=== PATIENT | male | born 1945 | race Caucasian/White ===

== ENCOUNTER 2016-12-14 14:04 | Inpatient (IN) | payer OTHER, BC ==
[2016-12-14 14:48] VITALS: BMI 30.2
[2016-12-14] MEDS ORDERED: MIDAZOLAM HCL 2 MG/2 ML SINGLE DOSE VIAL ONE ×3 (16:09→17:52)
[2016-12-14] MEDS ORDERED: PROPOFOL 20 ML ONE ×3 (16:09→19:11)
[2016-12-14] MEDS ORDERED: LIDOCAINE HCL/PF 2% SDV 5ML VIAL ONE (16:09)
[2016-12-14] MEDS ORDERED: ROPIVACAINE HCL 0.5% 30ML VIAL ONE (16:24)
[2016-12-14] MEDS ORDERED: BUPIVACAINE HCL/PF 0.5% (5MG/ML) 10 ML VIAL ONE (16:38)
[2016-12-14] MEDS ORDERED: HYDROmorphone *PCA* 10MG/50ML DISP.SYRIN PCA ONE (16:56)
[2016-12-14] MEDS ORDERED: ceFAZolin SODIUM 1 GM VIAL ONE (17:25)
[2016-12-14] MEDS ORDERED: HYDROmorphone *PCA* 10MG/50ML DISP.SYRIN PCA SCH (17:30)
[2016-12-14] MEDS ORDERED: VANCOMYCIN 1,000 MG VIAL (RESTRICTED TO ID ONLY) ONE (17:51)
[2016-12-14] MEDS ORDERED: TRANEXAMIC ACID 1000 MG/10 ML VIAL ONE (17:51)
[2016-12-14] MEDS ORDERED: TRANEXAMIC ACID 1000 MG/10 ML VIAL IVPUSH ONE ×2 (19:41→21:30)
[2016-12-14] MEDS ORDERED: MAG HYDROX/AL HYDROX/SIMETH 30 ML UNIT-DOSE CUP PO PRN (20:09)
[2016-12-14] MEDS ORDERED: ONDANSETRON 4 MG/2 ML VIAL IVPB PRN (20:09)
[2016-12-14] MEDS ORDERED: MAGNESIUM HYDROX 2400MG/30ML ORAL SUSPENSION 30 ML CUP PO PRN (20:09)
[2016-12-14] MEDS ORDERED: LACTATED RINGERS SOLUTION 1,000 ML IV SCH (20:15)
[2016-12-14] MEDS ORDERED: PICC LINE 8 ML FLUSH PROTOCOL IVPUSH PRN (20:16)
[2016-12-14 20:47] LABS: SYNOVIAL FLUID LYMPHOCYTES 3 %; SYNOVIAL FLUID MONOCYTES 2 %; SYNOVIAL FLUID NEUTROPHILS 93 %
[2016-12-14] MEDS ORDERED: PATIENT'S OWN MEDICATION (NON-FORMULARY) (Sitagliptin Phos/Metformin Hcl [Janumet 50-500 M PO SCH (22:00)
[2016-12-14] MEDS: metFORMIN HCL 500 MG TABLET (FP) PO SCH (23:00)
[2016-12-14] MEDS: sitaGLIPtin PHOSPHATE 50 MG TABLET PO SCH (23:00)
[2016-12-14] MEDS: FERROUS SO4 325 MG TABLET (FP) PO SCH (23:01)
[2016-12-14] MEDS: ATORVASTATIN CA 20 MG TABLET (FP) PO SCH (23:01)
[2016-12-14] MEDS: GABAPENTIN 300 MG CAPSULE (FP) PO SCH (23:01)
[2016-12-14] MEDS: ASCORBIC ACID 500 MG TABLET (FP) PO SCH (23:01)
[2016-12-14] MEDS: SENNOSIDES/DOCUSATE COMBO (SENNA PLUS) TABLET (UD) PO SCH (23:02)
[2016-12-14] MEDS: METOPROLOL TARTRATE 50 MG TABLET (FP) PO SCH (23:04)
[2016-12-15] MEDS ORDERED: VANCOMYCIN 1,000 MG in DEXTROSE 5%-WATER - 250 ML IVPB SCH ×2 (04:30→10:15)
[2016-12-15] MEDS ORDERED: VANCOMYCIN 1 GRAM (PRE-DOCKED) 1,000 MG/250 ML BAG IVPB ONE (04:30)
[2016-12-15 09:01] LABS: MCH 25.9 pg (25.7-33.7); MCHC 32.2 g/dl (32.0-35.9); MEAN CELL VOLUME 80.5 fl (80-96); MEAN PLT VOLUME 7.6 fl (7.5-11.1); PLATELET COUNT 243 K/MM3 (134-434); RDW 13.1 % (11.9-15.9); WHITE BLOOD COUNT 8.6 K/mm3 (4.0-10.8)
--- NOTE | 2016-12-15 09:06 | CONSULT ---
[id number] medical management HISTORY OF PRESENT ILLNESS: patient is a 71 y/o male with a past medical history of CAD (S/P CABAG '07), HLD, HTN, OA, NIDDM. Patient is s/p Left TKR (, Felice) and left quadricep tendon repair (12/15/15, Felice). He reports pain and swelling to the left knee for 1 week, was evaluated by Dr Viveros in the office, left knee aspirated 12/04/16, +staph epidymedis. He was brought to the OR on 12/14/16, pt is s/p left knee I/D with poly exhange (12/14/16), POD #1, ( Felice). REVIEW OF SYSTEMS: CONSTITUTIONAL: Absent: fever, chills, diaphoresis, generalized weakness, malaise, loss of appetite, weight change HEENT: Absent: rhinorrhea, nasal congestion, throat pain, throat swelling, difficulty swallowing, mouth swelling, ear pain, eye pain, visual changes CARDIOVASCULAR: Absent: chest pain, syncope, palpitations, irregular heart rate, lightheadedness , peripheral edema RESPIRATORY: Absent: cough, shortness of breath, dyspnea with exertion, orthopnea, wheezing, stridor, hemoptysis GASTROINTESTINAL: Absent: abdominal pain, abdominal distension, nausea, vomiting, diarrhea, constipation, melena, hematochezia GENITOURINARY: Absent: dysuria, frequency, urgency, hesitancy, hematuria, flank pain, genital pain MUSCULOSKELETAL: Present: left knee pain upon movement Absent: myalgia, arthralgia, joint swelling, back pain, neck pain SKIN: Absent: rash, itching, pallor HEMATOLOGIC/IMMUNOLOGIC: Absent: easy bleeding, easy bruising, lymphadenopathy, frequent infections ENDOCRINE: Absent: unexplained weight gain, unexplained weight loss, heat intolerance, cold intolerance NEUROLOGIC: Absent: headache, focal weakness or paresthesias, dizziness, unsteady gait, seizure, mental status changes, bladder or bowel incontinence PSYCHIATRIC: Absent: anxiety, depression, suicidal or homicidal ideation, hallucinations. PHYSICAL EXAMINATION Vital Signs - 24 hr 12/14/16 12/14/16 12/14/16 14:33 20:25 20:30 Temperature 99.5 F 97.4 F L 97.4 F L Pulse Rate 89 60 56 L Respiratory 17 16 16 Rate Blood Pressure 110/51 85/45 89/51 O2 Sat by Pulse 98 98 Oximetry (%) 12/14/16 12/14/16 12/14/16 20:35 20:40 20:55 Temperature 97.4 F L 97.4 F L 97.4 F L Pulse Rate 60 60 60 Respiratory 16 16 16 Rate Blood Pressure 74/48 95/47 108/70 O2 Sat by Pulse 99 100 100 Oximetry (%) 12/14/16 12/14/16 12/14/16 21:00 21:10 21:25 Temperature 97.4 F L 97.4 F L Pulse Rate 60 60 67 Respiratory 16 16 20 Rate Blood Pressure 108/70 92/55 95/53 O2 Sat by Pulse 100 100 Oximetry (%) 12/14/16 12/14/16 12/14/16 21:30 21:40 21:55 Temperature 97.4 F L 97.4 F L Pulse Rate 67 62 62 Respiratory 20 16 16 Rate Blood Pressure 95/53 95/53 99/51 O2 Sat by Pulse 99 99 Oximetry (%) 12/14/16 12/14/16 12/14/16 22:02 22:30 23:15 Temperature 97.4 F L 97.4 F L Pulse Rate 62 56 L Respiratory 16 18 Rate Blood Pressure 99/51 94/48 O2 Sat by Pulse 100 Oximetry (%) 12/15/16 12/15/16 01:53 06:00 Temperature 97.6 F Pulse Rate 59 L 59 L Respiratory 17 19 Rate Blood Pressure 100/56 107/55 O2 Sat by Pulse 100 Oximetry (%) PHYSICAL EXAMINATION GENERAL: Awake, alert, and fully oriented, in no acute distress. HEAD: Normal with no signs of trauma. EYES: Pupils equal, round and reactive to light, extraocular movements intact, sclera anicteric, conjunctiva clear. No lid lag. EARS, NOSE, THROAT: Ears normal, nares patent, oropharynx clear without exudates. Moist mucous membranes. NECK: Normal range of motion, supple without lymphadenopathy, JVD, or masses. LUNGS: Breath sounds equal, clear to auscultation bilaterally. No wheezes, and no crackles. No accessory muscle use. HEART: Regular rate and rhythm, normal S1 and S2 without murmur, rub or gallop. ABDOMEN: Soft, nontender, not distended, normoactive bowel sounds, no guarding, no rebound, no masses. No hepatomegaly or splenomegaly. MUSCULOSKELETAL: Normal range of motion at all joints. No bony deformities or tenderness. No CVA tenderness. UPPER EXTREMITIES: 2+ pulses, warm, well-perfused. No cyanosis. No clubbing. Cap refill <2 seconds. No peripheral edema. LOWER EXTREMITIES: 2+ pulses, warm, well-perfused. No calf tenderness. No peripheral edema. LEFT LOWER EXTREMITY: knee immobilizer, scd/milo, less than 3 second capillary refill, +3 pedal pulse. pt is able to move the digits of the foot w/o difficulty. NEUROLOGICAL: Cranial nerves II-XII intact. Normal speech. Normal gait. PSYCHIATRIC: Cooperative. Good eye contact. Appropriate mood and affect. SKIN: Warm, dry, normal turgor, no rashes or lesions noted. Laboratory Results - last 24 hr 12/14/16 12/14/16 12/14/16 05:30 16:04 21:59 POC Glucometer 129 182 Synovial Source Synovial fluid Synovial WBC 97523 Synovial RBC 18638 Synovial Neutrophils 93 Synovial Lymphocytes 3 Synovial Monocytes 2 CBC WBC 8.6 K/mm3 (4.0-10.8) 12/15/16 08:00 RBC 3.29 M/mm3 (4.00-5.60) L D 12/15/16 08:00 Hgb 8.5 GM/dl (11.7-16.9) L D 12/15/16 08:00 Hct 26.5 % (35.4-49) L D 12/15/16 08:00 MCV 80.5 fl (80-96) 12/15/16 08:00 MCHC 32.2 g/dl (32.0-35.9) 12/15/16 08:00 RDW 13.1 % (11.9-15.9) 12/15/16 08:00 Plt Count 243 K/MM3 (134-434) D 12/15/16 08:00 MPV 7.6 fl (7.5-11.1) 12/15/16 08:00 CMP Sodium 133 mmol/L (136-145) L 12/15/16 08:00 Potassium 3.6 mmol/L (3.5-5.1) 12/15/16 08:00 Chloride 98 mmol/L (98-107) 12/15/16 08:00 Carbon Dioxide 25 mmol/L (22-28) 12/15/16 08:00 Anion Gap 10 (8-16) 12/15/16 08:00 BUN 20 mg/dl (7-18) H D 12/15/16 08:00 Creatinine 1.1 mg/dl (0.6-1.3) 12/15/16 08:00 POC Glucometer 182 UNITS (()) 12/14/16 21:59 Random Glucose 132 mg/dl (74-106) H 12/15/16 08:00 Calcium 8.3 mg/dl (8.4-10.2) L 12/15/16 08:00 Active Medications Generic Name Dose Route Start Last Admin Trade Name Freq PRN Reason Stop Dose Admin Al Hydroxide/Mg Hydroxide 30 ml 12/14/16 20:09 Mylanta Oral Suspension - PO Q4H PRN DYSPEPSIA Ascorbic Acid 500 mg 12/14/16 22:00 12/14/16 23:01 Vitamin C - PO 500 mg BID NEHEMIAS Administration Aspirin 325 mg 12/15/16 18:00 Asa - PO BID NEHEMIAS Atorvastatin Calcium 20 mg 12/14/16 22:00 12/14/16 23:01 Lipitor - PO 20 mg HS NEHEMIAS Administration Celecoxib 200 mg 12/15/16 10:00 Celebrex - PO DAILY NEHEMIAS Ferrous Sulfate 325 mg 12/14/16 22:00 12/14/16 23:01 Feosol - PO 325 mg BID NEHEMIAS Administration Gabapentin 300 mg 12/14/16 22:00 12/14/16 23:01 Neurontin - PO 12/17/16 21:59 300 mg BID NEHEMIAS Administration HCTZ/Losartan Potassium 2 tab 12/15/16 10:00 Hyzaar - PO DAILY NEHEMIAS Hydromorphone HCl 10 mg 12/14/16 17:30 12/14/16 21:53 Dilaudid Endodontic Assistant - GENERATOR REBUILDER 12/21/16 17:26 0.2 mg GENERATOR REBUILDER NEHEMIAS Administration Protocol IV Flush 8 ml 12/14/16 20:16 Picc Line Flush IVPUSH PRN PRN Protocol Vancomycin HCl 1,000 mg/ 250 mls @ 250 mls/hr 12/15/16 04:30 Dextrose IVPB Q12H NEHEMIAS Protocol Insulin Aspart 1 vial 12/15/16 07:00 Novolog Vial Sliding Scale - SQ 12/18/16 06:59 TIDAC [facility] Protocol Magnesium Hydroxide 30 ml 12/14/16 20:09 Milk Of Magnesia - PO PRN PRN CONSTIPATION Metformin HCl 500 mg 12/14/16 22:00 12/14/16 23:00 Glucophage - PO 500 mg HS NEHEMIAS Administration Metoprolol Tartrate 50 mg 12/14/16 22:00 12/14/16 23:04 Lopressor - PO Not Given BID NEHEMIAS Multivitamins/Minerals/Vitamin C 1 tab 12/15/16 10:00 Tab-A-Vit - PO DAILY NEHEMIAS Ondansetron HCl 4 mg 12/14/16 20:09 Zofran Injection IVPB Q6H PRN NAUSEA Pantoprazole Sodium 40 mg 12/15/16 10:00 Protonix - PO DAILY NEHEMIAS Paroxetine HCl 10 mg 12/15/16 10:00 Paxil - PO DAILY NEHEMIAS Senna/Docusate Sodium 1 tablet 12/14/16 22:00 12/14/16 23:02 Pericolace - PO 1 tablet BID NEHEMIAS Administration Sitagliptin Phosphate 50 mg 12/14/16 22:00 12/14/16 23:00 Januvia - PO 50 mg HS NEHEMIAS Administration ASSESSMENT/PLAN: 1) s/p left knee I&D w/poly exchange POD #1 - f/u intraoperative cultures, synovial fluid culture 12/07/16, + staph epidermidis, continue vanc (5/5 - ) and cefepime (5/5 - ) - PT as per ortho regimen - continue dilaudid 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 Thank you for this consultative opportunity. Visit type - Emergency Visit Emergency Visit: No - New Patient This patient is new to me today: Yes Date on this admission: 12/15/16 - Critical Care Critical Care patient: No
[2016-12-15 09:14] LABS: ANION GAP 10 (8-16); CALCIUM 8.3 mg/dl (8.4-10.2); CO2 25 mmol/L (22-28); CREATININE 1.1 mg/dl (0.6-1.3); GLUCOSE,RANDOM 132 mg/dl (74-106)
--- NOTE | 2016-12-15 09:52 | PN ---
Progress Note (short form) - Note Progress Note: ANESTHESIOLOGY POST-OP CHECK 71M s/p left knee I&D under spinal anesthesia and left femoral nerve block. Pain 08/22. Denies, N/V, backache, headache. Not yet OOB. Vital Signs Temperature 97.6 F 12/15/16 06:00 Pulse Rate 59 L 12/15/16 06:00 Respiratory Rate 19 12/15/16 06:00 Blood Pressure 107/55 12/15/16 06:00 O2 Sat by Pulse Oximetry (%) 100 12/15/16 06:00 Active Medications Al Hydroxide/Mg Hydroxide (Mylanta Oral Suspension -) 30 ml PO Q4H PRN PRN Reason: DYSPEPSIA Ascorbic Acid (Vitamin C -) 500 mg PO BID [facility] Last Admin: 12/14/16 23:01 Dose: 500 mg Aspirin (Asa -) 325 mg PO BID [facility] Atorvastatin Calcium (Lipitor -) 20 mg PO HS [facility] Last Admin: 12/14/16 23:01 Dose: 20 mg Celecoxib (Celebrex -) 200 mg PO DAILY [facility] Ferrous Sulfate (Feosol -) 325 mg PO BID [facility] Last Admin: 12/14/16 23:01 Dose: 325 mg Gabapentin (Neurontin -) 300 mg PO BID [facility] Stop: 12/17/16 21:59 Last Admin: 12/14/16 23:01 Dose: 300 mg HCTZ/Losartan Potassium (Hyzaar -) 2 tab PO DAILY [facility] Hydromorphone HCl (Dilaudid Safety Representative -) 10 mg LABORATORY CUREMAN LABORATORY CUREMAN [facility] PRN Reason: Protocol Stop: 12/21/16 17:26 Last Admin: 12/14/16 21:53 Dose: 0.2 mg IV Flush (Picc Line Flush) 8 ml IVPUSH PRN PRN PRN Reason: Protocol Vancomycin HCl 1,000 mg/ (Dextrose) 250 mls @ 250 mls/hr IVPB Q12H NEHEMIAS PRN Reason: Protocol Insulin Aspart (Novolog Vial Sliding Scale -) 1 vial SQ TIDAC NEHEMIAS PRN Reason: Protocol Stop: 12/18/16 06:59 Magnesium Hydroxide (Milk Of Magnesia -) 30 ml PO PRN PRN PRN Reason: CONSTIPATION Metformin HCl (Glucophage -) 500 mg PO HS [facility] Last Admin: 12/14/16 23:00 Dose: 500 mg Metoprolol Tartrate (Lopressor -) 50 mg PO BID [facility] Last Admin: 12/14/16 23:04 Dose: Not Given Multivitamins/Minerals/Vitamin C (Tab-A-Vit -) 1 tab PO DAILY [facility] Ondansetron HCl (Zofran Injection) 4 mg IVPB Q6H PRN PRN Reason: NAUSEA Pantoprazole Sodium (Protonix -) 40 mg PO DAILY [facility] Paroxetine HCl (Paxil -) 10 mg PO DAILY [facility] Senna/Docusate Sodium (Pericolace -) 1 tablet PO BID [facility] Last Admin: 12/14/16 23:02 Dose: 1 tablet Sitagliptin Phosphate (Januvia -) 50 mg PO HS [facility] Last Admin: 12/14/16 23:00 Dose: 50 mg GEn: Awake, alert Ext: No motor or sensory deficits No apparent anesthesia complications. Pain well controlled. D/C LABORATORY CUREMAN. Continue management as per primary team
[2016-12-15] MEDS: PANTOPRAZOLE 40 MG TABLET (FP) PO SCH (09:54)
[2016-12-15] MEDS: PARoxetine HCL 10 MG TABLET (FP) PO SCH (09:54)
[2016-12-15] MEDS: SENNOSIDES/DOCUSATE COMBO (SENNA PLUS) TABLET (UD) PO SCH ×2 (09:55→21:14)
[2016-12-15] MEDS: ASCORBIC ACID 500 MG TABLET (FP) PO SCH ×2 (09:56→21:14)
[2016-12-15] MEDS: CELECOXIB 200 MG CAPSULE PO SCH (09:56)
[2016-12-15] MEDS: GABAPENTIN 300 MG CAPSULE (FP) PO SCH ×2 (09:56→21:14)
[2016-12-15] MEDS: MULTIVITAMINS (DAILY MVI) TABLET (FP) PO SCH (09:56)
[2016-12-15] MEDS: FERROUS SO4 325 MG TABLET (FP) PO SCH ×2 (09:57→21:14)
[2016-12-15] MEDS: LOSARTAN 50MG/HCTZ 12.5MG 1 TAB (FP) PO SCH (09:57)
[2016-12-15] MEDS: METOPROLOL TARTRATE 50 MG TABLET (FP) PO SCH ×2 (09:57→21:15)
[2016-12-15] MEDS: INSULIN SLIDING SCALE (NOVOLOG) 1 VIAL SQ SCH ×3 (10:00→19:04)
--- NOTE | 2016-12-15 10:07 | PN ---
Progress Note (short form) - Note Progress Note: ID Consult dictated POD #1 washout/ poly liner exchange L TKR Await operative c/s Obtain BC,ESR,CRP Pending c/s empiric vancomycin/ cefepime
[2016-12-15] MEDS ORDERED: CEFEPIME HCL 1 GM VIAL (RESTRICTED TO ID) IVPB SCH (10:15)
[2016-12-15] MEDS: CEFEPIME 1 GM/100 ML BAG PRE-DOCKED IVPB SCH ×2 (11:44→17:17)
--- NOTE | 2016-12-15 13:10 | CONS ---
DATE OF CONSULTATION: HISTORY: The patient is a 71-year-old male with a history of osteoarthritis who was evaluated for infected total knee replacement. The patient underwent a left total knee replacement on October 20, 2015. His immediate postoperative course was uncomplicated. On or about December 15, 2015 he sustained an injury to his left lower extremity resulting in a quadriceps tear. The patient was seen at that time and recovered. He had been doing well up until approximately 3 weeks ago. He reports that upon awakening approximately 3 weeks ago he had abrupt onset of left knee swelling. It became progressively worse. He was seen as an outpatient where an arthrocentesis was performed and synovial fluid sent for culture. Cultures sent from December 04, 2016 were positive for Staphylococcus epidermidis. Synovial fluid at that time showed 58,000 white cells, 97% of which were polys. He is now admitted to the hospital. A repeat synovial fluid sampling showed 93,000 white cells, 93% of which were polys. He was taken to the operating room where a washout of the left knee was performed with polyethylene liner exchange. Cultures are pending. He denies any fever or chills. He denies history of series soft tissue infection requiring hospitalization or history of MRSA. PAST MEDICAL HISTORY: Positive for osteoarthritis, diabetes mellitus, hypertension, hernia repair. MEDICATIONS: Include metoprolol, losartan, simvastatin, Janumet, Paxil, aspirin. PAST SURGICAL HISTORY: Status post coronary artery bypass graft. ALLERGIES: No known drug allergies. SOCIAL HISTORY: He lives at home. He is a former smoker. Occasional ETOH. REVIEW OF SYSTEMS: Neurologic: No loss of consciousness, seizure activity, focal weakness. Cardiac: Negative chest pain or palpitations. Respiratory: Negative cough or sputum production. Gastrointestinal: Negative vomiting or diarrhea. Genitourinary: Negative for urinary tract infection. LABORATORY DATA: White count 9.2, hematocrit 35.7, platelet count 364, BUN 29, creatinine 1.3. PHYSICAL EXAMINATION: General: He is awake and alert. He is not acutely toxic appearing. Vital Signs: Temperature 97.6, blood pressure 107/55, pulse 59 and regular, respirations 19 per minute. HEENT: Sclerae anicteric. Heart: Sounds S1, S2. Lungs: Clear bilaterally. No rhonchi, rales, or wheezing. Abdomen: Soft. No tenderness elicited. No mass, rebound, or rigidity. Extremities: Left lower extremity is in an immobilizing cast. There is a drainage catheter present with serosanguineous fluid. IMPRESSION: 1. Postoperative day number 1. Washout/polyethylene liner exchange left total knee replacement. 2. Infected left total knee replacement. 3. Azotemia. PLAN: Await culture results. Synovial fluid culture from December 04 grew Staphylococcus epidermidis. We will continue vancomycin 1 g IV piggyback every 12 hours. Add cefepime 1 g IV piggyback every 8 hours pending culture results. Further recommendations pending. Cultures will follow. Thank you for the kind referral. LAWSON NDIAYE M.D. [id number]
[2016-12-15] MEDS: VANCOMYCIN 1 GRAM (PRE-DOCKED) 1,000 MG/250 ML BAG IVPB SCH (17:17)
[2016-12-15] MEDS: ASPIRIN 325 MG TABLET PO SCH ×2 (17:17→21:15)
--- NOTE | 2016-12-15 17:58 | OP ---
DATE OF OPERATION: 12/14/2016 SURGEON: Ge Viveros M.D. SIGN POSTER: Michael Dubose, whose skilled surgical assistance was necessary for the retraction and protection of vital structures, for the handling and implementation of precise and delicate surgical instrumentation as well as overall safe conveyance of the procedure. ANESTHESIOLOGIST: Scott Falk M.D. TYPE OF ANESTHESIA: Femoral nerve block with spinal. PREOPERATIVE DIAGNOSIS: Infected left total knee replacement. POSTOPERATIVE DIAGNOSIS: Probable infected left total knee replacement. PROCEDURE: Irrigation and debridement of probable infected total knee replacement with polyethylene liner exchange. BLOOD LOSS: Approximately 300 mL. ANTIBIOTICS: Administered after obtaining cultures, Kefzol and vancomycin were given after obtaining cultures. Cultures were sent to pathology. Tissue, which was extensive, the entire synovium of the knee was removed, was sent to pathology as well as prior polyethylene spacer. Approximately 12 L of bacitracin polymyxin antibiotics were used during the procedure with gentle lavage. New hardware, new polyethylene spacer was a 15-mm polyethylene spacer, and the prior polyethylene spacer was a 12.5-mm thickness. SURGEON: Ge Viveros M.D. INDICATION: The patient is a 71-year-old male, approximately greater than 1 year status post total knee replacement complicated by quadriceps tendon rupture in the early postoperative period. He had that repaired. Did well, other than some mild valgus instability which was relieved by wearing a hinged knee brace when he was outdoors, indoors he was very pleased with his result, was doing well, and then started to feel swelling in his knee approximately 2 to 3 weeks ago. 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 He waited for some time, came to the office, had moderate effusion without erythema. Denied any fevers, chills, or pain. Described it as stiffness. He had fluid aspirated which was clear yellowish fluid which was sent to the lab for cultures, Gram stain, cell count, crystal analysis. He was also sent for blood work. Blood work was significant for normal white count with elevated erythrocyte sedimentation rate, C-reactive protein. His cultures, he was also sent for Lyme, which was negative. Cultures were initially read as negative. Gram stain was read as negative. Cell count was around 50,000. There were no crystals seen in the fluid. He returned to the office 3 days after the initial aspiration feeling much less stiffness, still not complaining of pain or swelling. He was then recommended given the mixed picture that we were seeing other than the elevated white count, recommended a Synovasure which cannot be done in [place]. I was sent to surgery sent this Sunday, Synovasure was sent and today corrected lab results from the initial aspiration done at the hospital were noted to have staphylococcus epidermidis, which is pansensitive. Patient states that he feels fine, and indeed the swelling was much less than it had been; however, given the above findings and the fact that throbbing, some swelling, and we had growth on his extended culture, I recommended immediate irrigation and debridement of his knee, polyethylene liner and spacer in an attempt to try and if this is indeed an infection, catch the infection early and possibly retain his knee replacement. I explained to the patient in the office and later on to his family members joined him, the urgency of doing this is that there is a chance that this may not work, he may ultimately require removing his knee replacement and placing him on long-term IV antibiotics, I told him our plan for today is to obtain additional cultures, tissue specimens, do an extensive debridement, clean out and replace the interchangeable part, the polyethylene spacer, and treat him with IV antibiotics, obtain an infectious disease consult, and hopefully retain his knee. They understand the risks of failure and the chance that he may ultimately may require additional arthroplasty. I told them that we hopefully are catching the infection early on. Patient and his family understand this. They would like to proceed with a planned procedure. DESCRIPTION OF PROCEDURE: After identification of the left knee with the operating staff, patient as well had administration of regional anesthetic in the preoperative holding area. Spinal was administered by the anesthesiologist. Patient was brought in the operating room where tourniquet was placed high on the left leg, which tourniquet was not used during the procedure. The leg was then prepped and draped in the usual sterile manner. Patient's prior incision was used. There were no signs of subcutaneous infection. The previously repaired quadriceps tendon was then entered. Upon entering it, there was clear to slightly cloudy yellow fluid which was sent for cell count on a stat basis; we still have not received the results, as well as Gram stain and culture. This fluid was evacuated. There was no grossly appearing necrotic tissue nor infected tissue. The patella was everted. The knee was irrigated with copious amounts of antibiotic normal saline solution using the jet lavage. The synovial lining was then dissected off the prosthesis as well as the undersurface of the quadriceps tendon and distal femur proximal tibia and essentially leaving the medial and lateral collateral ligaments, and both surgical debridement as well as blunt scrubbing of the knee with peroxide soaked lap pads as well as followed by again copious amounts of antibiotics normal saline solution sequentially alternating with Betadine, dilute Betadine solution was left to sit for 3 minutes and then evacuated. This was done 7 or 8 times, alternating between the Betadine and peroxide, and then thoroughly irrigating the knee. The polyethylene liner had already been removed. The leg was then re-draped, as well as the surgical team re-gowning themselves sterile gauze, a 2nd set of instruments were brought in as well as cautery and lavage. Knee was once again irrigated with copious amounts of antibiotic normal saline solution. A final dilute Betadine solution was instilled in the knee and let to sit. This was then evacuated. Knee was irrigated with copious amounts of antibiotics normal saline solution. The final polyethylene liner, after trialing it, which after several trials found to have excellent stability with a 15-mm polyethylene spacer with good full knee extension and flexion and no varus or valgus instability. This was then once again irrigated and a Hemovac drain was then placed in the superolateral portion of the knee. The extensor mechanism was loosely reapproximated to itself with [id number] number 1 PDS sutures. Then 1 g of tranexamic acid was instilled in the knee, and vancomycin powder was then placed prior to closing the extensor mechanism. The subcutaneous tissues were closed and skin with PDS and loosely approximating skin edges to allow for some egress with 3-0 nylon sutures. The wounds were then dressed with an Aquacel dressing. The Hemovac drain was secured with Steri-Strips. ABD pads were applied and thigh-high LA stocking was applied. Postoperatively, we are going to request a PICC line placement, the hospitalist service to consult on the patient for management as well as infectious disease consult. We are going to get physical therapy to move the patient . He is going to ambulation, we are not going to do range of motion until the wound heals, which will probably take 3 or 4 weeks. We will follow him closely. Should he have persistent drainage despite antibiotics or other signs of infection, he may ultimately again as explained to him and his family, may also require excisional arthroplasty. GE VIVEROS M.D. [id number]
[2016-12-15] MEDS: metFORMIN HCL 500 MG TABLET (FP) PO SCH (21:14)
[2016-12-15] MEDS: ATORVASTATIN CA 20 MG TABLET (FP) PO SCH (21:14)
[2016-12-15] MEDS: sitaGLIPtin PHOSPHATE 50 MG TABLET PO SCH (21:15)
[2016-12-16] MEDS: CEFEPIME 1 GM/100 ML BAG PRE-DOCKED IVPB SCH ×3 (01:58→18:22)
[2016-12-16] MEDS: VANCOMYCIN 1 GRAM (PRE-DOCKED) 1,000 MG/250 ML BAG IVPB SCH ×3 (03:46→18:47)
[2016-12-16 07:48] LABS: MCH 25.8 pg (25.7-33.7); MCHC 32.4 g/dl (32.0-35.9); MEAN CELL VOLUME 79.7 fl (80-96); MEAN PLT VOLUME 7.4 fl (7.5-11.1); PLATELET COUNT 264 K/MM3 (134-434)
--- NOTE | 2016-12-16 08:26 | PN ---
Progress Note, Physician History of Present Illness: No c/o L knee pain No fever/ chills Tolerating antibiotics Afebrile Cultures pending - Current Medication List Current Medications: Active Medications Al Hydroxide/Mg Hydroxide (Mylanta Oral Suspension -) 30 ml PO Q4H PRN PRN Reason: DYSPEPSIA Ascorbic Acid (Vitamin C -) 500 mg PO BID [facility] Last Admin: 12/15/16 21:14 Dose: 500 mg Aspirin (Asa -) 325 mg PO BID [facility] Last Admin: 12/15/16 21:15 Dose: Not Given Atorvastatin Calcium (Lipitor -) 20 mg PO [facility] Last Admin: 12/15/16 21:14 Dose: 20 mg Cefepime HCl (Maxipime 1gm Ivpb Pre-Docked) 1 gm IVPB Q8H-IV [facility] Last Admin: 12/16/16 01:58 Dose: 1 gm Celecoxib (Celebrex -) 200 mg PO DAILY [facility] Last Admin: 12/15/16 09:56 Dose: 200 mg Ferrous Sulfate (Feosol -) 325 mg PO BID [facility] Last Admin: 12/15/16 21:14 Dose: 325 mg Gabapentin (Neurontin -) 300 mg PO BID [facility] Stop: 12/17/16 21:59 Last Admin: 12/15/16 21:14 Dose: 300 mg HCTZ/Losartan Potassium (Hyzaar -) 2 tab PO DAILY [facility] Last Admin: 12/15/16 09:57 Dose: Not Given Hydromorphone HCl (Dilaudid Teleprinter Installer -) 10 mg [employer]USTOMER [employer]OR[employer] DIVISION SUPERVISOR CUSTOMER RECORDS DIVISION SUPERVISOR [facility] PRN Reason: Protocol Stop: 12/21/16 17:26 Last Admin: 12/14/16 21:53 Dose: 0.2 mg IV Flush (Picc Line Flush) 8 ml IVPUSH PRN PRN PRN Reason: Protocol Insulin Aspart (Novolog Vial Sliding Scale -) 1 vial SQ TIDAC [facility]HEMIAS PRN Reason: Protocol Stop: 12/18/16 06:59 Last Admin: 12/15/16 19:04 Dose: 4 unit Magnesium Hydroxide (Milk Of Magnesia -) 30 ml PO PRN PRN PRN Reason: CONSTIPATION Metformin HCl (Glucophage -) 500 mg PO [facility] Last Admin: 12/15/16 21:14 Dose: 500 mg Metoprolol Tartrate (Lopressor -) 50 mg PO BID [facility] Last Admin: 12/15/16 21:15 Dose: 50 mg Multivitamins/Minerals/Vitamin C (Tab-A-Vit -) 1 tab PO DAILY [facility] Last Admin: 12/15/16 09:56 Dose: 1 tab Ondansetron HCl (Zofran Injection) 4 mg IVPB Q6H PRN PRN Reason: NAUSEA Pantoprazole Sodium (Protonix -) 40 mg PO DAILY [facility] Last Admin: 12/15/16 09:54 Dose: 40 mg Paroxetine HCl (Paxil -) 10 mg PO DAILY [facility] Last Admin: 12/15/16 09:54 Dose: 10 mg Senna/Docusate Sodium (Pericolace -) 1 tablet PO BID [facility] Last Admin: 12/15/16 21:14 Dose: 1 tablet Sitagliptin Phosphate (Januvia -) 50 mg PO HS [facility] Last Admin: 12/15/16 21:15 Dose: 50 mg Vancomycin HCl (Vancomycin (Pre-Docked)) 1,000 mg IVPB Q12H [facility] Last Admin: 12/16/16 03:46 Dose: 1,000 mg - Objective Vital Signs: Vital Signs Temperature 99.3 F 12/16/16 06:41 Pulse Rate 82 12/16/16 06:41 Respiratory Rate 18 12/16/16 06:41 Blood Pressure 120/50 12/16/16 06:41 O2 Sat by Pulse Oximetry (%) 97 12/16/16 06:41 Constitutional: Yes: No Distress Eyes: Yes: Conjunctiva Clear Cardiovascular: Yes: Regular Rate and Rhythm, S1, S2 Respiratory: Yes: CTA Bilaterally Gastrointestinal: Yes: Normal Bowel Sounds, Soft. No: Tenderness Extremities: Yes: Other (post op dressing in place) Labs: CBC, BMP 12/16/16 07:12 12/15/16 08:00 Assessment/Plan POD #2 L TKR washout/poly liner replacement Await cutures Continue empiric vancomycin/ cefepime
[2016-12-16] MEDS: PARoxetine HCL 10 MG TABLET (FP) PO SCH (09:49)
[2016-12-16] MEDS: METOPROLOL TARTRATE 50 MG TABLET (FP) PO SCH (09:50)
[2016-12-16] MEDS: ASCORBIC ACID 500 MG TABLET (FP) PO SCH ×2 (09:50→21:19)
[2016-12-16] MEDS: MULTIVITAMINS (DAILY MVI) TABLET (FP) PO SCH (09:52)
[2016-12-16] MEDS: SENNOSIDES/DOCUSATE COMBO (SENNA PLUS) TABLET (UD) PO SCH ×2 (09:52→21:19)
[2016-12-16] MEDS: PANTOPRAZOLE 40 MG TABLET (FP) PO SCH (09:52)
[2016-12-16] MEDS: LOSARTAN 50MG/HCTZ 12.5MG 1 TAB (FP) PO SCH (09:53)
[2016-12-16] MEDS: ASPIRIN 325 MG TABLET PO SCH ×2 (09:53→21:18)
[2016-12-16] MEDS: CELECOXIB 200 MG CAPSULE PO SCH (09:54)
[2016-12-16] MEDS: GABAPENTIN 300 MG CAPSULE (FP) PO SCH ×2 (09:54→21:19)
[2016-12-16] MEDS: INSULIN SLIDING SCALE (NOVOLOG) 1 VIAL SQ SCH ×2 (09:55→16:10)
[2016-12-16] MEDS: FERROUS SO4 325 MG TABLET (FP) PO SCH ×2 (10:30→21:20)
--- NOTE | 2016-12-16 11:32 | PN ---
[id number]/poly exchange. WBC within normal limits at 9.0. No fever. Ambulating well. Not using PROFESSOR OF ENVIRONMENTAL STUDIES bolus doses. Vital Signs Period Temp Pulse Resp BP Sys/Taylor Pulse Ox Last 24 Hr 98.7 F-99.3 F 69-82 18-18 100-120/50-76 97-99 GENERAL: The patient is awake, alert, and fully oriented, in no acute distress. EYES: PERRL, extraocular movements intact, sclera anicteric, conjunctiva clear. No ptosis. ENT: Ears normal, nares patent, oropharynx clear without exudates, moist mucous membranes. NECK: Trachea midline, full range of motion, supple. LUNGS: Breath sounds equal, clear to auscultation bilaterally, no wheezes, no crackles, no accessory muscle use. HEART: Regular rate and rhythm, S1, S2 without murmur, rub or gallop. ABDOMEN: Soft, nontender, nondistended, normoactive bowel sounds, no guarding, no rebound, no hepatosplenomegaly, no masses. EXTREMITIES: 2+ pulses, warm, well-perfused, no edema. Left knee dressing under immobilizer clean, dry, intact. Drain with scant sanguinous output. NEUROLOGICAL: Cranial nerves II through XII grossly intact. Normal speech, gait not observed. PSYCH: Normal mood, normal affect. SKIN: Warm, dry, normal turgor, no rashes or lesions noted. Laboratory Results - last 24 hr 12/15/16 12/15/16 12/15/16 11:42 15:21 19:02 WBC RBC Hgb Hct MCV MCHC RDW Plt Count MPV ESR POC Glucometer 160 168 C-Reactive Protein 15.6 H D 12/16/16 12/16/16 12/16/16 06:44 07:12 07:12 WBC 9.0 RBC 3.19 L Hgb 8.2 L Hct 25.4 L MCV 79.7 L MCHC 32.4 RDW 13.0 Plt Count 264 MPV 7.4 L ESR 125 H POC Glucometer 158 C-Reactive Protein Active Medications Generic Name Dose Route Start Last Admin Trade Name Freq PRN Reason Stop Dose Admin Al Hydroxide/Mg Hydroxide 30 ml 12/14/16 20:09 Mylanta Oral Suspension - PO Q4H PRN DYSPEPSIA Ascorbic Acid 500 mg 12/14/16 22:00 12/16/16 09:50 Vitamin C - PO 500 mg BID [facility] Administration Aspirin 325 mg 12/15/16 18:00 12/16/16 09:53 Asa - PO 325 mg BID [facility] Administration Atorvastatin Calcium 20 mg 12/14/16 22:00 12/15/16 21:14 Lipitor - PO 20 mg HS [facility] Administration Cefepime HCl 1 gm 12/15/16 10:30 12/16/16 09:54 Maxipime 1gm Ivpb Pre-Docked IVPB 1 gm Q8H-IV [facility] Administration Celecoxib 200 mg 12/15/16 10:00 12/16/16 09:54 Celebrex - PO 200 mg DAILY [facility] Administration Ferrous Sulfate 325 mg 12/14/16 22:00 12/15/16 21:14 Feosol - PO 325 mg BID [facility] Administration Gabapentin 300 mg 12/14/16 22:00 12/16/16 09:54 Neurontin - PO 12/17/16 21:59 300 mg BID [facility] Administration HCTZ/Losartan Potassium 2 tab 12/15/16 10:00 12/16/16 09:53 Hyzaar - PO 2 tab DAILY [facility] Administration Hydromorphone HCl 10 mg 12/14/16 17:30 12/14/16 21:53 Dilaudid Service Tester - PROFESSOR OF ENVIRONMENTAL STUDIES 12/21/16 17:26 0.2 mg PROFESSOR OF ENVIRONMENTAL STUDIES [facility]AS Administration Protocol IV Flush 8 ml 12/14/16 20:16 Picc Line Flush IVPUSH PRN PRN Protocol Insulin Aspart 1 vial 12/15/16 07:00 12/16/16 09:55 Novolog Vial Sliding Scale - SQ 12/18/16 06:59 4 unit TIDAC NEHEMIAS Administration Protocol Magnesium Hydroxide 30 ml 12/14/16 20:09 Milk Of Magnesia - PO PRN PRN CONSTIPATION Metformin HCl 500 mg 12/14/16 22:00 12/15/16 21:14 Glucophage - PO 500 mg HS [facility] Administration Metoprolol Tartrate 50 mg 12/14/16 22:00 12/16/16 09:50 Lopressor - PO 50 mg BID [facility] Administration Multivitamins/Minerals/Vitamin C 1 tab 12/15/16 10:00 12/16/16 09:52 Tab-A-Vit - PO 1 tab DAILY [facility] Administration Ondansetron HCl 4 mg 12/14/16 20:09 Zofran Injection IVPB Q6H PRN NAUSEA Pantoprazole Sodium 40 mg 12/15/16 10:00 12/16/16 09:52 Protonix - PO 40 mg DAILY [facility] Administration Paroxetine HCl 10 mg 12/15/16 10:00 12/16/16 09:49 Paxil - PO 10 mg DAILY [facility] Administration Senna/Docusate Sodium 1 tablet 12/14/16 22:00 12/16/16 09:52 Pericolace - PO 1 tablet BID [facility] Administration Sitagliptin Phosphate 50 mg 12/14/16 22:00 12/15/16 21:15 Januvia - PO 50 mg HS [facility] Administration Vancomycin HCl 1,000 mg 12/15/16 16:00 12/16/16 03:46 Vancomycin (Pre-Docked) IVPB 1,000 mg Q12H [facility] Administration ASSESSMENT/PLAN: 71 year old male with a history of CAD s/p CABG, HLD, HTN, OA, and NIDDM admitted with infected left TKR. 1. Ortho: Infected left TKR, POD #2 s/p washout/poly exchange -All cultures negative -Continue Vanc (5/5 - ) and cefepime (5/5 - ) -PT, WBAT -Continue dilaudid PROFESSOR OF ENVIRONMENTAL STUDIES -Likely for drain removal and PICC placement Sunday 2. CARDS CAD -Continue Lipitor HTN -Episode of hypotension yesterday; Hyzaar and Lopressor held, resumed today, but is again hypotensive (asymptomatic)- will hold for now, re-start incrementally 3. ENDO: NIDDM -Continue Auguvia with ISS -Fingersticks ACHS 4. HEME: Normocytic anemia -Hgb 8.2, stable -Continue iron supplementation -Follow 5. F/E/N -Diabetic diet DISPO: Patient prefers dc to rehab as he will not have anyone to help him at home next week. Visit type - Emergency Visit Emergency Visit: Yes ED Registration Date: 12/14/16 Care time: The patient presented to the Emergency Department on the above date and was hospitalized for further evaluation of their emergent condition. - New Patient This patient is new to me today: Yes Date on this admission: 12/14/16 - Critical Care Critical Care patient: No - Discharge Referral Referred to [facility] Med P.C.: No
[2016-12-16] MEDS: VANCOMYCIN 1 GRAM (PRE-DOCKED) 250 ML IVPB SCH (21:18)
[2016-12-16] MEDS: ATORVASTATIN CA 20 MG TABLET (FP) PO SCH (21:19)
[2016-12-16] MEDS: sitaGLIPtin PHOSPHATE 50 MG TABLET PO SCH (21:19)
[2016-12-16] MEDS: metFORMIN HCL 500 MG TABLET (FP) PO SCH (21:48)
[2016-12-17] MEDS: CEFEPIME 1 GM/100 ML BAG PRE-DOCKED IVPB SCH ×2 (01:56→09:41)
[2016-12-17 07:56] LABS: BASOPHIL 0.4 % (0-2.0); EOSINOPHIL 1.2 % (0-4.5); MCH 25.2 pg (25.7-33.7); MCHC 32.1 g/dl (32.0-35.9); MEAN CELL VOLUME 78.5 fl (80-96); MEAN PLT VOLUME 7.7 fl (7.5-11.1); NEUTROPHILS 80.5 % (42.8-82.8); PLATELET COUNT 253 K/MM3 (134-434); RDW 12.9 % (11.9-15.9); WHITE BLOOD COUNT 8.6 K/mm3 (4.0-10.8)
[2016-12-17 07:59] LABS: ANION GAP 9 (8-16); CALCIUM 8.2 mg/dl (8.4-10.2); CO2 24 mmol/L (22-28); CREATININE 1.3 mg/dl (0.6-1.3); GLUCOSE,RANDOM 150 mg/dl (74-106)
--- NOTE | 2016-12-17 09:17 | PN ---
[id number] Vital Signs Period Temp Pulse Resp BP Sys/Taylor Pulse Ox Last 24 Hr 98.2 F-98.4 F 66-70 18-19 89-101/39-57 97-99 GENERAL: The patient is awake, alert, and fully oriented, in no acute distress. HEAD: Normal with no signs of trauma. EYES: PERRL, extraocular movements intact, sclera anicteric, conjunctiva clear. No ptosis. ENT: Ears normal, nares patent, oropharynx clear without exudates, moist mucous membranes. NECK: Trachea midline, full range of motion, supple. LUNGS: Breath sounds equal, clear to auscultation bilaterally, no wheezes, no crackles, no accessory muscle use. HEART: Regular rate and rhythm, S1, S2 without murmur, rub or gallop. ABDOMEN: Soft, nontender, nondistended, normoactive bowel sounds, no guarding, no rebound, no hepatosplenomegaly, no masses. EXTREMITIES: 2+ pulses, warm, well-perfused, no edema. NEUROLOGICAL: Cranial nerves II through XII grossly intact. Normal speech, gait not observed. PSYCH: Normal mood, normal affect. SKIN: Warm, dry, normal turgor, no rashes or lesions noted Laboratory Results - last 24 hr 12/16/16 12/16/16 12/17/16 15:30 16:02 07:00 WBC 8.6 RBC 3.06 L Hgb 7.7 L Hct 24.0 L MCV 78.5 L MCHC 32.1 RDW 12.9 Plt Count 253 MPV 7.7 Neutrophils % 80.5 Lymphocytes % 11.3 D Monocytes % 6.6 Eosinophils % 1.2 D Basophils % 0.4 Sodium Potassium Chloride Carbon Dioxide Anion Gap BUN Creatinine POC Glucometer 164 Random Glucose Calcium Vancomycin Trough 17.599 H* 12/17/16 07:00 WBC RBC Hgb Hct MCV MCHC RDW Plt Count MPV Neutrophils % Lymphocytes % Monocytes % Eosinophils % Basophils % Sodium 136 Potassium 3.9 Chloride 103 Carbon Dioxide 24 Anion Gap 9 BUN 19 H Creatinine 1.3 POC Glucometer Random Glucose 150 H Calcium 8.2 L Vancomycin Trough Active Medications Generic Name Dose Route Start Last Admin Trade Name Freq PRN Reason Stop Dose Admin Al Hydroxide/Mg Hydroxide 30 ml 12/14/16 20:09 Mylanta Oral Suspension - PO Q4H PRN DYSPEPSIA Ascorbic Acid 500 mg 12/14/16 22:00 12/16/16 21:19 Vitamin C - PO 500 mg BID [facility] Administration Aspirin 325 mg 12/15/16 18:00 12/16/16 21:18 Asa - PO 325 mg BID [facility] Administration Atorvastatin Calcium 20 mg 12/14/16 22:00 12/16/16 21:19 Lipitor - PO 20 mg HS [facility] Administration Cefepime HCl 1 gm 12/15/16 10:30 12/17/16 01:56 Maxipime 1gm Ivpb Pre-Docked IVPB 1 gm Q8H-IV [facility] Administration Celecoxib 200 mg 12/15/16 10:00 12/16/16 09:54 Celebrex - PO 200 mg DAILY [facility] Administration Ferrous Sulfate 325 mg 12/14/16 22:00 12/16/16 21:20 Feosol - PO 325 mg BID [facility] Administration Gabapentin 300 mg 12/14/16 22:00 12/16/16 21:19 Neurontin - PO 12/17/16 21:59 300 mg BID [facility] Administration Hydromorphone HCl 10 mg 12/14/16 17:30 12/14/16 21:53 Dilaudid Cilnical Scientist - GUN PERFORATOR LOADER 12/21/16 17:26 0.2 mg GUN PERFORATOR LOADER [facility]MIAS Administration Protocol IV Flush 8 ml 12/14/16 20:16 Picc Line Flush IVPUSH PRN PRN Protocol Vancomycin HCl 250 mls @ 150 mls/hr 12/16/16 21:00 12/16/16 21:18 Vancomycin (Pre-Docked) IVPB 150 mls/hr DAILY@2100 [facility] Administration Insulin Aspart 1 vial 12/15/16 07:00 12/16/16 16:10 Novolog Vial Sliding Scale - SQ 12/18/16 06:59 4 unit TIDAC NEHEMIAS Administration Protocol Magnesium Hydroxide 30 ml 12/14/16 20:09 Milk Of Magnesia - PO PRN PRN CONSTIPATION Metformin HCl 500 mg 12/14/16 22:00 12/16/16 21:48 Glucophage - PO 500 mg HS [facility] Administration Multivitamins/Minerals/Vitamin C 1 tab 12/15/16 10:00 12/16/16 09:52 Tab-A-Vit - PO 1 tab DAILY [facility] Administration Ondansetron HCl 4 mg 12/14/16 20:09 Zofran Injection IVPB Q6H PRN NAUSEA Pantoprazole Sodium 40 mg 12/15/16 10:00 12/16/16 09:52 Protonix - PO 40 mg DAILY [facility] Administration Paroxetine HCl 10 mg 12/15/16 10:00 12/16/16 09:49 Paxil - PO 10 mg DAILY [facility] Administration Senna/Docusate Sodium 1 tablet 12/14/16 22:00 12/16/16 21:19 Pericolace - PO 1 tablet BID [facility] Administration Sitagliptin Phosphate 50 mg 12/14/16 22:00 12/16/16 21:19 Januvia - PO 50 mg HS [facility] Administration ASSESSMENT/PLAN:ASSESSMENT/PLAN: 71 year old male with a history of CAD s/p CABG , HLD, HTN, OA, and NIDDM admitted with infected left TKR. 1. Ortho: Infected left TKR, POD #2 s/p washout/poly exchange -All cultures negative -Continue Vanc (5/5 - ) and cefepime (5/5 - ) -PT, WBAT -Continue dilaudid GUN PERFORATOR LOADER -Drain removed today by Dr. Viveros 2. CARDS CAD -Continue Lipitor HTN -Holding anti-hypertensives as BPs have been low 3. ENDO: NIDDM -Continue Januvia with ISS -Fingersticks ACHS 4. HEME: Normocytic anemia -Hgb 7.7 -Continue iron supplementation -Follow; transfuse for hgb <7 or symptoms 5. F/E/N -Diabetic diet DISPO: Patient prefers dc to rehab as he will not have anyone to help him at home next week. Needs PICC placement tomorrow, then can be dc on outpatient abx. Visit type - Emergency Visit Emergency Visit: Yes ED Registration Date: 12/14/16 Care time: The patient presented to the Emergency Department on the above date and was hospitalized for further evaluation of their emergent condition. - New Patient This patient is new to me today: No - Critical Care Critical Care patient: No - Discharge Referral Referred to [facility] Med P.C.: No
[2016-12-17] MEDS: SENNOSIDES/DOCUSATE COMBO (SENNA PLUS) TABLET (UD) PO SCH ×2 (09:38→21:29)
[2016-12-17] MEDS: GABAPENTIN 300 MG CAPSULE (FP) PO SCH (09:39)
[2016-12-17] MEDS: CELECOXIB 200 MG CAPSULE PO SCH (09:40)
[2016-12-17] MEDS: ASCORBIC ACID 500 MG TABLET (FP) PO SCH ×2 (09:40→21:29)
[2016-12-17] MEDS: ASPIRIN 325 MG TABLET PO SCH ×2 (09:40→21:29)
[2016-12-17] MEDS: MULTIVITAMINS (DAILY MVI) TABLET (FP) PO SCH (09:40)
[2016-12-17] MEDS: PARoxetine HCL 10 MG TABLET (FP) PO SCH (09:40)
[2016-12-17] MEDS: INSULIN SLIDING SCALE (NOVOLOG) 1 VIAL SQ SCH ×2 (09:41→16:26)
[2016-12-17] MEDS: PANTOPRAZOLE 40 MG TABLET (FP) PO SCH (09:41)
[2016-12-17] MEDS: FERROUS SO4 325 MG TABLET (FP) PO SCH ×2 (09:42→21:29)
[2016-12-17] MEDS ORDERED: PICC LINE 8 ML FLUSH PROTOCOL IVPUSH PRN (11:28)
[2016-12-17] MEDS: sitaGLIPtin PHOSPHATE 50 MG TABLET PO SCH (21:29)
[2016-12-17] MEDS: VANCOMYCIN 1 GRAM (PRE-DOCKED) 250 ML IVPB SCH (21:29)
[2016-12-17] MEDS: ATORVASTATIN CA 20 MG TABLET (FP) PO SCH (21:29)
[2016-12-17] MEDS: metFORMIN HCL 500 MG TABLET (FP) PO SCH (21:30)
[2016-12-18] MEDS: CEFEPIME 1 GM/100 ML BAG PRE-DOCKED IVPB SCH ×4 (01:27→17:40)
[2016-12-18 08:22] LABS: BASOPHIL 0.1 % (0-2.0); MCH 24.8 pg (25.7-33.7); MCHC 31.2 g/dl (32.0-35.9); MEAN CELL VOLUME 79.7 fl (80-96); MEAN PLT VOLUME 7.4 fl (7.5-11.1); NEUTROPHILS 82.3 % (42.8-82.8); PLATELET COUNT 282 K/MM3 (134-434); RDW 13.3 % (11.9-15.9); WHITE BLOOD COUNT 8.6 K/mm3 (4.0-10.8)
[2016-12-18 08:49] LABS: CALCIUM 8.2 mg/dl (8.4-10.2); COCKROFT - GAULT 78.91; CREATININE 1.3 mg/dl (0.6-1.3)
[2016-12-18] MEDS ORDERED: PICC LINE 8 ML FLUSH PROTOCOL IVPUSH PRN (09:03)
[2016-12-18 09:11] LABS: INR 1.17 (0.82-1.09); PROTHROMBIN TIME (PATIENT) 13.1 SEC (10.2-13.0)
[2016-12-18] MEDS: ASPIRIN 325 MG TABLET PO SCH ×2 (09:55→21:28)
[2016-12-18] MEDS: PARoxetine HCL 10 MG TABLET (FP) PO SCH (09:56)
[2016-12-18] MEDS: PANTOPRAZOLE 40 MG TABLET (FP) PO SCH (09:56)
[2016-12-18] MEDS: ASCORBIC ACID 500 MG TABLET (FP) PO SCH ×2 (09:56→21:28)
[2016-12-18] MEDS: MULTIVITAMINS (DAILY MVI) TABLET (FP) PO SCH (09:56)
[2016-12-18] MEDS: CELECOXIB 200 MG CAPSULE PO SCH (09:57)
[2016-12-18] MEDS: SENNOSIDES/DOCUSATE COMBO (SENNA PLUS) TABLET (UD) PO SCH ×2 (09:57→21:28)
[2016-12-18] MEDS: FERROUS SO4 325 MG TABLET (FP) PO SCH ×2 (09:57→21:28)
--- NOTE | 2016-12-18 10:07 | PN ---
Progress Note, Physician History of Present Illness: Awake,alert No c/o knee pain No fever/ chills Tolerating antibiotics - Current Medication List Current Medications: Active Medications Al Hydroxide/Mg Hydroxide (Mylanta Oral Suspension -) 30 ml PO Q4H PRN PRN Reason: DYSPEPSIA Ascorbic Acid (Vitamin C -) 500 mg PO BID [facility] Last Admin: 12/18/16 09:56 Dose: 500 mg Aspirin (Asa -) 325 mg PO BID [facility] Last Admin: 12/18/16 09:55 Dose: 325 mg Atorvastatin Calcium (Lipitor -) 20 mg PO HS [facility] Last Admin: 12/17/16 21:29 Dose: 20 mg Cefepime HCl (Maxipime 1gm Ivpb Pre-Docked) 1 gm IVPB Q8H-IV [facility] Last Admin: 12/18/16 09:52 Dose: 1 gm Celecoxib (Celebrex -) 200 mg PO DAILY [facility] Last Admin: 12/18/16 09:57 Dose: 200 mg Ferrous Sulfate (Feosol -) 325 mg PO BID [facility] Last Admin: 12/18/16 09:57 Dose: 325 mg IV Flush (Picc Line Flush) 8 ml IVPUSH PRN PRN PRN Reason: Protocol IV Flush (Picc Line Flush) 8 ml IVPUSH PRN PRN PRN Reason: Protocol IV Flush (Picc Line Flush) 8 ml IVPUSH PRN PRN PRN Reason: Protocol Vancomycin HCl (Vancomycin (Pre-Docked)) 250 mls @ 150 mls/hr IVPB DAILY@2100 [facility] Last Admin: 12/17/16 21:29 Dose: 150 mls/hr Magnesium Hydroxide (Milk Of Magnesia -) 30 ml PO PRN PRN PRN Reason: CONSTIPATION Last Admin: 12/17/16 22:29 Dose: 30 ml Metformin HCl (Glucophage -) [address] [facility] Last Admin: 12/17/16 21:30 Dose: 500 mg Multivitamins/Minerals/Vitamin C (Tab-A-Vit -) 1 tab PO DAILY [facility] Last Admin: 12/18/16 09:56 Dose: 1 tab Ondansetron HCl (Zofran Injection) 4 mg IVPB Q6H PRN PRN Reason: NAUSEA Pantoprazole Sodium (Protonix -) 40 mg PO DAILY [facility] Last Admin: 12/18/16 09:56 Dose: 40 mg Paroxetine HCl (Paxil -) 10 mg PO DAILY [facility] Last Admin: 12/18/16 09:56 Dose: 10 mg Senna/Docusate Sodium (Pericolace -) 1 tablet PO BID [facility] Last Admin: 12/18/16 09:57 Dose: 1 tablet Sitagliptin Phosphate (Januvia -) 50 mg PO HS [facility] Last Admin: 12/17/16 21:29 Dose: 50 mg - Objective Vital Signs: Vital Signs Temperature 97.5 F L 12/18/16 06:00 Pulse Rate 77 12/18/16 06:00 Respiratory Rate 18 12/18/16 06:00 Blood Pressure 124/62 12/18/16 06:00 O2 Sat by Pulse Oximetry (%) 98 12/17/16 22:20 Constitutional: Yes: No Distress Eyes: Yes: Conjunctiva Clear Cardiovascular: Yes: Regular Rate and Rhythm, S1, S2 Respiratory: Yes: CTA Bilaterally Gastrointestinal: Yes: Normal Bowel Sounds, Soft. No: Tenderness Extremities: Yes: Other (L knee swelling No erythema/ warmth) Labs: CBC, BMP 12/18/16 07:35 12/18/16 07:35 INR, PTT INR 1.17 (0.82-1.09) 12/18/16 07:35 Assessment/Plan POD #4 L TKR washout/poly liner replacement Cultures prelim no growth Continue empiric vancomycin/ cefepime
--- NOTE | 2016-12-18 11:32 | PN ---
Progress Note (short form) - Note Progress Note: Pt See. Doing well on IV LANGUAGES AND LITERATURE INSTRUCTOR. [place] LANGUAGES AND LITERATURE INSTRUCTOR usage. No sig n/v/pruritis/sedation. PIcc line placement today and likely d/c home tomorrow. Will D/C LANGUAGES AND LITERATURE INSTRUCTOR and start percocet prn Discussed with patient and RN.
--- NOTE | 2016-12-18 12:21 | PN ---
[id number] utilizing his human resources office manager ., OBJECTIVE:71 year old male with a history of CAD s/p CABG, HLD, HTN, OA, and NIDDM admitted with infected left TKR-->s/p left knee I&D with poly exchange post op day 4 Vital Signs Period Temp Pulse Resp BP Sys/Taylor Pulse Ox Last 24 Hr 97.5 F-98.6 F 70-84 18-18 107-124/42-62 96-98 GENERAL: The patient is awake, alert, and fully oriented, in no acute distress. HEAD: Normal with no signs of trauma. EYES: PERRL, extraocular movements intact, sclera anicteric, conjunctiva clear. No ptosis. ENT: Ears normal, nares patent, oropharynx clear without exudates, moist mucous membranes. NECK: Trachea midline, full range of motion, supple. LUNGS: Breath sounds equal, clear to auscultation bilaterally, no wheezes, no crackles, no accessory muscle use. HEART: Regular rate and rhythm, S1, S2 without murmur, rub or gallop. ABDOMEN: Soft, nontender, nondistended, normoactive bowel sounds, no guarding, no rebound, no hepatosplenomegaly, no masses. EXTREMITIES: 2+ pulses, warm, well-perfused, no edema. LEFT LOWER EXTREMITY: knee immobilizer, less than 3 second capillary refill, +3 pedal pulse NEUROLOGICAL: Cranial nerves II through XII grossly intact. Normal speech, gait not observed. PSYCH: Normal mood, normal affect. SKIN: Warm, dry, normal turgor, no rashes or lesions noted Laboratory Results - last 24 hr 12/17/16 12/18/16 12/18/16 16:21 06:23 07:35 WBC 8.6 RBC 3.22 L Hgb 8.0 L Hct 25.6 L MCV 79.7 L MCHC 31.2 L RDW 13.3 Plt Count 282 MPV 7.4 L Neutrophils % 82.3 Lymphocytes % 10.6 Monocytes % 6.0 Eosinophils % 1.0 Basophils % 0.1 INR Sodium Potassium Chloride Carbon Dioxide Anion Gap BUN Creatinine POC Glucometer 155 169 Random Glucose Calcium 12/18/16 12/18/16 07:35 07:35 WBC RBC Hgb Hct MCV MCHC RDW Plt Count MPV Neutrophils % Lymphocytes % Monocytes % Eosinophils % Basophils % INR 1.17 Sodium 137 Potassium 4.0 Chloride 103 Carbon Dioxide 26 Anion Gap 8 BUN 17 Creatinine 1.3 POC Glucometer Random Glucose 154 H Calcium 8.2 L Active Medications Generic Name Dose Route Start Last Admin Trade Name Ihsanq PRN Reason Stop Dose Admin Al Hydroxide/Mg Hydroxide 30 ml 12/14/16 20:09 Mylanta Oral Suspension - PO Q4H PRN DYSPEPSIA Ascorbic Acid 500 mg 12/14/16 22:00 12/18/16 09:56 Vitamin C - PO 500 mg BID [facility] Administration Aspirin 325 mg 12/15/16 18:00 12/18/16 09:55 Asa - PO 325 mg BID [facility] Administration Atorvastatin Calcium 20 mg 12/14/16 22:00 12/17/16 21:29 Lipitor - PO 20 mg HS [facility] Administration Cefepime HCl 1 gm 12/15/16 10:30 12/18/16 09:52 Maxipime 1gm Ivpb Pre-Docked IVPB 1 gm Q8H-IV [facility] Administration Celecoxib 200 mg 12/15/16 10:00 12/18/16 09:57 Celebrex - PO 200 mg DAILY [facility] Administration Ferrous Sulfate 325 mg 12/14/16 22:00 12/18/16 09:57 Feosol - PO 325 mg BID [facility] Administration IV Flush 8 ml 12/14/16 20:16 Picc Line Flush IVPUSH PRN PRN Protocol IV Flush 8 ml 12/17/16 11:28 Picc Line Flush IVPUSH PRN PRN Protocol IV Flush 8 ml 12/18/16 09:03 Picc Line Flush IVPUSH PRN PRN Protocol Vancomycin HCl 250 mls @ 150 mls/hr 12/16/16 21:00 12/17/16 21:29 Vancomycin (Pre-Docked) IVPB 150 mls/hr DAILY@2100 [facility] Administration Magnesium Hydroxide 30 ml 12/14/16 20:09 12/17/16 22:29 Milk Of Magnesia - PO 30 ml PRN PRN Administration CONSTIPATION Metformin HCl 500 mg 12/14/16 22:00 12/17/16 21:30 Glucophage - PO 500 mg HS [facility] Administration Multivitamins/Minerals/Vitamin C 1 tab 12/15/16 10:00 12/18/16 09:56 Tab-A-Vit - PO 1 tab DAILY [facility] Administration Ondansetron HCl 4 mg 12/14/16 20:09 Zofran Injection IVPB Q6H PRN NAUSEA Pantoprazole Sodium 40 mg 12/15/16 10:00 12/18/16 09:56 Protonix - PO 40 mg DAILY [facility] Administration Paroxetine HCl 10 mg 12/15/16 10:00 12/18/16 09:56 Paxil - PO 10 mg DAILY [facility] Administration Senna/Docusate Sodium 1 tablet 12/14/16 22:00 12/18/16 09:57 Pericolace - PO 1 tablet BID [facility] Administration Sitagliptin Phosphate 50 mg 12/14/16 22:00 12/17/16 21:29 Januvia - PO 50 mg HS [facility] Administration Microbiology 12/15/16 15:23 Blood - Peripheral Venous Blood Culture - Preliminary NO GROWTH OBTAINED AFTER 48 HOURS, INCUBATION TO CONTINUE FOR 3 DAYS. 12/15/16 15:21 Blood - Peripheral Venous Blood Culture - Preliminary NO GROWTH OBTAINED AFTER 48 HOURS, INCUBATION TO CONTINUE FOR 3 DAYS. 12/14/16 18:00 Tissue-Other Gram Stain - Final 12/14/16 18:00 Tissue-Other Tissue Culture - Final NO GROWTH OF AEROBIC ORGANISMS AFTER 48 HOURS INCUBATION 12/14/16 18:00 Tissue-Other Anaerobic Culture - Final NO ANAEROBES WERE ISOLATED 12/14/16 18:00 Knee - Left Gram Stain - Final 12/14/16 18:00 Knee - Left Wound Culture - Final NO GROWTH AFTER 48 HOURS INCUBATION 12/14/16 18:00 Knee - Left Gram Stain - Final 12/14/16 18:00 Knee - Left Wound Culture - Final NO GROWTH AFTER 48 HOURS INCUBATION ASSESSMENT/PLAN: 1. Ortho: Infected left TKR, POD #4 s/p washout/poly exchange -All cultures negative -Continue Vanc (5/5 - ) and cefepime (5/5 - ) -PT, WBAT 2. CARDS CAD -Continue Lipitor HTN - continue to hold anti-hypertensives due to low b/p 3. ENDO: NIDDM -Continue Januvia with ISS -Fingersticks ACHS 4. HEME: Normocytic anemia -Hgb 8.0 -Continue iron supplementation -continue to monitor 5. F/E/N -Diabetic diet DISPO: pending picc line today. Visit type - Emergency Visit Emergency Visit: No - New Patient This patient is new to me today: No - Critical Care Critical Care patient: No - Discharge Referral Referred to [facility] No
--- NOTE | 2016-12-18 13:25 | PATH ---
Surgical Pathology Report Patient Name: FELIZ FAIRCHILD Med. Rec. #: [id number] /Age/Gender: 1945 (Age: 71) / M Account: [id number] Location: [facility] Taken: 12/14/2016 Received: 12/14/2016 Reported: 12/18/2016 Physicians: David Viveros M.D. Specimen(s) Received A: EXPLANT OF LEFT KNEE B: DEBRIDEMENT TISSUE LEFT KNEE AND SYNOVIAL LINING OF LEFT KNEE Clinical History Disorder of left knee Final Diagnosis A. ORTHOPEDIC HARDWARE, LEFT KNEE, REMOVAL: ORTHOPEDIC HARDWARE CONSISTENT WITH KNEE PROSTHESIS (GROSS ONLY). B. SOFT TISSUE, LEFT KNEE, DEBRIDEMENT: SYNOVIUM WITH ACUTE INFLAMMATION (GREATER THAN 50 NEUTROPHILS PER HIGH POWER FIELD), ALONG WITH CHRONIC INFLAMMATION, FOREIGN BODY REACTION, AND FIBRINOID NECROSIS. Comment: Recommend correlation with clinical findings and follow up as clinically indicated. Electronically Signed Twin Piper M.D. Gross Description A. Received fresh labeled "explant of left knee," is an 8.8 x 5.8 x 1.7 cm white, plastic device, consistent with a prosthetic tibial plateau. No soft tissue is present. No sections are submitted, gross only. B. Received in formalin labeled "debrided tissue and synovial lining left knee," is an 11.5 x 11.5 x 4.0 cm portion of kramer-yellow soft tissue, consistent with synovial tissue. Sectioning reveals focal blue suture material. Injector Assembler sections are submitted in 5 cassettes. /12/15/2016 saudi12/15/2016
[2016-12-18 13:46] LABS: MAGNESIUM 1.6 mg/dL (1.8-2.4); PHOSPHOROUS 2.8 mg/dl (2.5-4.6)
[2016-12-18] MEDS ORDERED: MAGNESIUM OXIDE 400 MG TABLET (FP) PO ONE (14:36)
[2016-12-18] MEDS: VANCOMYCIN 1 GRAM (PRE-DOCKED) 250 ML IVPB SCH (21:05)
[2016-12-18] MEDS: metFORMIN HCL 500 MG TABLET (FP) PO SCH (21:28)
[2016-12-18] MEDS: sitaGLIPtin PHOSPHATE 50 MG TABLET PO SCH (21:28)
[2016-12-18] MEDS: ATORVASTATIN CA 20 MG TABLET (FP) PO SCH (21:28)
[2016-12-19] MEDS: CEFEPIME 1 GM/100 ML BAG PRE-DOCKED IVPB SCH ×3 (01:47→17:11)
[2016-12-19] MEDS: ASCORBIC ACID 500 MG TABLET (FP) PO SCH ×2 (10:00→21:14)
[2016-12-19] MEDS: PARoxetine HCL 10 MG TABLET (FP) PO SCH (10:39)
[2016-12-19] MEDS: ASPIRIN 325 MG TABLET PO SCH ×2 (10:39→21:14)
[2016-12-19] MEDS: SENNOSIDES/DOCUSATE COMBO (SENNA PLUS) TABLET (UD) PO SCH ×2 (10:39→21:14)
[2016-12-19] MEDS: MULTIVITAMINS (DAILY MVI) TABLET (FP) PO SCH (10:40)
[2016-12-19] MEDS: CELECOXIB 200 MG CAPSULE PO SCH (10:44)
[2016-12-19] MEDS: PANTOPRAZOLE 40 MG TABLET (FP) PO SCH (10:45)
[2016-12-19] MEDS: FERROUS SO4 325 MG TABLET (FP) PO SCH ×2 (10:45→21:14)
--- NOTE | 2016-12-19 12:13 | PN ---
[id number]: 71 year old male with a history of CAD s/p CABG, HLD, HTN, OA, and NIDDM admitted with infected left TKR-->s/p left knee I&D with poly exchange post op day 5 Vital Signs Period Temp Pulse Resp BP Sys/Taylor Pulse Ox Last 24 Hr 97.6 F-99.2 F 72-81 18-19 116-138/55-70 97-100 GENERAL: The patient is awake, alert, and fully oriented, in no acute distress. HEAD: Normal with no signs of trauma. EYES: PERRL, extraocular movements intact, sclera anicteric, conjunctiva clear. No ptosis. ENT: Ears normal, nares patent, oropharynx clear without exudates, moist mucous membranes. NECK: Trachea midline, full range of motion, supple. LUNGS: Breath sounds equal, clear to auscultation bilaterally, no wheezes, no crackles, no accessory muscle use. HEART: Regular rate and rhythm, S1, S2 without murmur, rub or gallop. ABDOMEN: Soft, nontender, nondistended, normoactive bowel sounds, no guarding, no rebound, no hepatosplenomegaly, no masses. EXTREMITIES: 2+ pulses, warm, well-perfused, no edema. LEFT LOWER EXTREMITY: knee immobilizer, less than 3 second capillary refill, +3 pedal pulse NEUROLOGICAL: Cranial nerves II through XII grossly intact. Normal speech, gait not observed. PSYCH: Normal mood, normal affect. SKIN: Warm, dry, normal turgor, no rashes or lesions noted Laboratory Results - last 24 hr 12/18/16 Unknown Phosphorus 2.8 Magnesium 1.6 L Active Medications Generic Name Dose Route Start Last Admin Trade Name Freq PRN Reason Stop Dose Admin Al Hydroxide/Mg Hydroxide 30 ml 12/14/16 20:09 Mylanta Oral Suspension - PO Q4H PRN DYSPEPSIA Ascorbic Acid 500 mg 12/14/16 22:00 12/18/16 21:28 Vitamin C - PO 500 mg BID NEHEMIAS Administration Aspirin 325 mg 12/15/16 18:00 12/19/16 10:39 Asa - PO 325 mg BID NEHEMIAS Administration Atorvastatin Calcium 20 mg 12/14/16 22:00 12/18/16 21:28 Lipitor - PO 20 mg HS NEHEMIAS Administration Cefepime HCl 1 gm 12/15/16 10:30 12/19/16 10:38 Maxipime 1gm Ivpb Pre-Docked IVPB 1 gm Q8H-IV NEHEMIAS Administration Celecoxib 200 mg 12/15/16 10:00 12/19/16 10:44 Celebrex - PO 200 mg DAILY NEHEMIAS Administration Ferrous Sulfate 325 mg 12/14/16 22:00 12/19/16 10:45 Feosol - PO 325 mg BID NEHEMIAS Administration IV Flush 8 ml 12/14/16 20:16 Picc Line Flush IVPUSH PRN PRN Protocol IV Flush 8 ml 12/17/16 11:28 Picc Line Flush IVPUSH PRN PRN Protocol IV Flush 8 ml 12/18/16 09:03 Picc Line Flush IVPUSH PRN PRN Protocol Vancomycin HCl 250 mls @ 150 mls/hr 12/16/16 21:00 12/18/16 21:05 Vancomycin (Pre-Docked) IVPB 150 mls/hr DAILY@2100 NEHEMIAS Administration Magnesium Hydroxide 30 ml 12/14/16 20:09 12/17/16 22:29 Milk Of Magnesia - PO 30 ml PRN PRN Administration CONSTIPATION Metformin HCl 500 mg 12/14/16 22:00 12/18/16 21:28 Glucophage - PO 500 mg HS NEHEMIAS Administration Multivitamins/Minerals/Vitamin C 1 tab 12/15/16 10:00 12/19/16 10:40 Tab-A-Vit - PO 1 tab DAILY NEHEMIAS Administration Ondansetron HCl 4 mg 12/14/16 20:09 Zofran Injection IVPB Q6H PRN NAUSEA Pantoprazole Sodium 40 mg 12/15/16 10:00 12/19/16 10:45 Protonix - PO 40 mg DAILY NEHEMIAS Administration Paroxetine HCl 10 mg 12/15/16 10:00 12/19/16 10:39 Paxil - PO 10 mg DAILY NEHEMIAS Administration Senna/Docusate Sodium 1 tablet 12/14/16 22:00 12/19/16 10:39 Pericolace - PO 1 tablet BID NEHEMIAS Administration Sitagliptin Phosphate 50 mg 12/14/16 22:00 12/18/16 21:28 Januvia - PO 50 mg HS NEHEMIAS Administration Microbiology 12/15/16 15:23 Blood - Peripheral Venous Blood Culture - Preliminary NO GROWTH OBTAINED AFTER 72 HOURS, INCUBATION TO CONTINUE FOR 2 DAYS. 12/15/16 15:21 Blood - Peripheral Venous Blood Culture - Preliminary NO GROWTH OBTAINED AFTER 72 HOURS, INCUBATION TO CONTINUE FOR 2 DAYS. 12/14/16 18:00 Tissue-Other Gram Stain - Final 12/14/16 18:00 Tissue-Other Tissue Culture - Final NO GROWTH OF AEROBIC ORGANISMS AFTER 48 HOURS INCUBATION 12/14/16 18:00 Tissue-Other Anaerobic Culture - Final NO ANAEROBES WERE ISOLATED 12/14/16 18:00 Knee - Left Gram Stain - Final 12/14/16 18:00 Knee - Left Wound Culture - Final NO GROWTH AFTER 48 HOURS INCUBATION 12/14/16 18:00 Knee - Left Gram Stain - Final 12/14/16 18:00 Knee - Left Wound Culture - Final NO GROWTH AFTER 48 HOURS INCUBATION ASSESSMENT/PLAN: 1. Ortho: Infected left TKR, POD #5 s/p washout/poly exchange -All cultures negative -Continue Vanc (5/5 - ) and cefepime (5/5 - ) -PT, WBAT 2. CARDS CAD -Continue Lipitor HTN - restart lopressor, hold loosartan and HCTZ due to elevated creatine. 3. ENDO: NIDDM -Continue Januvia with ISS -Fingersticks ACHS 4. HEME: Normocytic anemia -Hgb 8.0 -Continue iron supplementation -continue to monitor 5. F/E/N -Diabetic diet DISPO: pending picc line today. Visit type - Emergency Visit Emergency Visit: No - New Patient This patient is new to me today: No - Critical Care Critical Care patient: No - Discharge Referral [facility]erred [facility] Med P.C.: No
--- NOTE | 2016-12-19 12:31 | PN ---
Progress Note, Physician History of Present Illness: Ambulatory No c/o knee pain No fever/ chills Tolerating antibiotics Operative cultures no growth - Current Medication List Current Medications: Active Medications Al Hydroxide/Mg Hydroxide (Mylanta Oral Suspension -) 30 ml PO Q4H PRN PRN Reason: DYSPEPSIA Ascorbic Acid (Vitamin C -) 500 mg PO BID [facility] Last Admin: 12/18/16 21:28 Dose: 500 mg Aspirin (Asa -) 325 mg PO BID [facility] Last Admin: 12/19/16 10:39 Dose: 325 mg Atorvastatin Calcium (Lipitor -) 20 mg PO HS [facility] Last Admin: 12/18/16 21:28 Dose: 20 mg Cefepime HCl (Maxipime 1gm Ivpb Pre-Docked) 1 gm IVPB Q8H-IV [facility] Last Admin: 12/19/16 10:38 Dose: 1 gm Celecoxib (Celebrex -) 200 mg PO DAILY [facility] Last Admin: 12/19/16 10:44 Dose: 200 mg Ferrous Sulfate (Feosol -) 325 mg PO BID [facility] Last Admin: 12/19/16 10:45 Dose: 325 mg IV Flush (Picc Line Flush) 8 ml IVPUSH PRN PRN PRN Reason: Protocol IV Flush (Picc Line Flush) 8 ml IVPUSH PRN PRN PRN Reason: Protocol IV Flush (Picc Line Flush) 8 ml IVPUSH PRN PRN PRN Reason: Protocol Vancomycin HCl (Vancomycin (Pre-Docked)) 250 mls @ 150 mls/hr IVPB DAILY@2100 [facility] Last Admin: 12/18/16 21:05 Dose: 150 mls/hr Magnesium Hydroxide (Milk Of Magnesia -) 30 ml PO PRN PRN PRN Reason: CONSTIPATION Last Admin: 12/17/16 22:29 Dose: 30 ml Metformin HCl (Glucophage -) 500 mg PO [facility] Last Admin: 12/18/16 21:28 Dose: 500 mg Multivitamins/Minerals/Vitamin C (Tab-A-Vit -) 1 tab PO DAILY [facility] Last Admin: 12/19/16 10:40 Dose: 1 tab Ondansetron HCl (Zofran Injection) 4 mg IVPB Q6H PRN PRN Reason: NAUSEA Pantoprazole Sodium (Protonix -) 40 mg PO DAILY [facility] Last Admin: 12/19/16 10:45 Dose: 40 mg Paroxetine HCl (Paxil -) 10 mg PO DAILY [facility] Last Admin: 12/19/16 10:39 Dose: 10 mg Senna/Docusate Sodium (Pericolace -) 1 tablet PO BID [facility] Last Admin: 12/19/16 10:39 Dose: 1 tablet Sitagliptin Phosphate (Januvia -) 50 mg PO HS [facility] Last Admin: 12/18/16 21:28 Dose: 50 mg - Objective Vital Signs: Vital Signs Temperature 99.2 F 12/19/16 06:01 Pulse Rate 81 12/19/16 06:01 Respiratory Rate 19 12/19/16 06:01 Blood Pressure 138/70 12/19/16 06:01 O2 Sat by Pulse Oximetry (%) 98 12/19/16 06:01 Constitutional: Yes: No Distress Eyes: Yes: Conjunctiva Clear Cardiovascular: Yes: Regular Rate and Rhythm, S1, S2 Respiratory: Yes: CTA Bilaterally Gastrointestinal: Yes: Normal Bowel Sounds, Soft. No: Tenderness Extremities: Yes: Other (L knee swelling No erythema/ tenderness) Labs: CBC, BMP 12/18/16 07:35 12/18/16 07:35 INR, PTT INR 1.17 (0.82-1.09) 12/18/16 07:35 Assessment/Plan Post op L TKR washout/poly liner replacement Cultures no growth PICC inserted Vancomycin 1gm IVPB q24h x 6 weeks total Asked patient to follow up in office with me in 1-2 weeks
--- NOTE | 2016-12-19 16:51 | PN ---
Progress Note, Physician History of Present Illness: He feels well. Pain is minimal. - Current Medication List Current Medications: Active Medications Al Hydroxide/Mg Hydroxide (Mylanta Oral Suspension -) 30 ml PO Q4H PRN PRN Reason: DYSPEPSIA Ascorbic Acid (Vitamin C -) 500 mg PO BID [facility] Last Admin: 12/18/16 21:28 Dose: 500 mg Aspirin (Asa -) 325 mg PO BID [facility] Last Admin: 12/19/16 10:39 Dose: 325 mg Atorvastatin Calcium (Lipitor -) 20 mg PO HS [facility] Last Admin: 12/18/16 21:28 Dose: 20 mg Cefepime HCl (Maxipime 1gm Ivpb Pre-Docked) 1 gm IVPB Q8H-IV [facility] Last Admin: 12/19/16 10:38 Dose: 1 gm Celecoxib (Celebrex -) 200 mg PO DAILY [facility] Last Admin: 12/19/16 10:44 Dose: 200 mg Ferrous Sulfate (Feosol -) 325 mg PO BID [facility] Last Admin: 12/19/16 10:45 Dose: 325 mg IV Flush (Picc Line Flush) 8 ml IVPUSH PRN PRN PRN Reason: Protocol IV Flush (Picc Line Flush) 8 ml IVPUSH PRN PRN PRN Reason: Protocol IV Flush (Picc Line Flush) 8 ml IVPUSH PRN PRN PRN Reason: Protocol Vancomycin HCl (Vancomycin (Pre-Docked)) 250 mls @ 150 mls/hr IVPB DAILY@2100 [facility] Last Admin: 12/18/16 21:05 Dose: 150 mls/hr Magnesium Hydroxide (Milk Of Magnesia -) 30 ml PO PRN PRN PRN Reason: CONSTIPATION Last Admin: 12/17/16 22:29 Dose: 30 ml Metformin HCl (Glucophage -) 500 mg PO [facility] Last Admin: 12/18/16 21:28 Dose: 500 mg Multivitamins/Minerals/Vitamin C (Tab-A-Vit -) 1 tab PO DAILY [facility] Last Admin: 12/19/16 10:40 Dose: 1 tab Ondansetron HCl (Zofran Injection) 4 mg IVPB Q6H PRN PRN Reason: NAUSEA Pantoprazole Sodium (Protonix -) 40 mg PO DAILY [facility] Last Admin: 12/19/16 10:45 Dose: 40 mg Paroxetine HCl (Paxil -) 10 mg PO DAILY [facility] Last Admin: 12/19/16 10:39 Dose: 10 mg Senna/Docusate Sodium (Pericolace -) 1 tablet PO BID [facility] Last Admin: 12/19/16 10:39 Dose: 1 tablet Sitagliptin Phosphate (Januvia -) 50 mg PO HS [facility] Last Admin: 12/18/16 21:28 Dose: 50 mg - Objective Vital Signs: Vital Signs Temperature 98.8 F 12/19/16 14:09 Pulse Rate 78 12/19/16 14:09 Respiratory Rate 18 12/19/16 14:09 Blood Pressure 117/59 12/19/16 14:09 O2 Sat by Pulse Oximetry (%) 99 12/19/16 14:09 Constitutional: Yes: Well Nourished, No Distress HENT: Yes: Atraumatic, Normocephalic Extremities: Yes: Other (Dressing CDI, No sign of infection. Calf nontender. Neg rios's sign. Compartments soft. NVID.) Labs: CBC, BMP 12/18/16 07:35 12/18/16 07:35 INR, PTT INR 1.17 (0.82-1.09) 12/18/16 07:35 Assessment/Plan #1 s/p infected TKR I&D -ABX per ID -follow up with Dr. Viveros early next week -DVT prophaxis -Pain control
[2016-12-19] MEDS: VANCOMYCIN 1 GRAM (PRE-DOCKED) 250 ML IVPB SCH (20:58)
[2016-12-19] MEDS: ATORVASTATIN CA 20 MG TABLET (FP) PO SCH (21:14)
[2016-12-19] MEDS: metFORMIN HCL 500 MG TABLET (FP) PO SCH (21:14)
[2016-12-19] MEDS: sitaGLIPtin PHOSPHATE 50 MG TABLET PO SCH (21:14)
[2016-12-20] MEDS: CEFEPIME 1 GM/100 ML BAG PRE-DOCKED IVPB SCH ×2 (02:08→10:17)
[2016-12-20 09:22] VITALS: BP 123/55; PULSE 78; TEMP 98.8
[2016-12-20] MEDS: ASPIRIN 325 MG TABLET PO SCH (10:17)
[2016-12-20] MEDS: CELECOXIB 200 MG CAPSULE PO SCH (10:17)
[2016-12-20] MEDS: MULTIVITAMINS (DAILY MVI) TABLET (FP) PO SCH (10:17)
[2016-12-20] MEDS: PANTOPRAZOLE 40 MG TABLET (FP) PO SCH (10:17)
[2016-12-20] MEDS: PARoxetine HCL 10 MG TABLET (FP) PO SCH (10:17)
[2016-12-20] MEDS: SENNOSIDES/DOCUSATE COMBO (SENNA PLUS) TABLET (UD) PO SCH (10:18)
[2016-12-20] MEDS: ASCORBIC ACID 500 MG TABLET (FP) PO SCH (10:18)
== END 2016-12-20 02:40 | disposition home or self-care (01) | DRG 465 ==
LOC: FM/S 14:04
PROVIDERS: ADMIT Orthopaedic Surgery; ATTEND Nurse Practitioner Family
PROC: 0JBP0ZZ Excision of Left Lower Leg Subcutaneous Tissue and Fascia, Open Approach (ICD-10-PCS; 2016-12-14)
PROC: 0SUW09Z Supplement Left Knee Joint, Tibial Surface with Liner, Open Approach (ICD-10-PCS; 2016-12-14)
PROC: 0JDP0ZZ Extraction of Left Lower Leg Subcutaneous Tissue and Fascia, Open Approach (ICD-10-PCS; 2016-12-14)
PROC: 0SPD09Z Removal of Liner from Left Knee Joint, Open Approach (ICD-10-PCS; principal; 2016-12-14 16:00)
PROC: 02HV33Z Insertion of Infusion Device into Superior Vena Cava, Percutaneous Approach (ICD-10-PCS; 2016-12-18)
PROC: B548ZZA Ultrasonography of Superior Vena Cava, Guidance (ICD-10-PCS; 2016-12-18)
DX: T84.54XA Infection and inflammatory reaction due to internal left knee prosthesis, initial encounter (principal); Y83.8 Other surgical procedures as the cause of abnormal reaction of the patient, or of later complication, without mention of misadventure at the time of the procedure; I25.10 Atherosclerotic heart disease of native coronary artery without angina pectoris; Z95.1 Presence of aortocoronary bypass graft; I10 Essential (primary) hypertension; E78.5 Hyperlipidemia, unspecified; E11.9 Type 2 diabetes mellitus without complications; D64.89 Other specified anemias
CPT/HCPCS: 36415; 36569; 73560-TC-LT; 77001-TC; 80048; 83735; 84100; 85025; 85027; 85610; 85651; 86140; 87040; 87070; 87075; 87205; 88300-TC; 88304-TC; 89051; 89060; 94010; 94760; 97116-GP; 97162-PG; C1751; G0480

== ENCOUNTER 2016-12-24 19:39 | Emergency (ER) | payer OTHER, BC ==
[2016-12-24 19:50] VITALS: TEMP 98.1; BMI 29.9
[2016-12-24] MEDS ORDERED: VANCOMYCIN 1,000 MG in DEXTROSE 5%-WATER - 250 ML IVPB ONE (19:57)
[2016-12-24] MEDS ORDERED: VANCOMYCIN 1 GRAM (PRE-DOCKED) 250 ML IVPB ONE (20:07)
[2016-12-24 20:40] VITALS: BP 136/71; PULSE 64
--- NOTE | 2016-12-24 20:53 | PDOC ---
History of Present Illness - General Chief Complaint: Allergic Reaction Stated Complaint: ALLERGIC REACTION Time Seen by Provider: 12/24/16 19:46 History Source: Patient Exam Limitations: No Limitations - History of Present Illness Initial Comments: 12/24/16 20:52 Patient is a 71-year-old male with history of HTN, anxiety, diabetes, with recent surgery to the left knee now infected with a wash out of knee 1 week ago , on vancomycin here with complaints of feeling flushed at the initiation of infusion of Vancomycin. States he has been on Vancomycin x 1 week and usually does the infusion in the same manner and has never had a problem. States that he started to have flushing symptoms from his waist up after flushing his line with saline and then at the onset of infusion 10 minutes of the vancomycin. He immediately stopped the infusion called his PMD and was told to come to the emergency room to be evaluated. Patient states that he feels fine. Flushing symptoms lasted for a few minutes. He has no shortness of breath. However while he was having infusion he had a little pinch in his chest and was concerned that the PICC line had moved. PMD: Dr. Case PMHX: as above PSOCHX: neg cig, etoh, durg ALL: NKDA GENERAL/CONSTITUTIONAL: [No fever or chills. No weakness. No weight change.] HEAD, EYES, EARS, NOSE AND THROAT: [No change in vision. No ear pain or discharge. No sore throat.] CARDIOVASCULAR: [No chest pain or shortness of breath.] RESPIRATORY: [No cough, wheezing, or hemoptysis.] GASTROINTESTINAL: [No nausea, vomiting, diarrhea or constipation. No rectal bleeding.] GENITOURINARY: [No dysuria, frequency, or change in urination.] MUSCULOSKELETAL: (+) joint or muscle swelling or pain. No neck or back pain.] SKIN AND BREASTS: [No rash or easy bruising.] NEUROLOGIC: [No headache, vertigo, loss of consciousness, or loss of sensation.] PSYCHIATRIC: (-) depression,(+) anxiety.] ENDOCRINE: [No increased thirst. No abnormal weight change.] HEMATOLOGIC/LYMPHATIC: [No anemia, easy bleeding, or history of blood clots.] ALLERGIC/IMMUNOLOGIC: [No hives or skin allergy. No latex allergy.] GENERAL: [The patient is awake, alert, and fully oriented, in no acute distress. ] HEAD: [Normal with no signs of trauma.] EYES: [Pupils equal, round and reactive to light, extraocular movements intact, sclera anicteric, conjunctiva clear.] ENT: [Ears normal, nares patent, oropharynx clear without exudates. Moist mucous membranes.] NECK: [Normal range of motion, supple without lymphadenopathy, JVD, or masses.] LUNGS: [Breath sounds equal, clear to auscultation bilaterally. No wheezes, and no crackles.] HEART: [Regular rate and rhythm, normal S1 and S2 without murmur, rub.] ABDOMEN: [Soft, nontender, normoactive bowel sounds. No guarding, no rebound. No masses.] EXTREMITIES: decreased range of motion to the left knee, dressing intact, immobilized, mild edema, No clubbing or cyanosis. No cords, erythema, or tenderness.] NEUROLOGICAL: [Cranial nerves II through XII grossly intact. Normal speech, normal gait.] PSYCH: [Normal mood, normal affect.] SKIN: [Warm, Dry, normal turgor, no rashes or lesions noted.] Past History - Past Medical History Allergies/Adverse Reactions: Allergies Allergy/AdvReac Type Severity Reaction Status Date / Time shellfish derived Allergy Severe Vomiting Verified 12/24/16 19:47 Fish Containing Products AdvReac Mild Nausea Verified 12/24/16 19:47 No Known Drug Allergies AdvReac Unknown Verified 12/24/16 19:47 SEAFOOD AdvReac Severe Vomiting Uncoded 12/24/16 19:47 FISH AdvReac Mild Nausea Uncoded 12/24/16 19:47 Home Medications: Ambulatory Orders Losartan/Hydrochlorothiazide [Losartan-Hctz 100-25 mg Tab] 25 - 100 mg PO DAILY 10/12/15 Metoprolol Tartrate [Lopressor -] 50 mg PO BID 10/12/15 Simvastatin 40 mg PO HS 10/12/15 Sitagliptin Phos/Metformin HCl [Janumet 50-500 mg Tablet] 50 - 500 mg PO HS 08/28 Paroxetine HCl [Paxil -] 10 mg PO DAILY 12/13/15 Aspirin [ASA -] 81 mg PO HS 12/14/16 Picc Line Flush [Picc Line Flush -] 8 ml IVPUSH PRN PRN #0 ml 12/20/16 Vancomycin 1 Gram (Pre-Docked) [Vancomycin (Pre-Docked)] 250 ml IVPB DAILY@2100 #0 bag 12/20/16 Anemia: No Asthma: No 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) Cardiac Disorders: Yes (M.I.-12/2006-CAD,CABG X5 2006) CVA: No COPD: No CHF: No Dementia: No Diabetes: Yes (DX 04/2005) GI Disorders: Yes (BELCHING FREQUENTLY, BILATERAL ING HERNIA 1969.1979) Disorders: Yes (BPH) HTN: No Hypercholesterolemia: No Liver Disease: No Seizures: No Thyroid Disease: No - Surgical History Abdominal Surgery: Yes (OBDULIA INGUINAL HERNIA REPAIR) Appendectomy: No Cardiac Surgery: Yes (CABG X5 -12/2006) Cholecystectomy: No Lung Surgery: No Neurologic Surgery: No Orthopedic Surgery: Yes (RIGHT KNEE OPEN REPAIR-1962) - Psycho/Social/Smoking Cessation Hx Suicidal Ideation: No Smoking History: Former smoker Have you smoked in the past 12 months: No Number of Cigarettes Smoked Daily: 20 If you are a former smoker, when did you quit?: 1977 Information on smoking cessation initiated: No Hx Alcohol Use: No Drug/Substance Use Hx: No Substance Use Type: Alcohol Hx Substance Use Treatment: No *Physical Exam - Vital Signs Last Vital Signs Temp Pulse Resp BP Pulse Ox 98.1 F 64 17 136/71 100 12/24/16 19:47 12/24/16 20:24 12/24/16 20:24 12/24/16 20:24 12/24/16 20:24 Medical Decision Making - Medical Decision Making 12/24/16 21:33 Patient is a 71-year-old male with history of anxiety, diabetes, with recent surgery to the left knee now infected with a wash out of knee 1 week ago, on vancomycin here with complaints of feeling flushed at the initiation of infusion of Vancomycin. Chest x-ray, EKG. Will give 1 g vancomycin in the ER to check for ALLERGIC reactions. When stable will discharge patient home. EKG SR rate 65, LAD, 1st degree AVB, with PVC's cxr PIC line in good position Patient received infusion without any complications, no further flushing Selected Entries 12/24/16 20:24 Pulse Rate [ 64 Left] Respiratory 17 Rate Blood Pressure 136/71 [Left] O2 Sat by Pulse 100 Oximetry (%) I discussed the physical exam findings, ancillary test results and final diagnoses with the patient. I answered all of the patient's questions. The patient was satisfied with the care received and felt comfortable with the discharge plan and treatment plan. The Patient agrees to follow up with the primary care physician within 24-72 hours. *DC/Admit/Observation/Transfer Diagnosis at time of Disposition: Skin flushed - Discharge Dispostion Disposition: HOME Condition at time of disposition: Stable - Referrals Referrals: Ge Viveros MD [Primary Care Provider] - - Patient Instructions Additional Instructions: Your Discharge Instructions: You must call primary care physician within 24 hours to arrange follow-up. Return to the Emergency Department with any new, persistent or worsening symptoms, for fever, chills, SOB, dizziness or any other concerning changes that may occur.
--- NOTE | 2016-12-25 10:30 | EKG ---
Test Reason : Blood Pressure : / mmHG Vent. Rate : 065 BPM Atrial Rate : 065 BPM P-R Int : 238 ms QRS Dur : 114 ms QT Int : 426 ms P-R-T Axes : 050 -41 088 degrees QTc Int : 443 ms SINUS RHYTHM WITH MARKED SINUS ARRHYTHMIA WITH 1ST DEGREE A-V BLOCK WITH OCCASIONAL PREMATURE VENTRICULAR COMPLEXES LEFT AXIS DEVIATION INCOMPLETE LEFT BUNDLE BRANCH BLOCK LEFT VENTRICULAR HYPERTROPHY WITH REPOLARIZATION ABNORMALITY ABNORMAL ECG NO PREVIOUS ECGS AVAILABLE Confirmed by TIFFANI MORROW, KADY ([id number]) on 12/25/2016 10:29:51 AM Referred By: Confirmed By:KADY NIXON MD
== END 2016-12-24 23:33 | disposition home or self-care (01) ==
LOC: JER 19:39
DX: R23.2 Flushing (principal); I25.10 Atherosclerotic heart disease of native coronary artery without angina pectoris; I10 Essential (primary) hypertension; Z95.1 Presence of aortocoronary bypass graft; F41.9 Anxiety disorder, unspecified; E11.9 Type 2 diabetes mellitus without complications; Z79.84 Long term (current) use of oral hypoglycemic drugs; N40.0 Benign prostatic hyperplasia without lower urinary tract symptoms; Z98.890 Other specified postprocedural states
CPT/HCPCS: 71010-TC; 93005; 93010; 96365; 99282-25

== ENCOUNTER 2016-12-26 18:53 | Emergency (ER) | payer OTHER, BC ==
[2016-12-26 19:04] VITALS: TEMP 97.7; BMI 30.2
[2016-12-26 19:53] LABS: BASOPHIL 0.6 % (0-2.0); EOSINOPHIL 0.7 % (0-4.5); MCH 25.3 pg (25.7-33.7); MEAN CELL VOLUME 78.9 fl (80-96); MEAN PLT VOLUME 7.3 fl (7.5-11.1); NEUTROPHILS 72.2 % (42.8-82.8); PLATELET COUNT 373 K/MM3 (134-434); RDW 15.1 % (11.9-15.9); WHITE BLOOD COUNT 9.6 K/mm3 (4.0-10.0)
[2016-12-26 20:26] LABS: INR 1.15 (0.82-1.09); PROTHROMBIN TIME (PATIENT) 12.7 SEC (9.98-11.88)
[2016-12-26 20:51] LABS: ALBUMIN 3.1 g/dl (3.4-5.0); BILIRUBIN,TOTAL 0.5 mg/dL (0.2-1.0); CALCIUM 9.1 mg/dL (8.5-10.1); COCKROFT - GAULT 85.12; CREATININE 1.2 mg/dL (0.7-1.3); TOT PROT 7.6 g/dl (6.4-8.2)
[2016-12-26 20:52] LABS: TROPONIN I < 0.02 ng/ml (0.00-0.05)
--- NOTE | 2016-12-26 21:16 | PDOC ---
[id number] 71 year old male with significant medical hx of BPH, CAD s/p PA ( 2006), s/p CABG x 5 (2006), DM, multiple left knee surgeries with infection, and currently receiving infusions of vancomycin via picc line for recent knee infection, who is presenting to the ED for irregular heartbeat and feeling flushed 3 hours [employer]. The patient recently had an infected left knee replacement that was surgically debrided on 12/14/16. Since then he had one visit to the ED for feeling flushed after receiving an infusion of vancomycin on 12/24. The patient states tonight he was sitting down when he began feeling acid reflux and when he tried to lay down, he began feeling flushed throughout his whole body. The patient felt his pulse which he noticed was irregular. The patient notes that he had similar symptoms during his last PA in 2006. Denies any chest pain, shortness of breath, dizziness, lightheadedness, fever, chills, nausea, abdominal pain, or vomiting. Patient denies any hx of AFib. Patient recently had left knee surgery 12/14 and has been wearing a leg brace since. Surgical Hx: Bypass, left knee sx (12/14/2016), two hernia repairs, multiple left knee surgeries, CABG x 5 Orthopedist: Ge Viveros MD PMD: Antonio Case MD Allergies: seafood Social Hx: Former smoker, quit in 1977. Occasional alcohol use. 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) Cardiac Disorders: Yes (M.I.-12/2006-CAD,CABG X5 2006) CVA: No COPD: No CHF: No Dementia: No Diabetes: Yes (DX 04/2005) GI Disorders: Yes (BELCHING FREQUENTLY, BILATERAL ING HERNIA 1969.1979) Disorders: Yes (BPH) HTN: No Hypercholesterolemia: No Liver Disease: No Seizures: No Thyroid Disease: No - Surgical History Abdominal Surgery: Yes (OBDULIA INGUINAL HERNIA REPAIR) Appendectomy: No Cardiac Surgery: Yes (CABG X5 -12/2006) Cholecystectomy: No Lung Surgery: No Neurologic Surgery: No Orthopedic Surgery: Yes (RIGHT KNEE OPEN REPAIR-1962) - Psycho/Social/Smoking Cessation Hx Anxiety: No Suicidal Ideation: No Smoking History: Former smoker Have you smoked in the past 12 months: No Number of Cigarettes Smoked Daily: 20 If you are a former smoker, when did you quit?: 1977 Information on smoking cessation initiated: No Hx Alcohol Use: No Drug/Substance Use Hx: No Substance Use Type: Alcohol Hx Substance Use Treatment: No <Melissa Alvarez - Last Filed: 12/27/16 03:15> - Past Medical History Allergies/Adverse Reactions: Allergies Allergy/AdvReac Type Severity Reaction Status Date / Time shellfish derived Allergy Severe Vomiting Verified 12/26/16 19:02 Fish Containing Products AdvReac Mild Nausea Verified 12/26/16 19:02 No Known Drug Allergies AdvReac Unknown Verified 12/26/16 19:02 SEAFOOD AdvReac Severe Vomiting Uncoded 12/26/16 19:02 FISH AdvReac Mild Nausea Uncoded 12/26/16 19:02 Home Medications: Ambulatory Orders Losartan/Hydrochlorothiazide [Losartan-Hctz 100-25 mg Tab] 25 - 100 mg PO DAILY 10/12/15 Metoprolol Tartrate [Lopressor -] 50 mg PO BID 10/12/15 Simvastatin 40 mg PO HS 10/12/15 Sitagliptin Phos/Metformin HCl [Janumet 50-500 mg Tablet] 50 - 500 mg PO HS 08/28 Paroxetine HCl [Paxil -] 10 mg PO DAILY 12/13/15 Aspirin [ASA -] 81 mg PO HS 12/14/16 Picc Line Flush [Picc Line Flush -] 8 ml IVPUSH PRN PRN #0 ml 12/20/16 Vancomycin 1 Gram (Pre-Docked) [Vancomycin (Pre-Docked)] 250 ml IVPB DAILY@2100 #0 bag 12/20/16 Review of Systems - Review of Systems Comments:: 12/26/16 21:30 CONSTITUTIONAL: Present: feeling flushed Absent: fever, chills, diaphoresis, generalized weakness, malaise, loss of appetite HEENT: Absent: rhinorrhea, nasal congestion, throat pain, throat swelling, difficulty swallowing, mouth swelling, ear pain, eye pain, visual changes CARDIOVASCULAR: Present: irregular heart rate Absent: chest pain, syncope, palpitations, lightheadedness, peripheral edema RESPIRATORY: Absent: cough, shortness of breath, dyspnea with exertion, orthopnea, wheezing, stridor, hemoptysis GASTROINTESTINAL: Absent: abdominal pain, abdominal distension, nausea, vomiting, diarrhea, constipation, melena, hematochezia GENITOURINARY: Absent: dysuria, frequency, urgency, hesitancy, hematuria, flank pain, genital pain MUSCULOSKELETAL: Absent: myalgia, arthralgia, joint swelling SKIN: Absent: rash, itching, pallor HEMATOLOGIC/IMMUNOLOGIC: Absent: easy bleeding, easy bruising, lymphadenopathy, frequent infections ENDOCRINE: Absent: unexplained weight gain, unexplained weight loss, heat intolerance, cold intolerance NEUROLOGIC: Absent: headache, focal weakness or paresthesia, dizziness, unsteady gait, seizure, mental status changes, bladder or bowel incontinence. PSYCHIATRIC: Absent: anxiety, depression, suicidal or homicidal ideation, hallucinations <Susan Rene - Last Filed: 12/27/16 00:03> *Physical Exam - Vital Signs Last Vital Signs Temp Pulse Resp BP Pulse Ox 97.7 F 88 20 107/62 100 12/26/16 19:02 12/26/16 20:53 12/26/16 19:02 12/26/16 20:53 12/26/16 19:02 - Physical Exam Comments: 12/26/16 21:31 GENERAL: Well developed, well nourished. Awake and alert. No acute distress. HEENT: Normocephalic, atraumatic. PERRLA, EOMI. No conjunctival pallor. Sclera are non- icteric. Moist mucous membranes. Oropharynx is clear. NECK: Supple. Full ROM. No JVD. Carotid pulses 2+ and symmetric, without bruits. No thyromegaly. No lymphadenopathy. CARDIOVASCULAR: Regular irregular rhythm. No murmurs, rubs, or gallops. Distal pulses are 2+ and symmetric. PULMONARY: No evidence of respiratory distress. Lungs clear to auscultation bilaterally. No wheezing, rales or rhonchi. ABDOMINAL: Obese. Soft. Non-tender. Non-distended. No rebound or guarding. No organomegaly. Normoactive bowel sounds. MUSCULOSKELETAL: Normal range of motion at all joints. No bony deformities or tenderness. No CVA tenderness. EXTREMITIES: No cyanosis. No clubbing. No edema. No calf tenderness. SKIN: Warm and dry. Normal capillary refill. No rashes. No jaundice. NEUROLOGICAL: Alert, awake, appropriate. Cranial nerves 2-12 intact. Normal speech. PSYCHIATRIC: Cooperative. Good eye contact. Appropriate mood and affect. <Susan Rene - Last Filed: 12/27/16 00:03> - Vital Signs Last Vital Signs Temp Pulse Resp BP Pulse Ox 97.7 F 88 20 107/62 100 12/26/16 19:02 12/26/16 20:53 12/26/16 19:02 12/26/16 20:53 12/26/16 19:02 <Melissa Alvarez - Last Filed: 12/27/16 03:15> Heart Score/ECG Review #1 12/27/16 00:03 Poor data quality, interpretation may be adversely affected Sinus rhythm with frequent premature ventricular complexes and premature atrial complexes Left axis deviation Pulmonary disease pattern Left ventricular hypertrophy with QRS widening and repolarization abnormality Abnormal ECG <Susan Rene - Last Filed: 12/27/16 00:03> ED Treatment Course - LABORATORY CBC & Chemistry Diagram: 12/26/16 19:00 12/26/16 19:00 - ADDITIONAL ORDERS Additional order review: Laboratory Results 12/26/16 12/26/16 12/26/16 19:00 19:00 19:00 INR 1.15 H Sodium 138 Potassium 3.9 Chloride 101 Carbon Dioxide 23 Anion Gap 14 BUN 28 H Creatinine 1.2 Creat Clearance w eGFR 59.68 Random Glucose 115 H Calcium 9.1 Total Bilirubin 0.5 AST 18 ALT 30 Alkaline Phosphatase 75 Creatine Kinase 59 Troponin I < 0.02 Total Protein 7.6 Albumin 3.1 L 12/26/16 19:00 RBC 3.35 L MCV 78.9 L MCHC 32.0 RDW 15.1 MPV 7.3 L Neutrophils % 72.2 Lymphocytes % 19.4 Monocytes % 7.1 Eosinophils % 0.7 Basophils % 0.6 - RADIOLOGY Radiograph Interpretation: 12/26/16 21:38 Chest X-Ray Impression: No acute disease. Reported By: Orlando Melvin MD <Susan Rene - Last Filed: 12/27/16 00:03> - LABORATORY CBC & Chemistry Diagram: 12/26/16 19:00 12/26/16 19:00 - ADDITIONAL ORDERS Additional order review: Laboratory Results 12/26/16 12/26/16 12/26/16 19:00 19:00 19:00 INR 1.15 H Sodium 138 Potassium 3.9 Chloride 101 Carbon Dioxide 23 Anion Gap 14 BUN 28 H Creatinine 1.2 Creat Clearance w eGFR 59.68 Random Glucose 115 H Calcium 9.1 Total Bilirubin 0.5 AST 18 ALT 30 Alkaline Phosphatase 75 Creatine Kinase 59 Troponin I < 0.02 Total Protein 7.6 Albumin 3.1 L 12/26/16 19:00 RBC 3.35 L MCV 78.9 L MCHC 32.0 RDW 15.1 MPV 7.3 L Neutrophils % 72.2 Lymphocytes % 19.4 Monocytes % 7.1 Eosinophils % 0.7 Basophils % 0.6 - RADIOLOGY Radiology Studies Ordered: Category Date Time Status CHEST X-RAY PORTABLE* [RAD] Stat Radiology 12/26/16 19:30 Completed <Melissa Alvarez - Last Filed: 12/27/16 03:15> Medical Decision Making - Medical Decision Making 12/27/16 03:05 71-year-old male brought in by ambulance from home after having an episode of flushing and palpitations. He was concerned because he has something similar to this in 2006 when he had a myocardial infarction. He does not have any chest pain, no shortness of breath, no fever, no chills, no vomiting, no cough, no back pain, no dizziness He currently has a PICC line and is receiving vancomycin for a left knee infection. He is followed by Dr. Wang at this hospital Patient has had multiple left knee replacements and the last surgery this year became infected. EKG did not show any significant change from his prior EKG. He was kept for observation until 2 sets of cardiac enzymes could be obtained. Both sets of cardiac enzymes were negative CBC revealed an anemia that is evident in prior blood work going back one year ago. However the pt stated this was news to him. i gave them the blood counts for the past year He has hemoglobin between 8 and 11. Today, his hemoglobin was only 8 and his hematocrit was 26. He denied any black tarry stools today pt will followup with DrApuzzo while pt was in the ER he received his 1 gram of vancomycin -pt has an appt this week with his infectious disease specialist <Melissa Alvarez - Last Filed: 12/27/16 03:15> *DC/Admit/Observation/Transfer - Attestations Scribe Attestion: 12/26/16 21:32 Documentation prepared by Susan Rene, acting as medical doctor md/medical director for Melissa Alvarez MD. <Susan Rene - Last Filed: 12/27/16 00:03> <Melissa Alvarez - Last Filed: 12/27/16 03:15> Diagnosis at time of Disposition: Palpitations, Skin flushed - Discharge Dispostion Disposition: HOME Condition at time of disposition: Stable - Referrals Referrals: Antonio Case MD [Primary Care Provider] - - Patient Instructions Printed Discharge Instructions: DI for Iron Deficiency Anemia-Adult, DI for Palpitations Additional Instructions: please continue with your antibiotics please see your doctor for further evaluation of your anemia
[2016-12-26] MEDS ORDERED: VANCOMYCIN 1 GRAM (PRE-DOCKED) 250 ML IVPB ONE ×2 (22:43→22:45)
[2016-12-26] MEDS ORDERED: VANCOMYCIN 1,000 MG in DEXTROSE 5%-WATER - 250 ML IVPB ONE (22:55)
[2016-12-27 01:42] LABS: TROPONIN I < 0.02 ng/ml (0.00-0.05)
[2016-12-27 02:44] VITALS: BP 120/63; PULSE 71
--- NOTE | 2016-12-28 11:36 | EKG ---
Test Reason : Blood Pressure : / mmHG Vent. Rate : 082 BPM Atrial Rate : 082 BPM P-R Int : 206 ms QRS Dur : 116 ms QT Int : 402 ms P-R-T Axes : 104 -41 098 degrees QTc Int : 469 ms POOR DATA QUALITY, INTERPRETATION MAY BE ADVERSELY AFFECTED SINUS RHYTHM WITH FREQUENT PREMATURE VENTRICULAR COMPLEXES AND PREMATURE ATRIAL COMPLEXES LEFT AXIS DEVIATION PULMONARY DISEASE PATTERN LEFT VENTRICULAR HYPERTROPHY WITH QRS WIDENING AND REPOLARIZATION ABNORMALITY ABNORMAL ECG WHEN COMPARED WITH ECG OF 24-DEC-2016 20:11, PREMATURE ATRIAL COMPLEXES ARE NOW PRESENT [place] INTERVAL HAS DECREASED INCOMPLETE LEFT BUNDLE BRANCH BLOCK IS NO LONGER PRESENT Confirmed by ELIZA SAWYER MD ([id number]) on 12/28/2016 11:36:25 AM Referred By: Confirmed By:ELIZA SAWYER MD
== END 2016-12-27 02:46 | disposition home or self-care (01) ==
LOC: JER 18:53
DX: R00.2 Palpitations (principal); R23.9 Unspecified skin changes; I25.10 Atherosclerotic heart disease of native coronary artery without angina pectoris; I25.2 Old myocardial infarction; Z95.1 Presence of aortocoronary bypass graft; E11.9 Type 2 diabetes mellitus without complications; Z85.820 Personal history of malignant melanoma of skin; Z87.891 Personal history of nicotine dependence
CPT/HCPCS: 36415; 71010-TC; 80053; 82550; 84484; 85025; 85610; 93005; 93010; 96365; 99285-25

== ENCOUNTER 2017-01-20 13:17 | Inpatient (IN) | payer OTHER, BC ==
--- NOTE | 2017-01-20 14:06 | PDOC ---
History of Present Illness - General History Source: Patient Exam Limitations: No Limitations - History of Present Illness Initial Comments: 01/20/17 14:41 The patient is a 71 year old male, with a significant past medical history of diabetes, hyperlipidemia, hypertension, and multiple left knee surgeries with infectious, and currently receiving infusions of vancomycin via picc line for recent left knee infection, who presents to the emergency department with right knee pain and swelling since yesterday. The patient reports that last year on October 19 he had a left knee replacement and at the end of November as he was getting out of his car he fell to the ground with a torn quadricep. In December he had a quadricep repair. He then recalls that his left knee became very swollen and he went to see his Orthopedist Dr. Viveros who then determined this left knee replacement was infected. The left knee was surgically debrided on 12/14/2016 and has been on vancomycin since. The patient presents to the ED today with complaints of right knee pain and swelling. He reports that he cannot put pressure on the right leg or ambulate. He denies any other joint swelling or pain. He denies any recent injuries or recent trauma. He denies chest pain, shortness of breath, headache and dizziness. He denies fever, chills, nausea, and vomit. PMH: BPH, CAD s/p MT (2006), s/p CABG x5 (2006), Allergies: Shellfish Past surgical history: Bypass, left knee surgery (12/14/2016), 2 hernia repairs , multiple left knee surgeries, CABG x5 Social history: Former smoker (quit in 1977), occasional alcohol use PCP: Dr. Antonio Case Orthopedist: Dr. 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) Cardiac Disorders: Yes (M.I.-12/2006-CAD,CABG X5 2006) CVA: No COPD: No CHF: No Dementia: No Diabetes: Yes (DX 04/2005) GI Disorders: Yes (BELCHING FREQUENTLY, BILATERAL ING HERNIA 1969.1979) Disorders: Yes (BPH) HTN: Yes Hypercholesterolemia: No Liver Disease: No Seizures: No Thyroid Disease: No - Surgical History Abdominal Surgery: Yes (OBDULIA INGUINAL HERNIA REPAIR) Appendectomy: No Cardiac Surgery: Yes (CABG X5 -12/2006) Cholecystectomy: No Lung Surgery: No Neurologic Surgery: No Orthopedic Surgery: Yes (RIGHT KNEE OPEN REPAIR-1962) - Psycho/Social/Smoking Cessation Hx Anxiety: No Suicidal Ideation: No Smoking History: Former smoker Have you smoked in the past 12 months: No Number of Cigarettes Smoked Daily: 20 If you are a former smoker, when did you quit?: 1977 Information on smoking cessation initiated: No Hx Alcohol Use: No Drug/Substance Use Hx: No Substance Use Type: Alcohol Hx Substance Use Treatment: No <Todd Walters - Last Filed: 01/20/17 19:02> - Past Medical History Allergies/Adverse Reactions: Allergies Allergy/AdvReac Type Severity Reaction Status Date / Time shellfish derived Allergy Severe Vomiting Verified 01/20/17 13:19 Fish Containing Products AdvReac Mild Nausea Verified 01/20/17 13:19 No Known Drug Allergies AdvReac Unknown Verified 01/20/17 13:19 SEAFOOD AdvReac Severe Vomiting Uncoded 01/20/17 13:19 FISH AdvReac Mild Nausea Uncoded 01/20/17 13:19 Home Medications: Ambulatory Orders Losartan/Hydrochlorothiazide [Losartan-Hctz 100-25 mg Tab] 25 - 100 mg PO DAILY 10/12/15 Metoprolol Tartrate [Lopressor -] 50 mg PO BID 10/12/15 Simvastatin 40 mg PO HS 10/12/15 Sitagliptin Phos/Metformin HCl [Janumet 50-500 mg Tablet] 50 - 500 mg PO HS 08/28 Paroxetine HCl [Paxil -] 10 mg PO DAILY 12/13/15 Aspirin [ASA -] 81 mg PO HS 12/14/16 Picc Line Flush [Picc Line Flush -] 8 ml IVPUSH PRN PRN #0 ml 12/20/16 Vancomycin 1 Gram (Pre-Docked) [Vancomycin (Pre-Docked)] 250 ml IVPB DAILY@2100 #0 bag 12/20/16 Docusate Sodium [Colace -] 100 mg PO BID 01/20/17 Review of Systems - Review of Systems Able to Perform ROS?: Yes Comments:: 01/20/17 14:42 CONSTITUTIONAL: Absent: Fever, Chills, Diaphoresis, Generalized Weakness, Malaise, Loss of Appetite HEENT: Absent: Rhinorrhea, Nasal Congestion, Throat Pain, Throat Swelling, Difficulty Swallowing, Mouth Swelling, Ear Pain, Eye Pain, Visual Changes CARDIOVASCULAR: Absent: Chest Pain, Syncope, Palpitations, Irregular Heart Rate, Lightheadedness , Peripheral Edema RESPIRATORY: Absent: Cough, Shortness of Breath, SOB with Exertion, Orthopnea, Wheezing, Stridor, Hemoptysis GASTROINTESTINAL: Absent: Abdominal pain, Abdominal Distension, Nausea, Vomiting, Diarrhea, Constipation, Melena, Hematochezia GENITOURINARY: Absent: Dysuria, Frequency, Urgency, Hesitancy, Flank Pain, Genital Pain MUSCULOSKELETAL: +Right knee pain and swelling Absent: Back pain, Neck Pain SKIN: Absent: Rash, Itching, PalloR HEMEATOLOGIC/IMMUNOLOGIC: Absent: Easy Bleeding, Easy Bruising, Lymphadenopathy, Frequent infections ENDOCRINE: Absent: Unexplained Weight Gain, Unexplained Weight Loss, Heat Intolerance, Cold Intolerance NEUROLOGIC: Absent: Headache, Focal Weakness, Paresthesias, Vertigo, Lightheadedness, Unsteady Gait, Seizure, Mental Status Changes, Incontinence PSYCHIATRIC: Absent: Anxiety, Depression <Maile Cannon - Last Filed: 01/20/17 18:16> *Physical Exam - Vital Signs Last Vital Signs Temp Pulse Resp BP Pulse Ox 98.1 F 96 H 18 148/73 97 01/20/17 13:20 01/20/17 13:20 01/20/17 13:20 01/20/17 13:20 01/20/17 13:20 - Physical Exam Comments: 01/20/17 14:42 GENERAL: The patient is awake, alert, and fully oriented, in no acute distress. HEAD: Normal with no signs of trauma. EYES: Pupils equal, round and reactive to light, extraocular movements intact, sclera anicteric, conjunctiva clear. ENT: Ears normal, nares patent, oropharynx clear without exudates. Moist mucous membranes. NECK: Normal range of motion, supple without lymphadenopathy, JVD, or masses. LUNGS: Breath sounds equal, clear to auscultation bilaterally. No wheezes, and no crackles. HEART: + 2/6 systolic murmur at the right upper sternal border without radiation Regular rate and rhythm with frequent premature beats.No murmur, rub or gallop. ABDOMEN: Soft, nontender, normoactive bowel sounds. No guarding, no rebound. No masses. EXTREMITIES: +Right knee has a very large effusion, somewhat tense with decreased range of motion. He is able to range from 145 degrees to 170 degrees. +Right upper extremity picc line site is clean, dry, and intact with no erythema. Left knee is healing well, no signs of inflammation, no warmth, no redness, no swelling. No clubbing or cyanosis. NEUROLOGICAL: Cranial nerves II through XII grossly intact. Normal speech, normal gait. PSYCH: Normal mood, normal affect. SKIN: Warm, Dry, normal turgor, no rashes or lesions noted. <Maile Cannon - Last Filed: 01/20/17 18:16> - Vital Signs Last Vital Signs Temp Pulse Resp BP Pulse Ox 98.1 F 96 H 18 148/73 97 01/20/17 13:20 01/20/17 13:20 01/20/17 13:20 01/20/17 13:20 01/20/17 13:20 <Todd Walters - Last Filed: 01/20/17 19:02> Procedures - Arthrocentesis Indication: Inflammation Arthrocentesis Site: right: knee Flexion: 20-30 degree (procedure easy and uneventful, stable) Betadine Prep: (chlorhexidine prep) Sterile Dressing Applied: Yes Fluid Color: Straw colored Fluid Amount mL: 15 Anesthesia: 1% Lidocaine Needle Size (guage): 18g Complications: No <Todd Walters - Last Filed: 01/20/17 19:02> Heart Score/ECG Review - ECG Impressions Comment:: 01/20/17 18:44 EKG shows normal sinus rhythm with frequent PACs and PVCs. The rate is 98 bpm. The axis is leftward. There is LVH with QRS widening and repolarization abnormality. There are nonspecific lateral ST depressions with T-wave inversions. Old EKG is pending. 01/20/17 18:47 Prior EKG from 12/26/2016 was reviewed. There are no significant changes. The QRS widening and lateral T-wave inversions are old, unchanged. <Todd Walters - Last Filed: 01/20/17 19:02> ED Treatment Course - LABORATORY CBC & Chemistry Diagram: 01/20/17 14:42 01/20/17 14:42 - RADIOLOGY Radiograph Interpretation: 01/20/17 15:05 RAD/KNEE 2 POS - RIGHT Reported by: Dr. Dru Manzanares Reviewed by: Dr. Todd Walters Impression: Large joint effusion. Degernative changes. Lucencies in proximal tibia and fibula that need to be further evaluated. <Maile Cannon - Last Filed: 01/20/17 18:16> - LABORATORY CBC & Chemistry Diagram: 01/20/17 14:42 01/20/17 14:42 <Todd Walters - Last Filed: 01/20/17 19:02> Medical Decision Making - Medical Decision Making 01/20/17 16:[address] Angel Walter at [phone]. <Maile Cannon - Last Filed: 01/20/17 18:16> - Medical Decision Making 01/20/17 18:04 This is a 71-year-old man with a history of left total knee replacement one year ago, followed by quadriceps rupture of the left knee requiring surgical repair. He developed infection in the left knee and underwent surgery to clean out the joint, followed by ongoing IV vancomycin antibiotics. His left knee has been improving on the IV vancomycin. He continues to get the vancomycin at home via PICC line. The patient presents to the emergency department today, having been referred by Dr. Walter, orthopedic surgery. He complains of 2 days of progressive swelling of the opposite knee on the right side, with large effusion, inability to bend and straighten the knee, and inability to weight bear due to buckling of his right knee when he tries to stand up. He comes to the ED by EMS. He denies fever. He denies any other joint pain or swelling. On examination, there is a regular rhythm, with frequent premature beats. There is a systolic murmur at the right upper sternal border without radiation. The lungs are clear. The abdomen is benign. The left knee appears to be healing well. The right knee is very swollen with a large joint effusion with decreased range of motion. There is significant increased warmth, but no erythema. The right arm has a PICC line in place with a clean site, no erythema , no discharge, no tenderness. Laboratory studies reviewed: White blood cell count is not elevated. The patient does have anemia with a hemoglobin of 10.2. Glucose is mildly elevated to 158. Creatinine is 1.2. Potassium is mildly reduced to 3.4, and potassium was ordered orally. Lactate is 1.7, negative. CRP and ESR were ordered. Twelve-lead EKG was ordered and is pending. Joint tap was performed on the right knee and results are pending for cell count , crystals, and culture. Given the recent infection the left knee, and now an inflamed right knee, concern is for ongoing bacteremia. Await joint fluid results. Case discussed with Dr. Walter, orthopedic surgery. He is awaiting review of the remainder of the results. Laboratory Tests 01/20/17 01/20/17 01/20/17 14:42 14:42 14:42 WBC 3.2 L D RBC 3.89 L D Hgb 10.2 L D Hct 30.6 L D MCV 78.6 L MCHC 33.4 RDW 15.4 D Plt Count 231 MPV 8.1 Neutrophils % Y Lymphocytes % Y Sodium 135 L Potassium 3.4 L Chloride 99 Carbon Dioxide 25 Anion Gap 11 BUN 21 H D Creatinine 1.2 Creat Clearance w eGFR 59.68 Random Glucose 158 H Lactic Acid Calcium 9.0 Total Bilirubin 1.4 H AST 16 ALT 14 Alkaline Phosphatase 72 C-Reactive Protein 16.9 H D Total Protein 7.5 Albumin 3.2 L 01/20/17 15:00 WBC RBC Hgb Hct MCV MCHC RDW Plt Count MPV Neutrophils % Lymphocytes % Sodium Potassium Chloride Carbon Dioxide Anion Gap BUN Creatinine Creat Clearance w eGFR Random Glucose Lactic Acid 1.7 Calcium Total Bilirubin AST ALT Alkaline Phosphatase C-Reactive Protein Total Protein Albumin 01/20/17 19:01 The scribe's documentation has been prepared under my direction and personally reviewed by me in its entirety. I have confirmed that the note above accurately reflects all work, treatment, procedures, and medical decision- making performed by me. Patient tam Dr. Júnior Sharma at change of shift at 7 PM. <Todd Walters - Last Filed: 01/20/17 19:02> *DC/Admit/Observation/Transfer - Attestations Scribe Attestion: 01/20/17 14:43 Documentation prepared by ALFREDO Walters, acting as curator medical museum for Todd Walters MD. <Maile Cannon - Last Filed: 01/20/17 18:16> <Todd Walters - Last Filed: 01/20/17 19:02> Diagnosis at time of Disposition: Effusion of right knee - Discharge Dispostion Condition at time of disposition: Stable - Referrals Referrals: Antonio Case MD [Primary Care Provider] -
[2017-01-20 15:25] LABS: ALBUMIN 3.2 g/dl (3.5-5.0); ALK PHOS 72 U/L (32-92); ANION GAP 11 (8-16); BILIRUBIN,TOTAL 1.4 mg/dl (0.2-1.0); CO2 25 mmol/L (22-28); CREATININE 1.2 mg/dl (0.6-1.3); GLUCOSE,RANDOM 158 mg/dl (74-106); SGOT/AST 16 U/L (10-42); SGPT/ALT 14 U/L (10-40); TOT PROT 7.5 g/dl (6.4-8.3)
[2017-01-20 15:29] LABS: WHITE BLOOD COUNT 3.2 K/mm3 (4.0-10.8)
[2017-01-20 15:53] LABS: MCH 26.2 pg (25.7-33.7); MCHC 33.4 g/dl (32.0-35.9); MEAN CELL VOLUME 78.6 fl (80-96); MEAN PLT VOLUME 8.1 fl (7.5-11.1); PLATELET COUNT 231 K/MM3 (134-434); RDW 15.4 % (11.9-15.9)
[2017-01-20] MEDS ORDERED: POTASSIUM CHLORIDE TABS 20 MEQ TABLET.ER (FP) PO ONE ×2 (16:36→16:42)
[2017-01-20] MEDS ORDERED: ACETAMINOPHEN INJECTION 100 ML IVPB ONE (19:32)
[2017-01-20] MEDS ORDERED: cefTRIAXone SODIUM 1 GM VIAL ONE (19:41)
[2017-01-20] MEDS ORDERED: CEFTRIAXONE 1 GM in DEXTROSE 5%-WATER - 50 ML IVPB ONE (19:48)
[2017-01-20] MEDS ORDERED: VANCOMYCIN 1,500 MG in DEXTROSE 5%-WATER - 500 ML IVPB ONE (19:50)
[2017-01-20 19:55] LABS: SYNOVIAL FLUID LYMPHOCYTES 1 %; SYNOVIAL FLUID MONOCYTES 18 %; SYNOVIAL FLUID NEUTROPHILS 80 %
[2017-01-20] MEDS ORDERED: ACETAMINOPHEN 1000 MG/100 ML VIAL (NON FORMULARY) IVPB ONE (20:15)
[2017-01-20] MEDS ORDERED: PROPOFOL 20 ML ONE ×3 (20:58)
[2017-01-20] MEDS ORDERED: MIDAZOLAM HCL 2 MG/2 ML SINGLE DOSE VIAL ONE (20:58)
[2017-01-20] MEDS ORDERED: SUCCINYLCHOLINE CHLORIDE 200 MG/10 ML VIAL ONE (20:58)
[2017-01-20] MEDS ORDERED: ONDANSETRON 4 MG/2 ML VIAL ONE (20:59)
[2017-01-20] MEDS ORDERED: ROCURONIUM BROMIDE 50 MG/5 ML VIAL ONE (21:01)
[2017-01-20] MEDS ORDERED: GLYCOPYRROLATE 0.2 MG/1 ML VIAL ONE (21:04)
[2017-01-20] MEDS ORDERED: FAMOTIDINE 20 MG/50 ML IVPB 50 ML IVPB ONE (21:09)
[2017-01-20] MEDS ORDERED: ONDANSETRON 4 MG/2 ML VIAL IVPUSH PRN (22:50)
--- NOTE | 2017-01-20 23:03 | CONS ---
DATE OF CONSULTATION: 01/20/2017 CHIEF COMPLAINT: Right knee swelling. HISTORY OF PRESENT ILLNESS: This is a pleasant gentleman who is 71 years old who had a total knee replacement on the left knee one year ago. He subsequently developed a periprosthetic infection. He was treated with debridement as well as IV antibiotics, which he remains on vancomycin at this time. On day ago, he noticed increasing pain and swelling in the knee. This worsened to the point where he was unable to ambulate and unable to move. He was brought in by ambulance to the emergency department where he was found to have a large effusion. Blood work was drawn demonstrating elevated ESR to 120, elevated CRP to 20, white count of 3. Knee aspirate demonstrated cell count of 35,000 white cells. Culture was pending as well as blood culture. The patient had a temperature of 100.5. Denied any other symptoms at this time. His other knee is feeling well. PAST SURGICAL HISTORY: As above. MEDICATIONS: Reviewed in the chart. REVIEW OF SYSTEMS: Negative for fever, chills, nausea, vomiting, night sweats, dysuria, shortness of breath, chest pain, orthopnea, changes in mood. PHYSICAL EXAMINATION: General: This is a well-appearing male in no acute distress. He is alert and oriented x3. He is seen lying on a hospital stretcher. Extremities: Examination of the right lower extremity demonstrates a large, tense effusion. There is no erythema. There is mild focal warmth. Knee range of motion is 10 degrees to 50 degrees. This is with pain. Distally, sensation is intact to light touch. DP pulse 2+. Distal motor 5/5. IMAGING: Radiographs of the right knee are reviewed. There is advanced osteoarthritis. ASSESSMENT: Right knee, likely septic joint. PLAN: I reviewed these findings with the patient as well as with his son and daughter. We discussed that the combination of the elevated infectious parameters along with an acutely swollen knee and elevated white blood cell count in the knee are highly suspicious for septic joint. We discussed that the typical threshold would be about 50,000 white cells; however, in this setting, the clinical picture does suggest that this indeed septic. We discussed the treatment options including continued antibiotics, which did not penetrate well into the joint effusion, versus operative debridement with arthroscopic treatment. I reviewed surgical risks in detail including bleeding, continued infection, or spread of infection, need for further surgery, postoperative pain and stiffness, osteomyelitis. We discussed medical risks such as heart attack, stroke, DVT, PE and . We discussed that Dr. Jerod Wang will continue to follow him from Infectious Disease as an inpatient. We discussed that he will likely require an echocardiogram to rule out any vegetations, as there was suggestion of a murmur in the emergency department. I addressed all the patient's and his family's questions. They voiced understanding and would like to proceed. He will be brought to the OR tonight. TAMARA PINZON M.D. [id number]
[2017-01-20 23:16] LABS: PLATELET ESTIMATE ADEQUATE (NORMAL)
[2017-01-20 23:21] LABS: ACANTHOCYTES 1+; ANISOCYTOSIS 2+; OVALOCYTES 1+; TEAR DROP CELLS 1+
[2017-01-20] MEDS: LACTATED RINGERS SOLUTION 1,000 ML IV SCH (23:30)
--- NOTE | 2017-01-20 23:37 | HP ---
CHIEF COMPLAINT: Right Knee Pain and Swelling PCP: Dr. Case Ortho: Dr. Viveros Icebox Worker: Dr. Robb Landaverde [phone] ([facility] [place], [place] ) HISTORY OF PRESENT ILLNESS: This is a 71 y/o male with a past medical history of HTN, HLD, DM, CAD s/p DC 2006, Multiple Left Knee Surgeries, Infections s/p L-knee replacement 10/20/15, Quad Repair secondary to a fall, L- knee surgical debridement 12/14/16, on Vancomycin 1GM QD. Who presents to the ED with pain, swelling and warmth to R- knee x 1 day. Patient reports since having surgery to the L- knee he uses the right knee more. He reports having difficulty getting OOB to chair. Patient's son reports his father had 2 "panic attacks" 3 weeks ago and was seen at [facility]. Patient denies fever, chills, SOB, CP, AP, N/V/D, dysuria. 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 Family History: Non-Contributory Allergies shellfish derived Allergy (Severe, Verified 01/20/17 13:19) Vomiting Fish Containing Products Adverse Reaction (Mild, Verified 01/20/17 13:19) Nausea No Known Drug Allergies Adverse Reaction (Unknown, Verified 01/20/17 13:19) SEAFOOD Adverse Reaction (Severe, Uncoded 01/20/17 13:19) Vomiting FISH Adverse Reaction (Mild, Uncoded 01/20/17 13:19) Nausea HOME MEDICATIONS: Home Medications Medication Instructions Recorded Losartan/Hydrochlorothiazide 25 - 100 mg PO DAILY 10/12/15 [Losartan-Hctz 100-25 mg Tab] Metoprolol Tartrate [Lopressor -] 50 mg PO BID 10/12/15 Simvastatin 40 mg PO HS 10/12/15 Sitagliptin Phos/Metformin HCl 50 - 500 mg PO HS 10/12/15 [Janumet 50-500 mg Tablet] Paroxetine HCl [Paxil -] 10 mg PO DAILY 12/13/15 Aspirin [ASA -] 81 mg PO HS 12/14/16 Picc Line Flush [Picc Line Flush -] 8 ml IVPUSH PRN PRN #0 ml 12/20/16 Vancomycin 1 Gram (Pre-Docked) 250 ml IVPB DAILY@2100 #0 bag 12/20/16 [Vancomycin (Pre-Docked)] Docusate Sodium [Colace -] 100 mg PO BID 01/20/17 REVIEW OF SYSTEMS CONSTITUTIONAL: Absent: fever, chills, diaphoresis, generalized weakness, malaise, loss of appetite, weight change HEENT: Absent: rhinorrhea, nasal congestion, throat pain, throat swelling, difficulty swallowing, mouth swelling, ear pain, eye pain, visual changes CARDIOVASCULAR: Absent: chest pain, syncope, palpitations, irregular heart rate, lightheadedness , peripheral edema RESPIRATORY: Absent: cough, shortness of breath, dyspnea with exertion, orthopnea, wheezing, stridor, hemoptysis GASTROINTESTINAL: Absent: abdominal pain, abdominal distension, nausea, vomiting, diarrhea, constipation, melena, hematochezia GENITOURINARY: Absent: dysuria, frequency, urgency, hesitancy, hematuria, flank pain, genital pain MUSCULOSKELETAL: R- knee joint swelling and pain Absent: myalgia, arthralgia, back pain, neck pain SKIN: Absent: rash, itching, pallor HEMATOLOGIC/IMMUNOLOGIC: Absent: easy bleeding, easy bruising, lymphadenopathy, frequent infections ENDOCRINE: Absent: unexplained weight gain, unexplained weight loss, heat intolerance, cold intolerance NEUROLOGIC: Absent: headache, focal weakness or paresthesias, dizziness, unsteady gait, seizure, mental status changes, bladder or bowel incontinence PSYCHIATRIC: Absent: anxiety, depression, suicidal or homicidal ideation, hallucinations. PHYSICAL EXAMINATION GENERAL: Awake, alert, and fully oriented, in no acute distress. HEAD: Normal with no signs of trauma. EYES: Pupils equal, round and reactive to light, extraocular movements intact, sclera anicteric, conjunctiva clear. No lid lag. EARS, NOSE, THROAT: Ears normal, nares patent, oropharynx clear without exudates. Moist mucous membranes. NECK: Normal range of motion, supple without lymphadenopathy, JVD, or masses. LUNGS: Breath sounds equal, clear to auscultation bilaterally. No wheezes, and no crackles. No accessory muscle use. HEART: Regular rate and rhythm, normal S1 and S2 without murmur, rub or gallop. ABDOMEN: Soft, Obese, nontender, not distended, normoactive bowel sounds, no guarding, no rebound, no masses. No hepatomegaly or splenomegaly. MUSCULOSKELETAL: LROM RLE, LLE. Left knee tenderness, edema, warmth. Normal range of motion at RUE, LUE joints. No bony deformities. No CVA tenderness. UPPER EXTREMITIES: 2+ pulses, warm, well-perfused. No cyanosis. No clubbing. No peripheral edema. LOWER EXTREMITIES: 2+ pulses, warm, well-perfused. No calf tenderness. No peripheral edema. NEUROLOGICAL: Cranial nerves II-XII intact. Normal speech. Gait not assessed. PSYCHIATRIC: Cooperative. Good eye contact. Appropriate mood and affect. SKIN: Warm, dry, normal turgor, no rashes or lesions noted, normal capillary refill. ASSESSMENT/PLAN: This is a 71 y/o male with a PMHx of HTN, HLD, CAD, DM, Multiple left knee surgeries, infections. s/p left knee debridement 12/14/16. Admitted for Right Septic Knee Joint, Right Knee Effusion for further evaluation of their emergent condition. 1.Septic R-Knee//Right Knee Effusion - Likely possible Bacteremia - Patient had recent surgical debridement of the left knee is currently on Vancomycin IV daily x 5 weeks. - Blood Cultures-pending - Synovial Fluid showed WBC 56529 - Ceftriaxone, Vancomycin given in ED - Call placed to Dr. Walter via ED- pending Washout tonight in OR - Appreciate ID Consult - Monitor CBC, BMP - Monitor Vitals 2. 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 HTN - Continue Losartan, HCTZ, Lopressor with parameters - Low Na Diet - Monitor renal function 4. HLD - Continue Statin 5. CAD - Continue Asa 6. DM - BGMs - ISS 7. DVT Prophylaxis -OOB - Lovenox SQ 8. FEN - Tolerates PO Fluids - K repleted, continue to monitor - Low Na, Diabetic Diet Code Status: Full Code Dispo: Requires Inpatient Care Problem List - Problem (1) Septic joint of right knee joint Code(s): M00.9 - PYOGENIC ARTHRITIS, UNSPECIFIED (2) Effusion, right knee Code(s): M25.461 - EFFUSION, RIGHT KNEE (3) Heart murmur on physical examination Code(s): R01.1 - CARDIAC MURMUR, UNSPECIFIED (4) Diabetes mellitus Code(s): E11.9 - TYPE 2 DIABETES MELLITUS WITHOUT COMPLICATIONS (5) Hx of CABG Code(s): Z95.1 - PRESENCE OF AORTOCORONARY BYPASS GRAFT (6) Status post total left knee replacement Code(s): Z96.652 - PRESENCE OF LEFT ARTIFICIAL KNEE JOINT (7) DVT prophylaxis Code(s): HMS2754 - Visit type - Emergency Visit Emergency Visit: Yes ED Registration Date: 01/20/17 Care time: The patient presented to the Emergency Department on the above date and was hospitalized for further evaluation of their emergent condition. - New Patient This patient is new to me today: Yes Date on this admission: 01/20/17 - Critical Care Critical Care patient: No
--- NOTE | 2017-01-21 00:03 | OP ---
Operative Note - Note: Operative Date: 01/21/17 Pre-Operative Diagnosis: R septic knee Operation: Right knee arthroscopic I+D Post-Operative Diagnosis: Same as Pre-op Surgeon: Angel Walter Anesthesiologist/FURRIER SHOP SUPERVISOR: Shan Garcia Anesthesia: General Specimens Removed: cx x2 Estimated Blood Loss (mls): 10 Drains & Tubes with Location: x1 from knee ANDREW
[2017-01-21] MEDS ORDERED: PIPERACILLIN/TAZOB 3.375 GM/50 ML PRE-DOCKED IVPB ONE ×2 (00:15→00:30)
[2017-01-21 00:46] VITALS: BMI 30.4
[2017-01-21] MEDS ORDERED: PIPERACILLIN/TAZOB 3.375 GM/50 ML PRE-DOCKED IVPB SCH ×2 (02:00→12:45)
[2017-01-21] MEDS: INSULIN SLIDING SCALE (NOVOLOG) 1 VIAL SQ SCH ×4 (07:02→21:35)
--- NOTE | 2017-01-21 09:12 | PN ---
Progress Note (short form) - Note Progress Note: Pt lying comf in bed. States no pain. AF VSS RLE dressings cdi drain with bloody fluid calves soft NT NVID a/p POD 1 R knee arthroscopic I+D -continue abx, will adjust as per , reviewed case on the phone -oob, ambulate -dvt proph -follow up cx, crystal analysis
[2017-01-21] MEDS: ASPIRIN 81 MG CHEWABLE TABLETS PO SCH (09:18)
[2017-01-21] MEDS: PARoxetine HCL 10 MG TABLET (FP) PO SCH (09:18)
[2017-01-21] MEDS: METOPROLOL TARTRATE 50 MG TABLET (FP) PO SCH ×2 (09:18→21:33)
[2017-01-21] MEDS: LOSARTAN POTASSIUM 50 MG TABLET (FP) PO SCH (09:18)
[2017-01-21] MEDS: HYDROCHLOROTHIAZIDE 25 MG TABLET (FP) PO SCH (09:18)
[2017-01-21] MEDS: FERROUS SO4 325 MG TABLET (FP) PO SCH ×2 (09:18→21:34)
[2017-01-21] MEDS: DOCUSATE SODIUM 100 MG CAPSULE (FP) PO SCH ×2 (09:19→21:33)
[2017-01-21] MEDS: PIPERACILLIN/TAZOB 3.375 GM/50 ML PRE-DOCKED IVPB SCH ×6 (09:20→17:14)
[2017-01-21] MEDS: ENOXAPARIN NA (PORCINE) 40 MG/0.4 ML DISP.SYRIN SQ SCH (09:21)
--- NOTE | 2017-01-21 09:32 | PN ---
Physical Exam: SUBJECTIVE: Patient seen and examined at bedside. Denies all c/o at present. OBJECTIVE: Vital Signs 3 Period Temp Pulse Resp BP Sys/Taylor Pulse Ox Last 24 Hr 97.5 F-98.3 F 76-98 19-20 109-120/55-62 98-98 GENERAL: The patient is awake, alert, and fully oriented, in no acute distress. HEAD: Normal with no signs of trauma. EYES: PERRL, extraocular movements intact, sclera anicteric, conjunctiva clear. No ptosis. ENT: Ears normal, nares patent, oropharynx clear without exudates, moist mucous membranes. NECK: Trachea midline, full range of motion, supple. LUNGS: Breath sounds equal, clear to auscultation bilaterally, no wheezes, no crackles, no accessory muscle use. HEART: Regular rate and rhythm, S1, S2, rub or gallop. 2/6 systolic murmur noted. ABDOMEN: Soft, nontender, nondistended, normoactive bowel sounds, no guarding, no rebound, no hepatosplenomegaly, no masses. EXTREMITIES: 2+ pulses, warm, well-perfused, no edema. Right knee post-op with ANDREW in place with bloody drainage. NEUROLOGICAL: Cranial nerves II through XII grossly intact. Normal speech, gait not observed. PSYCH: Normal mood, normal affect. SKIN: Warm, dry, normal turgor, no rashes or lesions noted Laboratory Results - last 24 hr 3 01/21/17 06:59 POC Glucometer 149 Active Medications 3 Generic Name Dose Route Start Last Admin Trade Name Freq PRN Reason Stop Dose Admin Aspirin 81 mg 01/21/17 10:00 01/21/17 09:18 Asa - PO 81 mg DAILY NEHEMIAS Administration Atorvastatin Calcium 20 mg 01/21/17 22:00 Lipitor - PO HS NEHEMIAS Docusate Sodium 100 mg 01/21/17 10:00 01/21/17 09:19 Colace - PO 100 mg BID NEHEMIAS Administration Enoxaparin Sodium 40 mg 01/21/17 10:00 01/21/17 09:21 Lovenox - SQ 40 mg DAILY NEHEMIAS Administration Fentanyl 50 mcg 01/20/17 22:50 Sublimaze Injection - IVPUSH 01/23/17 22:51 [id number] PRN PAIN Ferrous Sulfate 325 mg 01/21/17 10:00 01/21/17 09:18 Feosol - PO 325 mg BID NEHEMIAS Administration Hydrochlorothiazide 25 mg 01/21/17 10:00 01/21/17 09:18 Hctz - PO 25 mg DAILY NEHEMIAS Administration Lactated Ringer's 1,000 mls @ 75 mls/hr 01/20/17 23:00 01/20/17 23:30 Lactated Ringers Solution IV 75 mls/hr ASDIR NEHEMIAS Administration Insulin Aspart 1 vial 01/21/17 07:00 01/21/17 07:02 Novolog Vial Sliding Scale - SQ Not Given ACHS [facility] Protocol Losartan Potassium 100 mg 01/21/17 10:00 01/21/17 09:18 Cozaar - PO 100 mg DAILY NEHEMIAS Administration Metoprolol Tartrate 50 mg 01/21/17 10:00 01/21/17 09:18 Lopressor - PO 50 mg BID NEHEMIAS Administration Oxycodone/Acetaminophen 2 combo 01/21/17 00:30 Percocet 5/325 - PO Q6H PRN PAIN LEVEL 6-10 Paroxetine HCl 10 mg 01/21/17 10:00 01/21/17 09:18 Paxil - PO 10 mg DAILY NEHEMIAS Administration Piperacillin Sod/Tazobactam Sod 3.375 gm 01/21/17 02:00 01/21/17 09:20 Zosyn 3.375gm Ivpb (Pre-Docked) IVPB Not Given Q8H-IV [facility] Protocol Vancomycin HCl 1,000 mg 01/21/17 17:00 Vancomycin (Pre-Docked) IVPB DAILY [facility] Protocol ASSESSMENT/PLAN: A: This is a 71 y/o male with a PMHx of HTN, HLD, CAD, DM, Multiple left knee surgeries, infections. s/p left knee debridement 12/14/16. Admitted for Right Septic Knee Joint s/p washout. P: 1. Septic R-Knee - Possible Bacteremia - Patient had recent surgical debridement of the left knee is currently on Vancomycin IV daily x 5 weeks. - Blood Cultures-pending - Synovial Fluid showed WBC 93537 - started on Zosyn - Appreciate ID Consult - Monitor CBC, BMP - Monitor Vitals - Dr. Walter following 2. Heart Murmur noted on Exam - Concern for Endocarditis - Echo r/o vegetation - EKG- Reviewed - Call placed to Dr. Abbasi- unable to get information- will try tomorrow - f/u with Cardiology outpatient 3. Right knee arthroscopic I&D - incentive spirometry - remainder per ortho 4. HTN - Continue Losartan, HCTZ, Lopressor - Monitor renal function 5. HLD - Continue Statin 6. CAD - Continue Asa 7. DM - BGMs - ISS 8. DVT Prophylaxis - OOB - Lovenox SQ - PT 9. FEN - K repleted, continue to monitor - Low Na, Diabetic Diet Code Status: Full Code Dispo: Requires Inpatient Care Visit type - Emergency Visit Emergency Visit: Yes ED Registration Date: 01/20/17 Care time: The patient presented to the Emergency Department on the above date and was hospitalized for further evaluation of their emergent condition. - New Patient This patient is new to me today: Yes Date on this admission: 01/21/17 - Critical Care Critical Care patient: No
[2017-01-21 11:48] LABS: CRYSTALS,SYNOVIAL FLUID NEGATIVE
[2017-01-21] MEDS: VANCOMYCIN 1 GRAM (PRE-DOCKED) 1,000 MG/250 ML BAG IVPB SCH (16:01)
--- NOTE | 2017-01-21 18:16 | PN ---
Progress Note (short form) - Note Progress Note: ID consult dictated imp/reccd r/o septic arthritis right knee- ?arthritis, ?trauma 71 year old man currently on iv vancomycin via picc line for L TKR infection - followed by dr mirza- sunday night he stood up from the chair and right knee buckled and became swollen he was unable to weight bear the next morning the knee was swollen, no erythem or warmth no fevers he called his orthopaedist and came to the ed where his knee was tapped He was taken to the OR later the same day (yesterday)and had his knee washed out I spoke with Dr Walter this am plan is to continue vancomycin and zosyn I asked Micro to hold specimen for 2 weeks check lyme, esr, crp as well Dr Mirza will f/u in am
--- NOTE | 2017-01-21 18:19 | OP ---
DATE OF OPERATION: DATE OF DICTATION: 01/21/2017 CHIEF COMPLAINT: Right knee swelling. HISTORY OF PRESENT ILLNESS: This is a pleasant gentleman who has been treated for a left periprosthetic joint infection. He was continuing on IV antibiotics. The patient noticed a day of increasing pain and swelling. Given this information after calling the office, he was advised to present to the ER. Aspiration there of the knee demonstrated 36,000 white cells. He demonstrated an ESR of 123 and an elevated CRP of 20. Given these factors, it was felt that there was a high suspicion for septic knee. Treatment options including nonoperative versus operative management were discussed. Operative risks were reviewed in detail including bleeding, persistent infection, need for further surgery, postoperative pain and stiffness, progression of already advanced osteoarthritis, osteomyelitis, further spread of infection. We discussed medical risks such as heart attack, stroke, DVT, PE, and . The patient voiced understanding and elected to proceed. In addition, we discussed that a full infectious workup would be necessary, and he is already followed by the infectious disease specialist here at [facility]. PROCEDURE: The patient was brought to the operating room, where general anesthesia was administered. The right lower extremity was then prepped and draped in the usual sterile fashion. The patient was already on vancomycin for antibiotic so no additional dose was given. The arthroscopic portal sites were now marked out. It should be noted that a large, tense effusion was noted. At this point, the anterolateral portal was established using an 11 blade. A trocar was passed into the knee. The infusion was initially drained. A specimen was sent for culture. The fluid appeared very thick and bright yellow in color, consistent with infection. The arthroscope was now inserted into the joint. There was a diffuse synovitis present in the suprapatellar pouch. The arthroscope was now passed down into the patellofemoral joint, where advanced osteoarthritis was noted. The arthroscope was now passed into the notch. A medial portal was now established. The arthroscope was now passed into the medial compartment. Here again advanced osteoarthritis was noted. A complex tear was noted of the meniscus. A 4.2-mm shaver was now inserted, and the meniscus was debrided. The arthroscope was now passed back across the notch into the lateral compartment. Here again, meniscal tearing was noted along with advanced degenerative change. The lateral meniscus was debrided as well. The arthroscope was now passed around the entire knee, performing synovectomy of any tissue that appeared nonviable. There was diffuse pinkish coating on the synovium around the knee, which was removed. Synovectomy was performed to patellar pouch, medial and lateral compartments. The knee was irrigated with 12 L of saline. A superolateral incision was now made, and a drain was placed into the knee under arthroscopic visualization. Portal sites were now sutured using 3-0 nylon. The drain was sutured in using 3-0 nylon. Pressure dressing was placed. The patient was extubated and transferred to recovery room in stable condition. Dez [id number]
[2017-01-21] MEDS: ACETAMINOPHEN 325 MG TABLET (FP) PO PRN (18:31)
--- NOTE | 2017-01-21 19:03 | CONS ---
DATE OF CONSULTATION: DATE OF DICTATION: 01/21/2017 REQUESTED BY: Hospitalist service This is a 71-year-old man with past medical history of a recent left total knee infection. He originally had surgery 1 year ago, in October of 2015. This past December, the knee became swollen, and he was subsequently diagnosed with a left total knee infection. He had a washout, and he was started on vancomycin 1 g daily which he is doing at home. He is followed by Dr. Wang as an outpatient as well as Dr. Viveros. He has been wearing a brace for the leg but has been able to walk. This past Sunday night, he was sitting at home, he got up, and his right knee buckled and became swollen. There were no fevers. The next morning it was swollen, there was no erythema, it was not warm. He had no fever. He came to the emergency room complaining of pain in the knee. In the knee, he had an arthrocentesis with a WBC count in the knee of 35,872. He had called Dr. Viveros prior to going to the ER. Dr. Walter, who works with Dr. Viveros, then took him to the operating room, and he had his knee washed out yesterday evening. He reports that there was about 200 mL of yellowish fluid that he drained and washed out. The patient is currently resting comfortably. He has a drain in the foot that has some bloody drainage. His past medical history is notable for hypertension, hyperlipidemia, diabetes, coronary artery disease, status post ID. He does have osteoarthritis. He recently had a left total knee repair in October of 2015. He subsequently fell and needed to have muscle surgery to attach a tendon to his knee after the original surgery, followed by the recent washout in December of this year. He reports he has been in the house, he has not been out. There have been no bug bites, and essentially he has only taken the ambulette to doctors' appointments. Family history is noncontributory. He is allergic to SHELLFISH and SEAFOOD. His medications at home include losartan, hydrochlorothiazide, metoprolol, simvastatin, Janumet, Paxil, aspirin, vancomycin 1 g daily, and Colace 100 b.i.d. SOCIAL HISTORY: There is no history of any cigarette or substance use. 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 REVIEW OF SYSTEMS: He has had no fevers or chills. There is no nausea, vomiting, diarrhea, or dysuria. PHYSICAL EXAMINATION: General: He is awake and alert. He has had no fever. Vital Signs: Current temperature is 98.8. His T-max is 100.5. Blood pressure is 117/61. Pulse is 74. Respiratory rate 19. He is saturating 100%. HEENT: He is normocephalic. His eyes are anicteric. Neck: Supple. Lungs: Clear to auscultation. Heart: Regular rate and rhythm. Abdomen: Soft, nontender. Extremities: He has an immobilizer for the left leg, and he has a bandage on the right with a Iker-Lopez drain that has some bloody fluid. His labs are notable for a white count of 3.2, hemoglobin 10.2, platelets are 231, with 39% polys and 26% lymphocytes. He has 10% bands as well, and a sedimentation rate of 123. His BUN 21 and creatinine 1.2. CRP is 16.9. His synovial fluid was notable for 35,872 white cells, 80% polys, with crystals pending. Cultures are pending as well. In summary, this is a very unusual case of developing right knee swelling while on IV vancomycin. It is unclear whether he truly has an infection of the knee, or whether this is all arthritic. We have covered him broadly with vancomycin and Zosyn. I have asked Micro to hold the specimen for 2 weeks. Would follow up sedimentation rates and CRPs, as well as check a Lyme, although he reports in the last 6 weeks he has not really been outdoors. Further recommendations to follow. SRINIVAS GOMES M.D. [id number]
[2017-01-21] MEDS ORDERED: INSULIN (NOVOLOG) ASPART 100 UNITS/ML 10ML VIAL ONE (21:31)
[2017-01-21] MEDS: ATORVASTATIN CA 20 MG TABLET (FP) PO SCH (21:34)
[2017-01-21] MEDS: LACTATED RINGERS SOLUTION 1,000 ML IV SCH (23:05)
[2017-01-22] MEDS: PIPERACILLIN/TAZOB 3.375 GM/50 ML PRE-DOCKED IVPB SCH ×3 (01:32→18:25)
[2017-01-22] MEDS: INSULIN SLIDING SCALE (NOVOLOG) 1 VIAL SQ SCH ×3 (07:13→21:09)
[2017-01-22 08:20] LABS: MCH 25.2 pg (25.7-33.7); MCHC 32.1 g/dl (32.0-35.9); MEAN CELL VOLUME 78.5 fl (80-96); MEAN PLT VOLUME 7.6 fl (7.5-11.1); PLATELET COUNT 249 K/MM3 (134-434); RDW 15.6 % (11.9-15.9); WHITE BLOOD COUNT 2.6 K/mm3 (4.0-10.8)
--- NOTE | 2017-01-22 08:52 | PN ---
Progress Note, Physician History of Present Illness: Awake, alert No c/o knee pain Afebrile S/P washout R knee Cultures pending - Current Medication List Current Medications: Active Medications Acetaminophen (Tylenol -) 650 mg PO Q6H PRN PRN Reason: FEVER OR PAIN Last Admin: 01/21/17 18:31 Dose: 650 mg Aspirin (Asa -) 81 mg PO DAILY [facility] Last Admin: 01/21/17 09:18 Dose: 81 mg Atorvastatin Calcium (Lipitor -) 20 mg PO HS [facility] Last Admin: 01/21/17 21:34 Dose: 20 mg Docusate Sodium (Colace -) 100 mg PO BID [facility] Last Admin: 01/21/17 21:33 Dose: 100 mg Enoxaparin Sodium (Lovenox -) 40 mg SQ DAILY [facility] Last Admin: 01/21/17 09:21 Dose: 40 mg Fentanyl (Sublimaze Injection -) 50 mcg IVPUSH [id number] PRN PRN Reason: PAIN Stop: 01/23/17 22:51 Ferrous Sulfate (Feosol -) 325 mg PO BID [facility] Last Admin: 01/21/17 21:34 Dose: 325 mg Hydrochlorothiazide (Hctz -) 25 mg PO DAILY [facility] Last Admin: 01/21/17 09:18 Dose: 25 mg Lactated Ringer's (Lactated Ringers Solution) 1,000 mls @ 75 mls/hr IV ASDIR [facility] Last Admin: 01/21/17 23:05 Dose: 75 mls/hr Insulin Aspart (Novolog Vial Sliding Scale -) 1 vial SQ ACHS [facility] PRN Reason: Protocol Last Admin: 01/22/17 07:13 Dose: 2 units Losartan Potassium (Cozaar -) 100 mg PO DAILY [facility] Last Admin: 01/21/17 09:18 Dose: 100 mg Metoprolol Tartrate (Lopressor -) 50 mg PO BID [facility] Last Admin: 01/21/17 21:33 Dose: 50 mg Oxycodone/Acetaminophen (Percocet 5/325 -) 2 combo PO Q6H PRN PRN Reason: PAIN LEVEL 6-10 Paroxetine HCl (Paxil -) 10 mg PO DAILY [facility] Last Admin: 01/21/17 09:18 Dose: 10 mg Piperacillin Sod/Tazobactam Sod (Zosyn 3.375gm Ivpb (Pre-Docked)) 3.375 gm IVPB Q8H-IV [facility] PRN Reason: Protocol Last Admin: 01/22/17 01:32 Dose: 3.375 gm Vancomycin HCl (Vancomycin (Pre-Docked)) 1,000 mg IVPB DAILY [facility] PRN Reason: Protocol Last Admin: 01/21/17 16:01 Dose: 1,000 mg - Objective Vital Signs: Vital Signs Temperature 98.4 F 01/22/17 05:00 Pulse Rate 70 01/22/17 05:00 Respiratory Rate 17 01/22/17 05:00 Blood Pressure 137/60 01/22/17 05:00 O2 Sat by Pulse Oximetry (%) 100 01/22/17 06:24 Constitutional: Yes: No Distress Eyes: Yes: Conjunctiva Clear Cardiovascular: Yes: Regular Rate and Rhythm, S1, S2 Respiratory: Yes: CTA Bilaterally Gastrointestinal: Yes: Normal Bowel Sounds, Soft. No: Tenderness Extremities: No: Other (Post op dressing in place R Knee L knee minimal swelling No erythema/warmth) Assessment/Plan S/P washout R knee Cultures pending Septic arthritits L knee on vancomycin Await c/s Continue empiric zosyn/ vancomycin
[2017-01-22 09:05] LABS: ANION GAP 8 (8-16); CALCIUM 8.7 mg/dl (8.4-10.2); CO2 26 mmol/L (22-28); CREATININE 1.2 mg/dl (0.6-1.3); GLUCOSE,RANDOM 155 mg/dl (74-106)
[2017-01-22] MEDS: VANCOMYCIN 1 GRAM (PRE-DOCKED) 1,000 MG/250 ML BAG IVPB SCH (09:43)
[2017-01-22] MEDS: METOPROLOL TARTRATE 50 MG TABLET (FP) PO SCH ×2 (09:43→21:09)
[2017-01-22] MEDS: DOCUSATE SODIUM 100 MG CAPSULE (FP) PO SCH ×2 (09:43→21:09)
[2017-01-22] MEDS: LOSARTAN POTASSIUM 50 MG TABLET (FP) PO SCH (09:43)
[2017-01-22] MEDS: PARoxetine HCL 10 MG TABLET (FP) PO SCH (09:43)
[2017-01-22] MEDS: FERROUS SO4 325 MG TABLET (FP) PO SCH ×2 (09:43→21:09)
[2017-01-22] MEDS: HYDROCHLOROTHIAZIDE 25 MG TABLET (FP) PO SCH (09:43)
[2017-01-22] MEDS: ASPIRIN 81 MG CHEWABLE TABLETS PO SCH (09:43)
[2017-01-22] MEDS: ENOXAPARIN NA (PORCINE) 40 MG/0.4 ML DISP.SYRIN SQ SCH (09:44)
--- NOTE | 2017-01-22 11:23 | PN ---
Progress Note (short form) - Note Progress Note: Pt lying comf in bed. States no pain in either knee. AF VSS RLE dressings cdi drain with continued bloody fluid calves soft NT NVID wbc down to 2 a/p POD 2 R knee arthroscopic I+D -will continue drain at this point -unclear why patient increasingly neutropenic -oob, ambulate -f/u cx
--- NOTE | 2017-01-22 13:16 | PN ---
Physical Exam: SUBJECTIVE: Patient seen and examined, patient reports feeling well, denies any tactile fever, reports minimal pain to the right knee. ANDREW drainage 60ml within the past 8 hours. OBJECTIVE: patient is a 71 y/o male with a PMHx of HTN, HLD, CAD, NIDDM, left TKR, s/p left knee debridement 12/14/16. Patient was admitted from the emergency department for right knee septic Knee Joint s/p ID (01/20/17). Vital Signs Period Temp Pulse Resp BP Sys/Taylor Pulse Ox Last 24 Hr 98.4 F-99.2 F 62-72 17-18 104-137/49-60 98-100 Intake & Output GENERAL: The patient is awake, alert, and fully oriented, in no acute distress. HEAD: Normal with no signs of trauma. EYES: PERRL, extraocular movements intact, sclera anicteric, conjunctiva clear. No ptosis. ENT: Ears normal, nares patent, oropharynx clear without exudates, moist mucous membranes. NECK: Trachea midline, full range of motion, supple. LUNGS: Breath sounds equal, clear to auscultation bilaterally, no wheezes, no crackles, no accessory muscle use. HEART: Regular rate and rhythm, S1, S2 without murmur, rub or gallop. ABDOMEN: Soft, nontender, nondistended, normoactive bowel sounds, no guarding, no rebound, no hepatosplenomegaly, no masses. EXTREMITIES: 2+ pulses, warm, well-perfused, no edema. RIGHT KNEE: dressing CDI, ANDREW serrous sangenous drainage, less than 3 second capillary refill, + 3 pedal pulse. NEUROLOGICAL: Cranial nerves II through XII grossly intact. Normal speech, gait not observed. PSYCH: Normal mood, normal affect. SKIN: Warm, dry, normal turgor, no rashes or lesions noted Laboratory Results - last 24 hr 01/21/17 01/21/17 01/22/17 15:55 21:28 06:01 WBC RBC Hgb Hct MCV MCHC RDW Plt Count MPV Neutrophils % Lymphocytes % Monocytes % Eosinophils % Basophils % Band Neutrophils Sodium Potassium Chloride Carbon Dioxide Anion Gap BUN Creatinine POC Glucometer 130 179 154 Random Glucose Calcium 01/22/17 01/22/17 07:21 07:21 WBC 2.6 L RBC 3.45 L Hgb 8.7 L D Hct 27.1 L MCV 78.5 L MCHC 32.1 RDW 15.6 Plt Count 249 MPV 7.6 Neutrophils % 44.0 Lymphocytes % 27.0 D Monocytes % 19.0 H Eosinophils % 2.0 D Basophils % 1.0 D Band Neutrophils 6.0 D Sodium 135 L Potassium 4.0 Chloride 101 Carbon Dioxide 26 Anion Gap 8 BUN 17 Creatinine 1.2 POC Glucometer Random Glucose 155 H Calcium 8.7 Active Medications Generic Name Dose Route Start Last Admin Trade Name Freq PRN Reason Stop Dose Admin Acetaminophen 650 mg 01/21/17 18:24 01/21/17 18:31 Tylenol - PO 650 mg Q6H PRN Administration FEVER OR PAIN Aspirin 81 mg 01/21/17 10:00 01/22/17 09:43 Asa - PO 81 mg DAILY [facility] Administration Atorvastatin Calcium 20 mg 01/21/17 22:00 01/21/17 21:34 Lipitor - PO 20 mg HS [facility] Administration Docusate Sodium 100 mg 01/21/17 10:00 01/22/17 09:43 Colace - PO 100 mg BID [facility] Administration Enoxaparin Sodium 40 mg 01/21/17 10:00 01/22/17 09:44 Lovenox - SQ 40 mg DAILY [facility] Administration Fentanyl 50 mcg 01/20/17 22:50 Sublimaze Injection - IVPUSH 01/23/17 22:51 [id number] PRN PAIN Ferrous Sulfate 325 mg 01/21/17 10:00 01/22/17 09:43 Feosol - PO 325 mg BID [facility] Administration Hydrochlorothiazide 25 mg 01/21/17 10:00 01/22/17 09:43 Hctz - PO 25 mg DAILY [facility] Administration Insulin Aspart 1 vial 01/21/17 07:00 01/22/17 07:13 Novolog Vial Sliding Scale - SQ 2 units ACHS [facility] Administration Protocol Losartan Potassium 100 mg 01/21/17 10:00 01/22/17 09:43 Cozaar - PO 100 mg DAILY [facility] Administration Metoprolol Tartrate 50 mg 01/21/17 10:00 01/22/17 09:43 Lopressor - PO 50 mg BID [facility] Administration Oxycodone/Acetaminophen 2 combo 01/21/17 00:30 Percocet 5/325 - PO Q6H PRN PAIN LEVEL 6-10 Paroxetine HCl 10 mg 01/21/17 10:00 01/22/17 09:43 Paxil - PO 10 mg DAILY [facility] Administration Piperacillin Sod/Tazobactam Sod 3.375 gm 01/21/17 12:45 01/22/17 09:00 Zosyn 3.375gm Ivpb (Pre-Docked) IVPB 3.375 gm Q8H-IV [facility] Administration Protocol Vancomycin HCl 1,000 mg 01/21/17 17:00 01/22/17 09:43 Vancomycin (Pre-Docked) IVPB 1,000 mg DAILY [facility] Administration Protocol Microbiology 01/20/17 17:30 Synovial Fluid - Knee Gram Stain - Final 01/20/17 17:30 Synovial Fluid - Knee Body Fluid Culture - Preliminary NO AEROBIC GROWTH, 24 HRS 01/20/17 10:00 Synovial Fluid - Knee Gram Stain - Final 01/20/17 10:00 Synovial Fluid - Knee Body Fluid Culture - Preliminary NO AEROBIC GROWTH, 24 HRS 01/20/17 10:00 Synovial Fluid - Knee Gram Stain - Final 01/20/17 10:00 Synovial Fluid - Knee Body Fluid Culture - Preliminary NO AEROBIC GROWTH, 24 HRS 01/20/17 19:31 Blood - Peripheral Venous Blood Culture - Preliminary NO GROWTH OBTAINED AFTER 24 HOURS, INCUBATION TO CONTINUE FOR 4 DAYS. 01/20/17 19:00 Blood - Peripheral Venous Blood Culture - Preliminary NO GROWTH OBTAINED AFTER 24 HOURS, INCUBATION TO CONTINUE FOR 4 DAYS. 01/20/17 14:42 Blood - Peripheral Venous Blood Culture - Preliminary NO GROWTH OBTAINED AFTER 24 HOURS, INCUBATION TO CONTINUE FOR 4 DAYS. 01/20/17 14:42 Blood - Peripheral Venous Blood Culture - Preliminary NO GROWTH OBTAINED AFTER 24 HOURS, INCUBATION TO CONTINUE FOR 4 DAYS. ASSESSMENT/PLAN: 1. ortho: s/p right knee I&D, septic arthritis - blood and synovial cultures, negative to date - pt afebrile no leukocytosis noted - continue zosyn and vancomycin as per ID (Felipe) - ortho consulted and following - pending echo r/o vegetation 2) card hypertension - continue loosartan, lopressor, hctz - b/p at goal hyperlipidemia - continue lipitor CAD - CABAG x 5 (2006) - documentation obtained from sales lead, Dr Rushing, EF 56%, mild ar,tr 3) heme microcytic anemia - hgb 8.7 baseline 11.9 - pt neutropenic unknown etiology, appreciate hematology input - pending iron studies - strict monitoring, repeat cbc in am 4) endo NIDDM - continue fingersticks achs, regular insulin sliding scale f/e/n - low sodium, diabetic diet - replete electroylytes prn ppx - oob - scd/milo - pt - lovenox - zantac dispo:requires inpatient care Visit type - Emergency Visit Emergency Visit: Yes ED Registration Date: 01/20/17 Care time: The patient presented to the Emergency Department on the above date and was hospitalized for further evaluation of their emergent condition. - New Patient This patient is new to me today: Yes Date on this admission: 01/22/17 - Critical Care Critical Care patient: No - Discharge Referral Referred to [facility] Med P.C.: No
[2017-01-22] MEDS: RANITIDINE HCL 150 MG TABLET (FP) PO SCH (14:00)
--- NOTE | 2017-01-22 18:19 | EKG ---
Test Reason : Blood Pressure : / mmHG Vent. Rate : 098 BPM Atrial Rate : 077 BPM P-R Int : 206 ms QRS Dur : 120 ms QT Int : 368 ms P-R-T Axes : 066 -42 099 degrees QTc Int : 469 ms SINUS RHYTHM WITH PREMATURE SUPRAVENTRICULAR COMPLEXES AND WITH FREQUENT PREMATURE VENTRICULAR COMPLEXES LEFT AXIS DEVIATION LEFT VENTRICULAR HYPERTROPHY WITH QRS WIDENING AND REPOLARIZATION ABNORMALITY WHEN COMPARED WITH ECG OF 26-DEC-2016 19:04, NO SIGNIFICANT CHANGE WAS FOUND Confirmed by MD OTILIO, PACO ([id number]) on 01/22/2017 6:19:10 PM Referred By: COLUMBA RAMOS Confirmed By:PACO YAÑEZ MD
[2017-01-22] MEDS ORDERED: INSULIN (NOVOLOG) ASPART 100 UNITS/ML 10ML VIAL ONE (21:01)
[2017-01-22] MEDS: ATORVASTATIN CA 20 MG TABLET (FP) PO SCH (21:09)
--- NOTE | 2017-01-22 23:08 | CONSULT ---
Consult Consult Specialty:: heme Reason for Consultation:: anemia - History of Present Illness Chief Complaint: swollen, painful R knee History of Present Illness: 71 yom w h/o HTN, HL, CAD s/p CABG, recent onset DM. He underwent L knee r/p last yr. This yr, noted to have septic L knee joint and he underwent debridement and continues on outpt IV abx. Reported acute onset R knee swelling and undergoing w/u for this. He is now s/p R wash out. Found to be anemic, unclear what his baseline is, has remained w mild anemia over past yr. He notes 100# down in less than 1 yr, which he attrib to new onset DM. Never had colonoscopy or transfusion. Consumes reg diet - History Source History Provided By: Patient, Medical Record Limitations to Obtaining History: No Limitations - Past Medical History Cardio/Vascular: Yes: CAD, HTN, Hyperlipdemia Gastrointestinal: Yes: GERD Renal/: Yes: BPH, Renal Calculi Psych: Yes: Depression Musculoskeletal: Yes: Osteoarthritis Endocrine: Yes: Diabetes Mellitus Dermatology: Yes: Melanoma (left forehead) - Past Surgical History Past Surgical History: Yes: CABG, Hernia Repair, Joint Replacement (right TKR, Left knee arthroscopy) - Alcohol/Substance Use Hx Alcohol Use: Yes (OCCASIONALLY) History of Substance Use: reports: None - Smoking History Smoking history: Former smoker Have you smoked in the past 12 months: No Aproximately how many cigarettes per day: 20 If you are a former smoker, when did you quit?: 1977 - Social History Usual Living Arrangement: With Significant Other ADL: Family Assistance 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 of 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 Travel: No Home Medications - Allergies Allergies/Adverse Reactions: Allergies Allergy/AdvReac Type Severity Reaction Status Date / Time shellfish derived Allergy Severe Vomiting Verified 01/20/17 13:19 Fish Containing Products AdvReac Mild Nausea Verified 01/20/17 13:19 No Known Drug Allergies AdvReac Unknown Verified 01/20/17 13:19 SEAFOOD AdvReac Severe Vomiting Uncoded 01/20/17 13:19 FISH AdvReac Mild Nausea Uncoded 01/20/17 13:19 - Home Medications Home Medications: Ambulatory Orders Losartan/Hydrochlorothiazide [Losartan-Hctz 100-25 mg Tab] 25 - 100 mg PO DAILY 10/12/15 Metoprolol Tartrate [Lopressor -] 50 mg PO BID 10/12/15 Simvastatin 40 mg PO HS 10/12/15 Sitagliptin Phos/Metformin HCl [Janumet 50-500 mg Tablet] 50 - 500 mg PO HS 08/28 Paroxetine HCl [Paxil -] 10 mg PO DAILY 12/13/15 Aspirin [ASA -] 81 mg PO HS 12/14/16 Picc Line Flush [Picc Line Flush -] 8 ml IVPUSH PRN PRN #0 ml 12/20/16 Vancomycin 1 Gram (Pre-Docked) [Vancomycin (Pre-Docked)] 250 ml IVPB DAILY@2100 #0 bag 12/20/16 Docusate Sodium [Colace -] 100 mg PO BID 01/20/17 Family Disease History - Family Disease History Family Disease History: Diabetes: Mother (Dementia), Heart Disease: Father (ND, Blood Transfusion), Mother, Brother (ND- Bypass), Other: Mother Review of Systems - Review of Systems Constitutional: reports: Unintentional Wgt. Loss Gastrointestinal: reports: No Symptoms Physical Exam Vital Signs: Vital Signs Temperature 98.6 F 01/22/17 22:05 Pulse Rate 66 01/22/17 22:05 Respiratory Rate 16 01/22/17 22:05 Blood Pressure 112/58 01/22/17 22:05 O2 Sat by Pulse Oximetry (%) 98 01/22/17 22:05 Constitutional: Yes: No Distress HENT: Yes: Atraumatic Neck: Yes: Supple Cardiovascular: Yes: WNL Respiratory: Yes: CTA Bilaterally Gastrointestinal: Yes: Soft Musculoskeletal: Yes: Other (LLE brace RLE dressing hand musculature wasting) Labs: CBC, BMP 01/22/17 07:21 01/22/17 07:21 Assessment/Plan mod anemia bkd septic joint, use of abx, DM, other? neutropenic during this hospitalization related to infxn/abx suppressing marrow? other pls send B12, fol, SPEP, TFTs, repeat bili w fractions, retic, hapto, LDH
[2017-01-23] MEDS: PIPERACILLIN/TAZOB 3.375 GM/50 ML PRE-DOCKED IVPB SCH ×3 (01:24→17:28)
[2017-01-23] MEDS: INSULIN SLIDING SCALE (NOVOLOG) 1 VIAL SQ SCH ×4 (06:12→22:09)
[2017-01-23 08:07] LABS: SERUM IRON 25 ug/dL (38-169); TOTAL IRON BINDING CAPACITY 176 ug/dL (250-450); UIBC 151 ug/dL (111-343)
[2017-01-23] MEDS: VANCOMYCIN 1 GRAM (PRE-DOCKED) 1,000 MG/250 ML BAG IVPB SCH (09:00)
[2017-01-23] MEDS: ASPIRIN 81 MG CHEWABLE TABLETS PO SCH (09:59)
[2017-01-23] MEDS: HYDROCHLOROTHIAZIDE 25 MG TABLET (FP) PO SCH (09:59)
[2017-01-23] MEDS: DOCUSATE SODIUM 100 MG CAPSULE (FP) PO SCH ×2 (09:59→22:09)
[2017-01-23] MEDS: LOSARTAN POTASSIUM 50 MG TABLET (FP) PO SCH (09:59)
[2017-01-23] MEDS: FERROUS SO4 325 MG TABLET (FP) PO SCH ×2 (09:59→22:09)
[2017-01-23] MEDS: PARoxetine HCL 10 MG TABLET (FP) PO SCH (09:59)
[2017-01-23] MEDS: METOPROLOL TARTRATE 50 MG TABLET (FP) PO SCH ×2 (09:59→22:09)
[2017-01-23 10:00] LABS: BASOPHIL 0.8 % (0-2.0); EOSINOPHIL 2.2 % (0-4.5); MCH 25.2 pg (25.7-33.7); MCHC 31.8 g/dl (32.0-35.9); MEAN CELL VOLUME 79.2 fl (80-96); MEAN PLT VOLUME 7.7 fl (7.5-11.1); NEUTROPHILS 51.7 % (42.8-82.8); PLATELET COUNT 256 K/MM3 (134-434); RDW 15.5 % (11.9-15.9); WHITE BLOOD COUNT 2.8 K/mm3 (4.0-10.8)
[2017-01-23] MEDS: RANITIDINE HCL 150 MG TABLET (FP) PO SCH (10:00)
[2017-01-23] MEDS: ENOXAPARIN NA (PORCINE) 40 MG/0.4 ML DISP.SYRIN SQ SCH (10:01)
[2017-01-23 10:08] LABS: ALBUMIN 2.6 g/dl (3.5-5.0); BILIRUBIN,TOTAL 1.1 mg/dl (0.2-1.0); CALCIUM 8.7 mg/dl (8.4-10.2); COCKROFT - GAULT 85.85; CREATININE 1.2 mg/dl (0.6-1.3); MAGNESIUM 1.6 mg/dL (1.8-2.4); TOT PROT 6.7 g/dl (6.4-8.3)
[2017-01-23] MEDS ORDERED: MAGNESIUM SULFATE 2 GM in SODIUM CHLORIDE 100 ML IVPB ONE (10:17)
--- NOTE | 2017-01-23 10:37 | PN ---
Progress Note, Physician History of Present Illness: Awake, alert No c/o knee pain No fever/ chills Blood, synovial fluid c/s prelim no growth - Current Medication List Current Medications: Active Medications Acetaminophen (Tylenol -) 650 mg PO Q6H PRN PRN Reason: FEVER OR PAIN Last Admin: 01/21/17 18:31 Dose: 650 mg Aspirin (Asa -) 81 mg PO DAILY [facility] Last Admin: 01/23/17 09:59 Dose: 81 mg Atorvastatin Calcium (Lipitor -) 20 mg PO HS [facility] Last Admin: 01/22/17 21:09 Dose: 20 mg Docusate Sodium (Colace -) 100 mg PO BID [facility] Last Admin: 01/23/17 09:59 Dose: 100 mg Enoxaparin Sodium (Lovenox -) 40 mg SQ DAILY [facility] Last Admin: 01/23/17 10:01 Dose: 40 mg Fentanyl (Sublimaze Injection -) 50 mcg IVPUSH [id number] PRN PRN Reason: PAIN Stop: 01/23/17 22:51 Ferrous Sulfate (Feosol -) 325 mg PO BID [facility] Last Admin: 01/23/17 09:59 Dose: 325 mg Hydrochlorothiazide (Hctz -) 25 mg PO DAILY [facility] Last Admin: 01/23/17 09:59 Dose: 25 mg Insulin Aspart (Novolog Vial Sliding Scale -) 1 vial SQ ACHS [facility] PRN Reason: Protocol Last Admin: 01/23/17 06:12 Dose: Not Given Losartan Potassium (Cozaar -) 100 mg PO DAILY [facility] Last Admin: 01/23/17 09:59 Dose: 100 mg Magnesium Sulfate (Magnesium Sulfate) 2 gm IVPB ONCE ONE Stop: 01/23/17 11:01 Metoprolol Tartrate (Lopressor -) 50 mg PO BID [facility] Last Admin: 01/23/17 09:59 Dose: 50 mg Oxycodone/Acetaminophen (Percocet 5/325 -) 2 combo PO Q6H PRN PRN Reason: PAIN LEVEL 6-10 Paroxetine HCl (Paxil -) 10 mg PO DAILY [facility] Last Admin: 01/23/17 09:59 Dose: 10 mg Piperacillin Sod/Tazobactam Sod (Zosyn 3.375gm Ivpb (Pre-Docked)) 3.375 gm IVPB Q8H-IV [facility] PRN Reason: Protocol Last Admin: 01/23/17 10:01 Dose: 3.375 gm Ranitidine HCl (Zantac -) 150 mg PO DAILY [facility] Last Admin: 01/23/17 10:00 Dose: 150 mg Vancomycin HCl (Vancomycin (Pre-Docked)) 1,000 mg IVPB DAILY [facility] PRN Reason: Protocol Last Admin: 01/23/17 09:00 Dose: 1,000 mg - Objective Vital Signs: Vital Signs Temperature 98.6 F 01/23/17 06:00 Pulse Rate 97 H 01/23/17 06:00 Respiratory Rate 18 01/23/17 08:21 Blood Pressure 123/76 01/23/17 06:00 O2 Sat by Pulse Oximetry (%) 97 01/23/17 08:21 Constitutional: Yes: No Distress Eyes: Yes: Conjunctiva Clear Cardiovascular: Yes: Regular Rate and Rhythm, S1, S2 Respiratory: Yes: CTA Bilaterally Gastrointestinal: Yes: Normal Bowel Sounds, Soft, Tenderness Extremities: Yes: Other (L Knee surgical wound well- healed No erythema/ drainage R knee post operative dressing in place) Labs: CBC, BMP 01/23/17 07:22 01/23/17 07:22 Assessment/Plan S/P washout R knee Cultures prelim negative Septic arthritits L knee on vancomycin Await c/s Continue empiric zosyn/ vancomycin
[2017-01-23] MEDS ORDERED: MAGNESIUM SULF 50% (8.12 MEQ/2 ML-1 GM VIAL) IVPB ONE (11:00)
--- NOTE | 2017-01-23 11:31 | PN ---
Physical Exam: SUBJECTIVE: Patient seen and examined, patient reports feeling better, reports pain upon movement of his right lower extremity, patient denies any paresthesia. 40ml from ANDREW drain OBJECTIVE: patient is a 71 y/o male with a PMHx of HTN, HLD, CAD, NIDDM, left TKR, s/p left knee debridement 12/14/16. Patient was admitted from the emergency department for right knee septic Knee Joint s/p ID (01/20/17). Vital Signs Period Temp Pulse Resp BP Sys/Taylor Pulse Ox Last 24 Hr 98.3 F-98.6 F 66-97 16-18 112-124/52-76 97-100 PHYSICAL EXAMINATION GENERAL: The patient is awake, alert, and fully oriented, in no acute distress. HEAD: Normal with no signs of trauma. EYES: PERRL, extraocular movements intact, sclera anicteric, conjunctiva clear. No ptosis. ENT: Ears normal, nares patent, oropharynx clear without exudates, moist mucous membranes. NECK: Trachea midline, full range of motion, supple. LUNGS: Breath sounds equal, clear to auscultation bilaterally, no wheezes, no crackles, no accessory muscle use. HEART: Regular rate and rhythm, S1, S2 without murmur, rub or gallop. ABDOMEN: Soft, nontender, nondistended, normoactive bowel sounds, no guarding, no rebound, no hepatosplenomegaly, no masses. EXTREMITIES: 2+ pulses, warm, well-perfused, no edema. left knee, immobilzer in place, well healed surgical site RIGHT LOWER EXTREMITY: surgical site--sutures intact, no erythema, no induration , ANDREW serrous sanguineous drainage, less than 3 second capillary refill, + 3 pedal pulse. NEUROLOGICAL: Cranial nerves II through XII grossly intact. Normal speech, gait not observed. PSYCH: Normal mood, normal affect. SKIN: Warm, dry, normal turgor, no rashes or lesions noted Laboratory Results - last 24 hr CBC WBC 2.8 K/mm3 (4.0-10.8) L 01/23/17 07:22 RBC 3.39 M/mm3 (4.00-5.60) L 01/23/17 07:22 Hgb 8.5 GM/dl (11.7-16.9) L 01/23/17 07:22 Hct 26.9 % (35.4-49) L 01/23/17 07:22 MCV 79.2 fl (80-96) L 01/23/17 07:22 MCHC 31.8 g/dl (32.0-35.9) L 01/23/17 07:22 RDW 15.5 % (11.9-15.9) 01/23/17 07:22 Plt Count 256 K/MM3 (134-434) 01/23/17 07:22 MPV 7.7 fl (7.5-11.1) 01/23/17 07:22 Neutrophils % 51.7 % (42.8-82.8) 01/23/17 07:22 Lymphocytes % 24.0 % (8-40) 01/23/17 07:22 Monocytes % 21.3 % (3.8-10.2) H 01/23/17 07:22 Eosinophils % 2.2 % (0-4.5) 01/23/17 07:22 Basophils % 0.8 % (0-2.0) 01/23/17 07:22 Band Neutrophils 6.0 % (0-10) D 01/22/17 07:21 Reactive Lymphocytes 8 % (0-80) 01/20/17 14:42 Platelet Estimate Adequate (NORMAL) 01/20/17 14:42 Platelet Comment Few large plts 01/20/17 14:42 Anisocytosis 2+ 01/20/17 14:42 Macrocytosis 1+ 01/20/17 14:42 Tear Drop Cells 1+ 01/20/17 14:42 Ovalocytes 1+ 01/20/17 14:42 Acanthocytes (Spur) 1+ 01/20/17 14:42 ESR 123 mm/hr (0-20) H 01/20/17 14:42 Retic Count 1.50 % (0.5-1.5) 01/22/17 07:21 CMP Sodium 135 mmol/L (136-145) L 01/23/17 07:22 Potassium 3.8 mmol/L (3.5-5.1) 01/23/17 07:22 Chloride 99 mmol/L (98-107) 01/23/17 07:22 Carbon Dioxide 27 mmol/L (22-28) 01/23/17 07:22 Anion Gap 9 (8-16) 01/23/17 07:22 BUN 18 mg/dl (7-18) 01/23/17 07:22 Creatinine 1.2 mg/dl (0.6-1.3) 01/23/17 07:22 Creat Clearance w eGFR 59.68 (>60) 01/23/17 07:22 POC Glucometer 186 UNITS (()) 01/23/17 11:42 Random Glucose 149 mg/dl (74-106) H 01/23/17 07:22 Lactic Acid 1.7 mmol/L (0.4-2.0) 01/20/17 15:00 Calcium 8.7 mg/dl (8.4-10.2) 01/23/17 07:22 Magnesium 1.6 mg/dL (1.8-2.4) L 01/23/17 07:22 Iron 25 ug/dL (38-169) L 01/22/17 07:21 TIBC 176 ug/dL (250-450) L 01/22/17 07:21 Iron Saturation 14 % (15-55) L 01/22/17 07:21 Ferritin 904.271 ng/ml (16.4-293.9) H 01/22/17 07:21 Total Bilirubin 1.1 mg/dl (0.2-1.0) H D 01/23/17 07:22 AST 21 U/L (10-42) D 01/23/17 07:22 ALT 27 U/L (10-40) D 01/23/17 07:22 Alkaline Phosphatase 63 U/L (32-92) 01/23/17 07:22 C-Reactive Protein 16.9 MG/DL (0.00-0.3) H D 01/20/17 14:42 Total Protein 6.7 g/dl (6.4-8.3) 01/23/17 07:22 Albumin 2.6 g/dl (3.5-5.0) L 01/23/17 07:22 Active Medications Generic Name Dose Route Start Last Admin Trade Name Freq PRN Reason Stop Dose Admin Acetaminophen 650 mg 01/21/17 18:24 01/21/17 18:31 Tylenol - PO 650 mg Q6H PRN Administration FEVER OR PAIN Aspirin 81 mg 01/21/17 10:00 01/23/17 09:59 Asa - PO 81 mg DAILY NEHEMIAS Administration Atorvastatin Calcium 20 mg 01/21/17 22:00 01/22/17 21:09 Lipitor - PO 20 mg HS NEHEMIAS Administration Docusate Sodium 100 mg 01/21/17 10:00 01/23/17 09:59 Colace - PO 100 mg BID NEHEMIAS Administration Enoxaparin Sodium 40 mg 01/21/17 10:00 01/23/17 10:01 Lovenox - SQ 40 mg DAILY NEHEMIAS Administration Fentanyl 50 mcg 01/20/17 22:50 Sublimaze Injection - IVPUSH 01/23/17 22:51 [id number] PRN PAIN Ferrous Sulfate 325 mg 01/21/17 10:00 01/23/17 09:59 Feosol - PO 325 mg BID NEHEMIAS Administration Hydrochlorothiazide 25 mg 01/21/17 10:00 01/23/17 09:59 Hctz - PO 25 mg DAILY NEHEMIAS Administration Insulin Aspart 1 vial 01/21/17 07:00 01/23/17 06:12 Novolog Vial Sliding Scale - SQ Not Given ACHS [facility] Protocol Losartan Potassium 100 mg 01/21/17 10:00 01/23/17 09:59 Cozaar - PO 100 mg DAILY NEHEMIAS Administration Metoprolol Tartrate 50 mg 01/21/17 10:00 01/23/17 09:59 Lopressor - PO 50 mg BID NEHEMIAS Administration Oxycodone/Acetaminophen 2 combo 01/21/17 00:30 Percocet 5/325 - PO Q6H PRN PAIN LEVEL 6-10 Paroxetine HCl 10 mg 01/21/17 10:00 01/23/17 09:59 Paxil - PO 10 mg DAILY NEHEMIAS Administration Piperacillin Sod/Tazobactam Sod 3.375 gm 01/21/17 12:45 01/23/17 10:01 Zosyn 3.375gm Ivpb (Pre-Docked) IVPB 3.375 gm Q8H-IV NEHEMIAS Administration Protocol Ranitidine HCl 150 mg 01/22/17 14:00 01/23/17 10:00 Zantac - PO 150 mg DAILY NEHEMIAS Administration Vancomycin HCl 1,000 mg 01/21/17 17:00 01/23/17 09:00 Vancomycin (Pre-Docked) IVPB 1,000 mg DAILY NEHEMIAS Administration Protocol Microbiology 01/20/17 10:00 Synovial Fluid - Knee Gram Stain - Final 01/20/17 10:00 Synovial Fluid - Knee Body Fluid Culture - Preliminary NO AEROBIC GROWTH, 24 HRS 01/20/17 10:00 Synovial Fluid - Knee Anaerobic Culture - Final NO ANAEROBES WERE ISOLATED 01/20/17 10:00 Synovial Fluid - Knee Gram Stain - Final 01/20/17 10:00 Synovial Fluid - Knee Body Fluid Culture - Preliminary NO AEROBIC GROWTH, 24 HRS 01/20/17 10:00 Synovial Fluid - Knee Anaerobic Culture - Final NO ANAEROBES WERE ISOLATED 01/20/17 17:30 Synovial Fluid - Knee Gram Stain - Final 01/20/17 17:30 Synovial Fluid - Knee Body Fluid Culture - Preliminary NO AEROBIC GROWTH, 24 HRS 01/20/17 17:30 Synovial Fluid - Knee Anaerobic Culture - Final NO ANAEROBES WERE ISOLATED 01/20/17 19:31 Blood - Peripheral Venous Blood Culture - Preliminary NO GROWTH OBTAINED AFTER 48 HOURS, INCUBATION TO CONTINUE FOR 3 DAYS. 01/20/17 19:00 Blood - Peripheral Venous Blood Culture - Preliminary NO GROWTH OBTAINED AFTER 48 HOURS, INCUBATION TO CONTINUE FOR 3 DAYS. 01/20/17 14:42 Blood - Peripheral Venous Blood Culture - Preliminary NO GROWTH OBTAINED AFTER 48 HOURS, INCUBATION TO CONTINUE FOR 3 DAYS. 01/20/17 14:42 Blood - Peripheral Venous Blood Culture - Preliminary NO GROWTH OBTAINED AFTER 48 HOURS, INCUBATION TO CONTINUE FOR 3 DAYS. ASSESSMENT/PLAN: 1. ortho: s/p right knee I&D, septic arthritis - blood and synovial cultures, negative to date - pt remains afebrile no leukocytosis noted - continue zosyn and vancomycin, monitor vanc trough - echo reviewed, no vegetation noted. - ortho consulted and following - ID (Felipe) consulted and followed 2) card hypertension - continue loosartan, lopressor, hctz - b/p at goal hyperlipidemia - continue lipitor CAD - CABAG x 5 (2006) - echo (01/23/17) grade I diastolic dysfunction, LV WNL 3) heme microcytic anemia - hgb 8.5 baseline 11.9 - iron studies reviewed, likely anemia of chronic inflammation and disease - pt neutropenic, likely secondary to infection vs antibiotic, vancomycin - strict monitoring, repeat cbc in am 4) endo NIDDM - continue fingersticks achs, regular insulin sliding scale f/e/n - low sodium, diabetic diet - replete magnesium ppx - oob - scd/milo - pt - lovenox - zantac dispo:requires inpatient care Visit type - Emergency Visit Emergency Visit: Yes ED Registration Date: 01/20/17 Care time: The patient presented to the Emergency Department on the above date and was hospitalized for further evaluation of their emergent condition. - New Patient This patient is new to me today: No - Critical Care Critical Care patient: No - Discharge Referral Referred to [facility] Med P.C.: No
[2017-01-23] MEDS ORDERED: INSULIN (NOVOLOG) ASPART 100 UNITS/ML 10ML VIAL ONE (12:13)
--- NOTE | 2017-01-23 12:31 | PN ---
Progress Note (short form) - Note Progress Note: feeling well. No new complaints. Wounds look good. No significant swelling except minimal at RIGHT knee. No warmth. No erythema. Drain still putting out serosanguineous fluid Cultures negative to date, Lyme pending Impression status post RIGHT knee irrigation and debridement, question etiology of RIGHT knee swelling Plan: Continue antibiotics per infectious disease. Await final cultures and lab tests. Per Dr. Viveros he may start weaning out of his LEFT knee immobilizer when supervised with physical therapy.
[2017-01-23] MEDS: LACTOBACILLUS ACIDOPHILUS 1 EACH TAB (FP) PO SCH (14:00)
--- NOTE | 2017-01-23 20:15 | PN ---
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 soft knee nontender CBC WBC 2.8 K/mm3 (4.0-10.8) L 01/23/17 07:22 RBC 3.39 M/mm3 (4.00-5.60) L 01/23/17 07:22 Hgb 8.5 GM/dl (11.7-16.9) L 01/23/17 07:22 Hct 26.9 % (35.4-49) L 01/23/17 07:22 MCV 79.2 fl (80-96) L 01/23/17 07:22 MCHC 31.8 g/dl (32.0-35.9) L 01/23/17 07:22 RDW 15.5 % (11.9-15.9) 01/23/17 07:22 Plt Count 256 K/MM3 (134-434) 01/23/17 07:22 MPV 7.7 fl (7.5-11.1) 01/23/17 07:22 Neutrophils % 51.7 % (42.8-82.8) 01/23/17 07:22 Lymphocytes % 24.0 % (8-40) 01/23/17 07:22 Monocytes % 21.3 % (3.8-10.2) H 01/23/17 07:22 Eosinophils % 2.2 % (0-4.5) 01/23/17 07:22 Basophils % 0.8 % (0-2.0) 01/23/17 07:22 Band Neutrophils 6.0 % (0-10) D 01/22/17 07:21 Reactive Lymphocytes 8 % (0-80) 01/20/17 14:42 Platelet Estimate Adequate (NORMAL) 01/20/17 14:42 Platelet Comment Few large plts 01/20/17 14:42 Anisocytosis 2+ 01/20/17 14:42 Macrocytosis 1+ 01/20/17 14:42 Tear Drop Cells 1+ low cyto 01/20/17 14:42 Ovalocytes 1+ 01/20/17 14:42 Acanthocytes (Spur) 1+ 01/20/17 14:42 ESR 123 mm/hr (0-20) H 01/20/17 14:42 Retic Count 1.50 % (0.5-1.5) 01/22/17 07:21 wbc appears to be slowly increasing etiology of drop questpion sepsis issues are why develop a septic joint with no clear cause is pt possibly immunocomprimised . will follow course if no response in neutropenia consider flow cytometry and possibly bone marrow
[2017-01-23] MEDS: ATORVASTATIN CA 20 MG TABLET (FP) PO SCH (22:09)
[2017-01-24] MEDS: PIPERACILLIN/TAZOB 3.375 GM/50 ML PRE-DOCKED IVPB SCH (01:38)
[2017-01-24] MEDS: INSULIN SLIDING SCALE (NOVOLOG) 1 VIAL SQ SCH ×4 (06:16→21:31)
[2017-01-24 08:41] LABS: LDH 102 U/L (91-180)
[2017-01-24] MEDS: DOCUSATE SODIUM 100 MG CAPSULE (FP) PO SCH ×2 (09:05→21:35)
[2017-01-24] MEDS: ASPIRIN 81 MG CHEWABLE TABLETS PO SCH (09:05)
[2017-01-24] MEDS: HYDROCHLOROTHIAZIDE 25 MG TABLET (FP) PO SCH (09:05)
[2017-01-24] MEDS: LOSARTAN POTASSIUM 50 MG TABLET (FP) PO SCH (09:05)
[2017-01-24] MEDS: FERROUS SO4 325 MG TABLET (FP) PO SCH ×2 (09:05→21:35)
[2017-01-24] MEDS: LACTOBACILLUS ACIDOPHILUS 1 EACH TAB (FP) PO SCH (09:05)
[2017-01-24] MEDS: ENOXAPARIN NA (PORCINE) 40 MG/0.4 ML DISP.SYRIN SQ SCH (09:06)
[2017-01-24] MEDS: PARoxetine HCL 10 MG TABLET (FP) PO SCH (09:06)
[2017-01-24] MEDS: METOPROLOL TARTRATE 50 MG TABLET (FP) PO SCH ×2 (09:06→21:35)
[2017-01-24] MEDS: RANITIDINE HCL 150 MG TABLET (FP) PO SCH (09:06)
[2017-01-24] MEDS: VANCOMYCIN 1 GRAM (PRE-DOCKED) 1,000 MG/250 ML BAG IVPB SCH (09:07)
--- NOTE | 2017-01-24 09:26 | PN ---
Progress Note, Physician History of Present Illness: Awake, alert No c/o knee pain No fever/ chills Remains afebrile, leukopenic Completing 6w course vancomycin for L knee infection - Current Medication List Current Medications: Active Medications Acetaminophen (Tylenol -) 650 mg PO Q6H PRN PRN Reason: FEVER OR PAIN Last Admin: 01/21/17 18:31 Dose: 650 mg Aspirin (Asa -) 81 mg PO DAILY [facility] Last Admin: 01/24/17 09:05 Dose: 81 mg Atorvastatin Calcium (Lipitor -) 20 mg PO HS [facility] Last Admin: 01/23/17 22:09 Dose: 20 mg Docusate Sodium (Colace -) 100 mg PO BID [facility] Last Admin: 01/24/17 09:05 Dose: 100 mg Enoxaparin Sodium (Lovenox -) 40 mg SQ DAILY [facility] Last Admin: 01/24/17 09:06 Dose: 40 mg Ferrous Sulfate (Feosol -) 325 mg PO BID [facility] Last Admin: 01/24/17 09:05 Dose: 325 mg Hydrochlorothiazide (Hctz -) 25 mg PO DAILY [facility] Last Admin: 01/24/17 09:05 Dose: 25 mg Insulin Aspart (Novolog Vial Sliding Scale -) 1 vial SQ ACHS [facility] PRN Reason: Protocol Last Admin: 01/24/17 06:16 Dose: 2 units Lactobacillus Acidophilus (Bacid -) 1 tab PO DAILY [facility] Last Admin: 01/24/17 09:05 Dose: 1 tab Losartan Potassium (Cozaar -) 100 mg PO DAILY [facility] Last Admin: 01/24/17 09:05 Dose: 100 mg Metoprolol Tartrate (Lopressor -) 50 mg PO BID [facility] Last Admin: 01/24/17 09:06 Dose: 50 mg Oxycodone/Acetaminophen (Percocet 5/325 -) 2 combo PO Q6H PRN PRN Reason: PAIN LEVEL 6-10 Paroxetine HCl (Paxil -) 10 mg PO DAILY [facility] Last Admin: 01/24/17 09:06 Dose: 10 mg Piperacillin Sod/Tazobactam Sod (Zosyn 3.375gm Ivpb (Pre-Docked)) 3.375 gm IVPB Q8H-IV NEHEMIAS PRN Reason: Protocol Last Admin: 01/24/17 01:38 Dose: 3.375 gm Ranitidine HCl (Zantac -) 150 mg PO DAILY [facility] Last Admin: 01/24/17 09:06 Dose: 150 mg Vancomycin HCl (Vancomycin (Pre-Docked)) 1,000 mg IVPB DAILY [facility] PRN Reason: Protocol Last Admin: 01/24/17 09:07 Dose: 1,000 mg - Objective Vital Signs: Vital Signs Temperature 98.7 F 01/24/17 06:00 Pulse Rate 66 01/24/17 06:00 Respiratory Rate 18 01/24/17 08:52 Blood Pressure 116/62 01/24/17 06:00 O2 Sat by Pulse Oximetry (%) 97 01/24/17 08:52 Constitutional: Yes: No Distress Eyes: Yes: Conjunctiva Clear Cardiovascular: Yes: Regular Rate and Rhythm, S1 Respiratory: Yes: CTA Bilaterally Gastrointestinal: Yes: Normal Bowel Sounds, Soft. No: Tenderness Extremities: Yes: Other (L knee wound healed. No erythema/ warmth/ swelling R knee swollen. No erythema/ warmth ANDREW drain- bloody fluid) Labs: CBC, BMP 01/23/17 07:22 01/23/17 07:22 Assessment/Plan S/P washout R knee Cultures negative. ? Non-infectious etiology Septic arthritits L knee - completing 6 w course vancomycin Leukopenia- possibly secondary to vancomycin Will D/C antibiotics, observe Discharge home off antibiotics when cleared by ortho Outpatient rheumatology evaluation
[2017-01-24] MEDS ORDERED: INSULIN (NOVOLOG) ASPART 100 UNITS/ML 10ML VIAL ONE (11:30)
[2017-01-24] MEDS ORDERED: PICC LINE 8 ML FLUSH PROTOCOL IVPUSH ONE (13:32)
--- NOTE | 2017-01-24 13:33 | PN ---
Physical Exam: SUBJECTIVE: Patient seen and examined, reports feeling well, denies any pain or tactile fever. reports minimal pain to the right lower extremity upon movement. OBJECTIVE: patient is a 71 y/o male with a PMHx of HTN, HLD, CAD, NIDDM, left TKR, s/p left knee debridement 12/14/16. Patient was admitted from the emergency department for right knee septic Knee Joint s/p ID (01/20/17). Vital Signs Period Temp Pulse Resp BP Sys/Taylor Pulse Ox Last 24 Hr 98.0 F-98.7 F 61-80 18-18 98-129/55-69 97-100 GENERAL: The patient is awake, alert, and fully oriented, in no acute distress. HEAD: Normal with no signs of trauma. EYES: PERRL, extraocular movements intact, sclera anicteric, conjunctiva clear. No ptosis. ENT: Ears normal, nares patent, oropharynx clear without exudates, moist mucous membranes. NECK: Trachea midline, full range of motion, supple. LUNGS: Breath sounds equal, clear to auscultation bilaterally, no wheezes, no crackles, no accessory muscle use. HEART: Regular rate and rhythm, S1, S2 without murmur, rub or gallop. ABDOMEN: Soft, nontender, nondistended, normoactive bowel sounds, no guarding, no rebound, no hepatosplenomegaly, no masses. EXTREMITIES: 2+ pulses, warm, well-perfused, no edema. left lower extremity, steri strips in place,wound well approximate RIGHT LOWER EXTREMITY: surgical site--sutures intact, no erythema, no induration , ANDREW serrous sanguineous drainage, less than 3 second capillary refill, + 3 pedal pulse. NEUROLOGICAL: Cranial nerves II through XII grossly intact. Normal speech, gait not observed. PSYCH: Normal mood, normal affect. SKIN: Warm, dry, normal turgor, no rashes or lesions noted Laboratory Results - last 24 hr 01/22/17 01/23/17 01/23/17 07:21 16:14 22:08 POC Glucometer 146 148 Magnesium LD Total Lyme Screen IgG & IgM <0.91 01/24/17 01/24/17 01/24/17 06:02 07:00 10:50 POC Glucometer 156 Magnesium 1.8 LD Total 102 Lyme Screen IgG & IgM 01/24/17 11:28 POC Glucometer 181 Magnesium LD Total Lyme Screen IgG & IgM Active Medications Generic Name Dose Route Start Last Admin Trade Name Derick PRN Reason Stop Dose Admin Acetaminophen 650 mg 01/21/17 18:24 01/21/17 18:31 Tylenol - PO 650 mg Q6H PRN Administration FEVER OR PAIN Aspirin 81 mg 01/21/17 10:00 01/24/17 09:05 Asa - PO 81 mg DAILY NEHEMIAS Administration Atorvastatin Calcium 20 mg 01/21/17 22:00 01/23/17 22:09 Lipitor - PO 20 mg HS NEHEMIAS Administration Docusate Sodium 100 mg 01/21/17 10:00 01/24/17 09:05 Colace - PO 100 mg BID NEHEMIAS Administration Enoxaparin Sodium 40 mg 01/21/17 10:00 01/24/17 09:06 Lovenox - SQ 40 mg DAILY NEHEMIAS Administration Ferrous Sulfate 325 mg 01/21/17 10:00 01/24/17 09:05 Feosol - PO 325 mg BID NEHEMIAS Administration Hydrochlorothiazide 25 mg 01/21/17 10:00 01/24/17 09:05 Hctz - PO 25 mg DAILY NEHEMIAS Administration Insulin Aspart 1 vial 01/21/17 07:00 01/24/17 06:16 Novolog Vial Sliding Scale - SQ 2 units ACHS NEHEMIAS Administration Protocol Lactobacillus Acidophilus 1 tab 01/23/17 13:45 01/24/17 09:05 Bacid - PO 1 tab DAILY NEHEMIAS Administration Losartan Potassium 100 mg 01/21/17 10:00 01/24/17 09:05 Cozaar - PO 100 mg DAILY NEHEMIAS Administration Metoprolol Tartrate 50 mg 01/21/17 10:00 01/24/17 09:06 Lopressor - PO 50 mg BID NEHEMIAS Administration Oxycodone/Acetaminophen 2 combo 01/21/17 00:30 Percocet 5/325 - PO Q6H PRN PAIN LEVEL 6-10 Paroxetine HCl 10 mg 01/21/17 10:00 01/24/17 09:06 Paxil - PO 10 mg DAILY NEHEMIAS Administration Ranitidine HCl 150 mg 01/22/17 14:00 01/24/17 09:06 Zantac - PO 150 mg DAILY NEHEMIAS Administration Microbiology 01/20/17 19:31 Blood - Peripheral Venous Blood Culture - Preliminary NO GROWTH OBTAINED AFTER 72 HOURS, INCUBATION TO CONTINUE FOR 2 DAYS. 01/20/17 19:00 Blood - Peripheral Venous Blood Culture - Preliminary NO GROWTH OBTAINED AFTER 72 HOURS, INCUBATION TO CONTINUE FOR 2 DAYS. 01/20/17 14:42 Blood - Peripheral Venous Blood Culture - Preliminary NO GROWTH OBTAINED AFTER 72 HOURS, INCUBATION TO CONTINUE FOR 2 DAYS. 01/20/17 14:42 Blood - Peripheral Venous Blood Culture - Preliminary NO GROWTH OBTAINED AFTER 72 HOURS, INCUBATION TO CONTINUE FOR 2 DAYS. 01/20/17 17:30 Synovial Fluid - Knee Gram Stain - Final 01/20/17 17:30 Synovial Fluid - Knee Body Fluid Culture - Final NO GROWTH OF AEROBIC ORGANISMS AFTER 48 HOURS INCUBATION 01/20/17 17:30 Synovial Fluid - Knee Anaerobic Culture - Final NO ANAEROBES WERE ISOLATED 01/20/17 10:00 Synovial Fluid - Knee Gram Stain - Final 01/20/17 10:00 Synovial Fluid - Knee Body Fluid Culture - Final NO GROWTH OF AEROBIC ORGANISMS AFTER 48 HOURS INCUBATION 01/20/17 10:00 Synovial Fluid - Knee Anaerobic Culture - Final NO ANAEROBES WERE ISOLATED 01/20/17 10:00 Synovial Fluid - Knee Gram Stain - Final 01/20/17 10:00 Synovial Fluid - Knee Body Fluid Culture - Final NO GROWTH OF AEROBIC ORGANISMS AFTER 48 HOURS INCUBATION 01/20/17 10:00 Synovial Fluid - Knee Anaerobic Culture - Final NO ANAEROBES WERE ISOLATED ASSESSMENT/PLAN: 1. ortho: s/p right knee I&D, septic arthritis - blood and synovial cultures, negative to date - pt remains afebrile no leukocytosis noted - observe off abx, zosyn and vanc d/c as per ID (Felipe) - echo reviewed, no vegetation noted. - ortho consulted and following - ID (Felipe) consulted and followed 2) card hypertension - continue loosartan, lopressor, hctz - b/p at goal hyperlipidemia - continue lipitor CAD - CABAG x 5 (2006) - echo (01/23/17) grade I diastolic dysfunction, LV WNL, no vegetation 3) heme microcytic anemia - hgb 8.5 baseline 11.9 - iron studies reviewed, likely anemia of chronic inflammation and disease - pt neutropenic, likely secondary to infection vs antibiotic (vancomycin), - strict monitoring, repeat cbc in am 4) endo NIDDM - continue fingersticks achs, regular insulin sliding scale f/e/n - low sodium, diabetic diet ppx - oob - scd/milo - pt - lovenox - zantac dispo:requires inpatient care, discharge once cleared by ortho Visit type - Emergency Visit Emergency Visit: Yes ED Registration Date: 01/20/17 Care time: The patient presented to the Emergency Department on the above date and was hospitalized for further evaluation of their emergent condition. - New Patient This patient is new to me today: No - Critical Care Critical Care patient: No - Discharge Referral Referred to [facility] Med P.C.: No
--- NOTE | 2017-01-24 15:31 | PN ---
Progress Note (short form) - Note Progress Note: patient without complaints. Afebrile right knee exams shows no redness or warmth. The knee is swollen. The ANDREW is draining bloody drainage. No purulence. The drain was pulled as per Dr. Walter. Neurovascularly intact distally. Cultures negative. Impression Right knee status post I&D. Cultures are negative. We will monitor how the knee does over the next 24 hours. Plan as per Dr. Walter.
[2017-01-24] MEDS: ATORVASTATIN CA 20 MG TABLET (FP) PO SCH (21:35)
[2017-01-24] MEDS: ACETAMINOPHEN 325 MG TABLET (FP) PO PRN (23:26)
[2017-01-25] MEDS ORDERED: INSULIN (NOVOLOG) ASPART 100 UNITS/ML 10ML VIAL ONE ×2 (06:24→16:00)
[2017-01-25] MEDS: INSULIN SLIDING SCALE (NOVOLOG) 1 VIAL SQ SCH ×5 (06:28→22:05)
[2017-01-25] MEDS: ACETAMINOPHEN 325 MG TABLET (FP) PO PRN ×2 (07:39→19:50)
[2017-01-25] MEDS: PARoxetine HCL 10 MG TABLET (FP) PO SCH (09:23)
[2017-01-25] MEDS: LOSARTAN POTASSIUM 50 MG TABLET (FP) PO SCH (09:23)
[2017-01-25] MEDS: ASPIRIN 81 MG CHEWABLE TABLETS PO SCH (09:23)
[2017-01-25] MEDS: HYDROCHLOROTHIAZIDE 25 MG TABLET (FP) PO SCH (09:23)
[2017-01-25] MEDS: FERROUS SO4 325 MG TABLET (FP) PO SCH ×2 (09:23→21:57)
[2017-01-25] MEDS: METOPROLOL TARTRATE 50 MG TABLET (FP) PO SCH ×2 (09:23→21:57)
[2017-01-25] MEDS: DOCUSATE SODIUM 100 MG CAPSULE (FP) PO SCH ×2 (09:23→21:57)
[2017-01-25] MEDS: RANITIDINE HCL 150 MG TABLET (FP) PO SCH (09:23)
[2017-01-25] MEDS: ENOXAPARIN NA (PORCINE) 40 MG/0.4 ML DISP.SYRIN SQ SCH (09:24)
[2017-01-25] MEDS: LACTOBACILLUS ACIDOPHILUS 1 EACH TAB (FP) PO SCH (09:28)
--- NOTE | 2017-01-25 10:25 | PN ---
Progress Note, Physician History of Present Illness: Awake, alert No c/o knee pain No fever/ chills Blood and synovial fluid c/s (-) - Current Medication List Current Medications: Active Medications Acetaminophen (Tylenol -) 650 mg PO Q6H PRN PRN Reason: FEVER OR PAIN Last Admin: 01/25/17 07:39 Dose: 650 mg Aspirin (Asa -) 81 mg PO DAILY [facility] Last Admin: 01/25/17 09:23 Dose: 81 mg Atorvastatin Calcium (Lipitor -) 20 mg PO HS [facility] Last Admin: 01/24/17 21:35 Dose: 20 mg Docusate Sodium (Colace -) 100 mg PO BID [facility] Last Admin: 01/25/17 09:23 Dose: 100 mg Enoxaparin Sodium (Lovenox -) 40 mg SQ DAILY [facility] Last Admin: 01/25/17 09:24 Dose: 40 mg Ferrous Sulfate (Feosol -) 325 mg PO BID [facility] Last Admin: 01/25/17 09:23 Dose: 325 mg Hydrochlorothiazide (Hctz -) 25 mg PO DAILY [facility] Last Admin: 01/25/17 09:23 Dose: 25 mg Insulin Aspart (Novolog Vial Sliding Scale -) 1 vial SQ ACHS [facility] PRN Reason: Protocol Last Admin: 01/25/17 09:29 Dose: Not Given Lactobacillus Acidophilus (Bacid -) 1 tab PO DAILY [facility] Last Admin: 01/25/17 09:28 Dose: 1 tab Losartan Potassium (Cozaar -) 100 mg PO DAILY [facility] Last Admin: 01/25/17 09:23 Dose: 100 mg Metoprolol Tartrate (Lopressor -) 50 mg PO BID [facility] Last Admin: 01/25/17 09:23 Dose: 50 mg Oxycodone/Acetaminophen (Percocet 5/325 -) 2 combo PO Q6H PRN PRN Reason: PAIN LEVEL 6-10 Paroxetine HCl (Paxil -) 10 mg PO DAILY [facility] Last Admin: 01/25/17 09:23 Dose: 10 mg Ranitidine HCl (Zantac -) 150 mg PO DAILY [facility] Last Admin: 01/25/17 09:23 Dose: 150 mg - Objective Vital Signs: Vital Signs Temperature 98.9 F 01/25/17 09:00 Pulse Rate 70 01/25/17 09:00 Respiratory Rate 18 01/25/17 09:00 Blood Pressure 102/52 01/25/17 09:00 O2 Sat by Pulse Oximetry (%) 100 01/25/17 09:00 Constitutional: Yes: No Distress Cardiovascular: Yes: Regular Rate and Rhythm, S1, S2 Respiratory: Yes: CTA Bilaterally Gastrointestinal: Yes: Normal Bowel Sounds, Soft. No: Tenderness Extremities: Yes: Other (L knee surgical wound healed No erythema/ drainage R knee with swelling no erythema/ warmth) Labs: CBC, BMP 01/23/17 07:22 01/23/17 07:22 Assessment/Plan S/P washout R knee Cultures negative. ? Non-infectious etiology Septic arthritits L knee - completed 6 w course vancomycin Leukopenia- possibly secondary to vancomycin observe off antibiotics Discharge home off antibiotics when cleared by ortho Outpatient rheumatology evaluation
[2017-01-25] MEDS: POLYETHYLENE GLYCOL 3350 119 GM BTL PO SCH (11:06)
--- NOTE | 2017-01-25 13:52 | PN ---
Physical Exam: SUBJECTIVE: Patient seen and examined OBJECTIVE: Vital Signs Period Temp Pulse Resp BP Sys/Taylor Pulse Ox Last 24 Hr 97.9 F-98.9 F 61-81 18-20 102-130/50-61 99-100 GENERAL: The patient is awake, alert, and fully oriented, in no acute distress. HEAD: Normal with no signs of trauma. EYES: PERRL, extraocular movements intact, sclera anicteric, conjunctiva clear. No ptosis. ENT: Ears normal, nares patent, oropharynx clear without exudates, moist mucous membranes. NECK: Trachea midline, full range of motion, supple. LUNGS: Breath sounds equal, clear to auscultation bilaterally, no wheezes, no crackles, no accessory muscle use. HEART: Regular rate and rhythm, S1, S2 without murmur, rub or gallop. ABDOMEN: Soft, nontender, nondistended, normoactive bowel sounds, no guarding, no rebound, no hepatosplenomegaly, no masses. EXTREMITIES: 2+ pulses, warm, well-perfused, no edema. NEUROLOGICAL: Cranial nerves II through XII grossly intact. Normal speech, gait not observed. PSYCH: Normal mood, normal affect. SKIN: Warm, dry, normal turgor, no rashes or lesions noted Laboratory Results - last 24 hr 01/24/17 01/24/17 01/24/17 07:00 07:16 20:40 Haptoglobin 379 H POC Glucometer 120 Vitamin B12 257 Serum Folate 10 01/25/17 06:20 Haptoglobin POC Glucometer 156 Vitamin B12 Serum Folate Active Medications Generic Name Dose Route Start Last Admin Trade Name Derick PRN Reason Stop Dose Admin Acetaminophen 650 mg 01/21/17 18:24 01/25/17 07:39 Tylenol - PO 650 mg Q6H PRN Administration FEVER OR PAIN Aspirin 81 mg 01/21/17 10:00 01/25/17 09:23 Asa - PO 81 mg DAILY NEHEMIAS Administration Atorvastatin Calcium 20 mg 01/21/17 22:00 01/24/17 21:35 Lipitor - PO 20 mg HS NEHEMIAS Administration Docusate Sodium 100 mg 01/21/17 10:00 01/25/17 09:23 Colace - PO 100 mg BID NEHEMIAS Administration Enoxaparin Sodium 40 mg 01/21/17 10:00 01/25/17 09:24 Lovenox - SQ 40 mg DAILY NEHEMIAS Administration Ferrous Sulfate 325 mg 01/21/17 10:00 01/25/17 09:23 Feosol - PO 325 mg BID NEHEMIAS Administration Hydrochlorothiazide 25 mg 01/21/17 10:00 01/25/17 09:23 Hctz - PO 25 mg DAILY NEHEMIAS Administration Insulin Aspart 1 vial 01/21/17 07:00 01/25/17 11:07 Novolog Vial Sliding Scale - SQ Not Given ACHS [facility] Protocol Lactobacillus Acidophilus 1 tab 01/23/17 13:45 01/25/17 09:28 Bacid - PO 1 tab DAILY NEHEMIAS Administration Losartan Potassium 100 mg 01/21/17 10:00 01/25/17 09:23 Cozaar - PO 100 mg DAILY NEHEMIAS Administration Metoprolol Tartrate 50 mg 01/21/17 10:00 01/25/17 09:23 Lopressor - PO 50 mg BID NEHEMIAS Administration Oxycodone/Acetaminophen 2 combo 01/21/17 00:30 Percocet 5/325 - PO Q6H PRN PAIN LEVEL 6-10 Paroxetine HCl 10 mg 01/21/17 10:00 01/25/17 09:23 Paxil - PO 10 mg DAILY NEHEMIAS Administration Polyethylene Glycol 17 gm 01/25/17 10:45 01/25/17 11:06 Miralax (For Daily Use) - PO 17 g DAILY NEHEMIAS Administration Ranitidine HCl 150 mg 01/22/17 14:00 01/25/17 09:23 Zantac - PO 150 mg DAILY NEHEMIAS Administration ASSESSMENT/PLAN:
--- NOTE | 2017-01-25 14:29 | DS ---
Physical Exam: SUBJECTIVE: Patient seen and examined, patient reports feeling better, denies any fever, reports minimal pain to the right lower extremity OBJECTIVE: This is a 71 y/o male with a past medical history of HTN, HLD, DM, CAD s/p MA 2006, Multiple Left Knee Surgeries, Infections s/p L-knee replacement 10/20/15, Quad Repair secondary to a fall, L- knee surgical debridement 12/14/16, on Vancomycin 1GM QD. Who presents to the ED with pain, swelling and warmth to R- knee x 1 day. Patient reports since having surgery to the L- knee he uses the right knee more. He reports having difficulty getting OOB to chair. Patient's son reports his father had 2 "panic attacks" 3 weeks ago and was seen at [facility]. Patient denies fever, chills, SOB, CP, AP, N/ V/D, dysuria. ER course was notable for: (1) Synovial Fluid- WBC 62978 (2) ESR 123, CRP 16.9 (3) Right Knee Xray- Large joint effusion Vital Signs Period Temp Pulse Resp BP Sys/Taylor Pulse Ox Last 24 Hr 97.9 F-98.9 F 65-81 18-20 102-130/52-61 99-100 PHYSICAL EXAM GENERAL: The patient is awake, alert, and fully oriented, in no acute distress. HEAD: Normal with no signs of trauma. EYES: PERRL, extraocular movements intact, sclera anicteric, conjunctiva clear. No ptosis. ENT: Ears normal, nares patent, oropharynx clear without exudates, moist mucous membranes. NECK: Trachea midline, full range of motion, supple. LUNGS: Breath sounds equal, clear to auscultation bilaterally, no wheezes, no crackles, no accessory muscle use. HEART: Regular rate and rhythm, S1, S2 without murmur, rub or gallop. ABDOMEN: Soft, nontender, nondistended, normoactive bowel sounds, no guarding, no rebound, no hepatosplenomegaly, no masses. EXTREMITIES: 2+ pulses, warm, well-perfused, no edema. left lower extremity, wound well approximated RIGHT LOWER EXTREMITY: surgical site--sutures intact, no erythema, no induration , less than 3 second capillary refill, + 3 pedal pulse. NEUROLOGICAL: Cranial nerves II through XII grossly intact. Normal speech, gait not observed. PSYCH: Normal mood, normal affect. SKIN: Warm, dry, normal turgor, no rashes or lesions noted LABS Laboratory Results - last 24 hr 01/24/17 01/24/17 01/24/17 07:00 07:16 20:40 Haptoglobin 379 H POC Glucometer 120 Vitamin B12 257 Serum Folate 10 01/25/17 06:20 Haptoglobin POC Glucometer 156 Vitamin B12 Serum Folate CBC WBC 2.8 K/mm3 (4.0-10.8) L 01/23/17 07:22 RBC 3.39 M/mm3 (4.00-5.60) L 01/23/17 07:22 Hgb 8.5 GM/dl (11.7-16.9) L 01/23/17 07:22 Hct 26.9 % (35.4-49) L 01/23/17 07:22 MCV 79.2 fl (80-96) L 01/23/17 07:22 MCHC 31.8 g/dl (32.0-35.9) L 01/23/17 07:22 RDW 15.5 % (11.9-15.9) 01/23/17 07:22 Plt Count 256 K/MM3 (134-434) 01/23/17 07:22 MPV 7.7 fl (7.5-11.1) 01/23/17 07:22 Neutrophils % 51.7 % (42.8-82.8) 01/23/17 07:22 Lymphocytes % 24.0 % (8-40) 01/23/17 07:22 Monocytes % 21.3 % (3.8-10.2) H 01/23/17 07:22 Eosinophils % 2.2 % (0-4.5) 01/23/17 07:22 Basophils % 0.8 % (0-2.0) 01/23/17 07:22 Band Neutrophils 6.0 % (0-10) D 01/22/17 07:21 Reactive Lymphocytes 8 % (0-80) 01/20/17 14:42 Platelet Estimate Adequate (NORMAL) 01/20/17 14:42 Platelet Comment Few large plts 01/20/17 14:42 Anisocytosis 2+ 01/20/17 14:42 Macrocytosis 1+ 01/20/17 14:42 Tear Drop Cells 1+ 01/20/17 14:42 Ovalocytes 1+ 01/20/17 14:42 Acanthocytes (Spur) 1+ 01/20/17 14:42 ESR 123 mm/hr (0-20) H 01/20/17 14:42 Retic Count 1.50 % (0.5-1.5) 01/22/17 07:21 Haptoglobin 379 mg/dL (34-200) H 01/24/17 07:16 CMP Sodium 135 mmol/L (136-145) L 01/23/17 07:22 Potassium 3.8 mmol/L (3.5-5.1) 01/23/17 07:22 Chloride 99 mmol/L (98-107) 01/23/17 07:22 Carbon Dioxide 27 mmol/L (22-28) 01/23/17 07:22 Anion Gap 9 (8-16) 01/23/17 07:22 BUN 18 mg/dl (7-18) 01/23/17 07:22 Creatinine 1.2 mg/dl (0.6-1.3) 01/23/17 07:22 Creat Clearance w eGFR 59.68 (>60) 01/23/17 07:22 POC Glucometer 156 UNITS (()) 01/25/17 06:20 Random Glucose 149 mg/dl (74-106) H 01/23/17 07:22 Lactic Acid 1.7 mmol/L (0.4-2.0) 01/20/17 15:00 Calcium 8.7 mg/dl (8.4-10.2) 01/23/17 07:22 Magnesium 1.8 mg/dL (1.8-2.4) 01/24/17 10:50 Iron 25 ug/dL (38-169) L 01/22/17 07:21 TIBC 176 ug/dL (250-450) L 01/22/17 07:21 Iron Saturation 14 % (15-55) L 01/22/17 07:21 Ferritin 904.271 ng/ml (16.4-293.9) H 01/22/17 07:21 Total Bilirubin 1.1 mg/dl (0.2-1.0) H D 01/23/17 07:22 AST 21 U/L (10-42) D 01/23/17 07:22 ALT 27 U/L (10-40) D 01/23/17 07:22 Alkaline Phosphatase 63 U/L (32-92) 01/23/17 07:22 LD Total 102 U/L (91-180) 01/24/17 07:00 C-Reactive Protein 16.9 MG/DL (0.00-0.3) H D 01/20/17 14:42 Total Protein 6.7 g/dl (6.4-8.3) 01/23/17 07:22 Albumin 2.6 g/dl (3.5-5.0) L 01/23/17 07:22 Vitamin B12 257 pg/ml (180-914) 01/24/17 07:00 Serum Folate 10 ng/ml (3.1-17.5) 01/24/17 07:00 Microbiology 01/20/17 19:31 Blood - Peripheral Venous Blood Culture - Preliminary NO GROWTH OBTAINED AFTER 96 HOURS, INCUBATION TO CONTINUE FOR 1 DAYS. 01/20/17 19:00 Blood - Peripheral Venous Blood Culture - Preliminary NO GROWTH OBTAINED AFTER 96 HOURS, INCUBATION TO CONTINUE FOR 1 DAYS. 01/20/17 14:42 Blood - Peripheral Venous Blood Culture - Preliminary NO GROWTH OBTAINED AFTER 96 HOURS, INCUBATION TO CONTINUE FOR 1 DAYS. 01/20/17 14:42 Blood - Peripheral Venous Blood Culture - Preliminary NO GROWTH OBTAINED AFTER 96 HOURS, INCUBATION TO CONTINUE FOR 1 DAYS. 01/20/17 17:30 Synovial Fluid - Knee Gram Stain - Final 01/20/17 17:30 Synovial Fluid - Knee Body Fluid Culture - Final NO GROWTH OF AEROBIC ORGANISMS AFTER 48 HOURS INCUBATION 01/20/17 17:30 Synovial Fluid - Knee Anaerobic Culture - Final NO ANAEROBES WERE ISOLATED 01/20/17 10:00 Synovial Fluid - Knee Gram Stain - Final 01/20/17 10:00 Synovial Fluid - Knee Body Fluid Culture - Final NO GROWTH OF AEROBIC ORGANISMS AFTER 48 HOURS INCUBATION 01/20/17 10:00 Synovial Fluid - Knee Anaerobic Culture - Final NO ANAEROBES WERE ISOLATED 01/20/17 10:00 Synovial Fluid - Knee Gram Stain - Final 01/20/17 10:00 Synovial Fluid - Knee Body Fluid Culture - Final NO GROWTH OF AEROBIC ORGANISMS AFTER 48 HOURS INCUBATION 01/20/17 10:00 Synovial Fluid - Knee Anaerobic Culture - Final NO ANAEROBES WERE ISOLATED HOSPITAL COURSE: patient was admitted from the emergency department for septic arthritis. s/ p right knee I&D (01/20/17, Dr Walter), blood and synovial cultures, negative to date. pt remained afebrile no leukocytosis noted. ID physician, Dr Wang was consulted and patient was started on empiric on vancomycin and zosyn for 5 days. All antibiotics was discontinued on 01/24/17, and patient was observed off antibiotics. echo reviewed, no vegetation noted. Dr Walter, ortho consulted and following. patient has a past medical history of hypertension, loosartan, lopressor, hctz was continued and b/p remained at goal. patient has a significant past medical history of CAD, CABAG x 5 (2006), lipitor was continued. echo (01/23/17) grade I diastolic dysfunction, LV WNL, no vegetation. Microcytic anemia was noted and hgb 8.5 baseline 11.9. iron studies reviewed, likely anemia of chronic inflammation and disease. patient placed on iron supplements. He was noted to be neutropenic, likely secondary to infection vs antibiotic (vancomycin). patient was placed on fingersticks achs with regular insulin sliding scale. Date of Admission:01/20/17 Date of Discharge: 01/25/17 Minutes to complete discharge: 45 Discharge Summary Reason For Visit: RT KNEE PAIN Current Active Problems DVT prophylaxis (Acute) Effusion, right knee (Acute) Heart murmur on physical examination (Acute) Septic joint of right knee joint (Acute) Condition: Improved - Instructions Diet, Activity, Other Instructions: resume low sodium/carbohydrate/fat diet resume all medications as prescribed please follow up with Dr Walter (ortho) within 2 weeks for suture removal keep sutures clean and dry at all times. please follow up with Dr Wang within 1 week please follow with Dr Flores within 1 week if fever, increase pain, or swelling to surgical site develops please return to the emergency department Referrals: Antonio Case MD [Primary Care Provider] - Jostin Tony MD [Staff Physician] - Angel Walter MD [Staff Physician] - Flakita Flores MD [Staff Physician] - Disposition: VNS/HOME HEALTH CARE - Home Medications Comprehensive Discharge Medication List: Ambulatory Orders Losartan/Hydrochlorothiazide [Losartan-Hctz 100-25 mg Tab] 25 - 100 mg PO DAILY 10/12/15 Metoprolol Tartrate [Lopressor -] 50 mg PO BID 10/12/15 Simvastatin 40 mg PO HS 10/12/15 Sitagliptin Phos/Metformin HCl [Janumet 50-500 mg Tablet] 50 - 500 mg PO HS 08/28 Paroxetine HCl [Paxil -] 10 mg PO DAILY 12/13/15 Aspirin [ASA -] 81 mg PO HS 12/14/16 Picc Line Flush [Picc Line Flush -] 8 ml IVPUSH PRN PRN #0 ml 12/20/16 Docusate Sodium [Colace -] 100 mg PO BID 01/20/17 Acetaminophen [Tylenol .Regular Strength -] 650 mg PO Q6H PRN #0 tablet Ferrous Sulfate [Feosol] 325 mg PO BID #60 cap 01/24/17 Lactobacillus Acidophilus [Bacid -] 1 tab PO DAILY tab 01/24/17 Ranitidine [Zantac -] 150 mg PO DAILY tablet 01/24/17 This patient is new to me today: No Emergency Visit: Yes ED Registration Date: 01/20/17 Care time: The patient presented to the Emergency Department on the above date and was hospitalized for further evaluation of their emergent condition. Critical Care patient: No - Discharge Referral Referred to [facility] Med P.C.: No
--- NOTE | 2017-01-25 21:17 | PN ---
Progress Note (short form) - Note Progress Note: Pt lying comf in bed. Mild left knee discomfort. AF VSS RLE wounds CDI small effusion calves soft NT NVID a/p s/p R knee arthroscopic I+D -plan at this point is to observe off abx -will see automation engineering technician as outpt to evaluate for AI disease -continue PT -dvt proph -will go to rehab prior to home -will follow in 1-2 weeks for suture removal
[2017-01-25] MEDS: ATORVASTATIN CA 20 MG TABLET (FP) PO SCH (21:57)
[2017-01-25] MEDS ORDERED: CYANOCOBALAMIN (VITAMIN B-12) 1000 MCG/1 ML VIAL IM ONE (22:00)
[2017-01-25 22:48] VITALS: TEMP 98.2
[2017-01-26 06:36] VITALS: BP 121/56; PULSE 80
[2017-01-26] MEDS ORDERED: INSULIN (NOVOLOG) ASPART 100 UNITS/ML 10ML VIAL ONE ×2 (06:52→11:51)
[2017-01-26] MEDS: INSULIN SLIDING SCALE (NOVOLOG) 1 VIAL SQ SCH ×2 (06:57→11:53)
[2017-01-26] MEDS: ENOXAPARIN NA (PORCINE) 40 MG/0.4 ML DISP.SYRIN SQ SCH (09:30)
[2017-01-26] MEDS: FERROUS SO4 325 MG TABLET (FP) PO SCH (09:31)
[2017-01-26] MEDS: HYDROCHLOROTHIAZIDE 25 MG TABLET (FP) PO SCH (09:31)
[2017-01-26] MEDS: ASPIRIN 81 MG CHEWABLE TABLETS PO SCH (09:31)
[2017-01-26] MEDS: LACTOBACILLUS ACIDOPHILUS 1 EACH TAB (FP) PO SCH (09:31)
[2017-01-26] MEDS: LOSARTAN POTASSIUM 50 MG TABLET (FP) PO SCH (09:31)
[2017-01-26] MEDS: DOCUSATE SODIUM 100 MG CAPSULE (FP) PO SCH (09:31)
[2017-01-26] MEDS: PARoxetine HCL 10 MG TABLET (FP) PO SCH (09:31)
[2017-01-26] MEDS: METOPROLOL TARTRATE 50 MG TABLET (FP) PO SCH (09:31)
[2017-01-26] MEDS: RANITIDINE HCL 150 MG TABLET (FP) PO SCH (09:31)
[2017-01-26] MEDS: ACETAMINOPHEN 325 MG TABLET (FP) PO PRN (09:39)
[2017-01-26] MEDS: POLYETHYLENE GLYCOL 3350 119 GM BTL PO SCH (09:40)
== END 2017-01-26 13:01 | disposition home health service (06) | DRG 488 ==
LOC: FER 13:17 → FM/S 23:24
PROVIDERS: ADMIT Internal Medicine; ATTEND Registered Nurse Emergency
PROC: 0S9C3ZZ Drainage of Right Knee Joint, Percutaneous Approach (ICD-10-PCS; 2017-01-20)
PROC: 0Y9 Anatomical Regions, Lower Extremities, Drainage (ICD-10-PCS; principal; 2017-01-21)
PROC: 0SBC4ZZ Excision of Right Knee Joint, Percutaneous Endoscopic Approach (ICD-10-PCS; 2017-01-21)
DX: M00.9 Pyogenic arthritis, unspecified (principal); E87.1 Hypo-osmolality and hyponatremia; E11.9 Type 2 diabetes mellitus without complications; M25.461 Effusion, right knee; E78.5 Hyperlipidemia, unspecified; I10 Essential (primary) hypertension; N40.0 Benign prostatic hyperplasia without lower urinary tract symptoms; I25.10 Atherosclerotic heart disease of native coronary artery without angina pectoris; I25.2 Old myocardial infarction; Z95.1 Presence of aortocoronary bypass graft; Z87.891 Personal history of nicotine dependence; R01.1 Cardiac murmur, unspecified; Z79.84 Long term (current) use of oral hypoglycemic drugs; D50.9 Iron deficiency anemia, unspecified; Z91.013 Allergy to seafood; D72.819 Decreased white blood cell count, unspecified; Z96.652 Presence of left artificial knee joint; M23.231 Derangement of other medial meniscus due to old tear or injury, right knee; D70.9 Neutropenia, unspecified; M65.88 Other synovitis and tenosynovitis, other site
CPT/HCPCS: 36415; 71010-TC; 73560-TC-RT; 80048; 80053; 82150; 82607; 82728; 82746; 82945; 83010; 83540; 83550; 83605; 83615; 83735; 84157; 85025; 85044; 85651; 86140; 86340; 86618; 87040; 87070; 87075; 87205; 89051; 89060; 93005; 93306-TC; 94010; 94760; 97116-GP; 99285-25; G0480

== ENCOUNTER 2017-07-26 06:38 | Day surgery (SDC) | payer OTHER, BC ==
[2017-07-24 14:54] VITALS: BMI 30.2
--- NOTE | 2017-07-25 17:54 | HP ---
- Patient Scheduled date of Surgery: 07/26/17 Scheduled Surgical Procedure: Phacoemulsification and cataract extraction with PCIOL Affected Eye: Right Chief Complaint (Indication for surgery): Decreased vision affecting ADLs - Ocular History Other Eye History: Other (epithelial dystrophy) Eye Medications: cipro Previous Eye Surgery: none - Medical History Illnesses: Hypertension, Hypercholesterolemia, Diabetes, Other (CAD s/p CABG) Current Medications: Ambulatory Orders Losartan/Hydrochlorothiazide [Losartan-Hctz 100-25 mg Tab] 25 - 100 mg PO DAILY 10/12/15 Metoprolol Tartrate [Lopressor -] 50 mg PO BID 10/12/15 Simvastatin 40 mg PO HS 10/12/15 Sitagliptin Phos/Metformin HCl [Janumet 50-500 mg Tablet] 50 - 500 mg PO HS 08/28 Paroxetine HCl [Paxil -] 10 mg PO DAILY 12/13/15 Aspirin [ASA -] 81 mg PO HS 12/14/16 Acetaminophen [Tylenol .Regular Strength -] 650 mg PO Q6H PRN #0 tablet Ferrous Sulfate [Feosol] 325 mg PO BID #60 cap 01/24/17 Cyanocobalamin [Vitamin B12 -] 1,000 mcg PO DAILY #30 tablet 01/25/17 Docusate Sodium [Colace -] 100 mg PO BID PRN 07/24/17 Allergies/Adverse Reactions: Allergies Allergy/AdvReac Type Severity Reaction Status Date / Time shellfish derived Allergy Severe Vomiting Verified 01/20/17 13:19 Fish Containing Products AdvReac Mild Nausea Verified 01/20/17 13:19 No Known Drug Allergies AdvReac Unknown Verified 01/20/17 13:19 SEAFOOD AdvReac Severe Vomiting Uncoded 01/20/17 13:19 FISH AdvReac Mild Nausea Uncoded 01/20/17 13:19 Ocular Examination - Best Corrected Visual Acuity Distance: Right eye: 20/100 Distance: Left eye: 20/100 - External/Slit Lamp Examination Abnormalities: ptosis, papillae, MDF superotemporal cornea, pigment on endo - Intraocular Pressure Intraocular Pressure - Right eye: 10 Intraocular Pressure-Left eye: 10 - Lens Lens: 3+NS vacuoles - Vitreous/Retina Vitreous/Retina: c:d 0.2 m/v p: peripheral drusen , cystoid degeneration - Special Examination M - Right eye: -4.25 M - Left eye: +0.75-4.00 x 100 K - Right eye: 43.75/44.5 x 180 K - Left eye: 44.5/45.75 AL - Right eye: 24.41 AL - Left eye: 24.41 IOL bag: +17.0 hoya 251 IOL sulcus: +16.5 d hoya 231 IOL AC: +14.5 d MTA4uo - Impression Impression: Cataract Right Eye - Plan Plan: Phacoemulsification and cataract extraction - IOL Right eye Post-hospital care will be provided in office on: 07/27/17
--- NOTE | 2017-07-25 17:55 | HP ---
History & Physical Update - History History: No Change - Physical Physical: No Change - Assessment Assessment: No Change - Plan Plan: No Change
[~2017-07-26 06:38] MED LIST: ACETAMINOPHEN 325 MG TABLET (FP) PO PRN
[2017-07-26] MEDS ORDERED: CIPROFLOXACIN 0.3% EYE DROPS 5 ML BOTTLE ONE (06:56)
[2017-07-26] MEDS: CIPROFLOXACIN HCL 0.3% OPHTH 2.5ML BOTTLE OP SCH ×2 (07:00→07:15)
[2017-07-26] MEDS: PHENYLEPHRINE 2.5% OPHTH SOLN 15 ML BOTTLE OP SCH ×2 (07:00→07:15)
[2017-07-26] MEDS: DICLOFENAC SODIUM 0.1% OPHTHALMIC 2.5ML BOTTLE OP SCH ×2 (07:00→07:15)
[2017-07-26] MEDS: TROPICAMIDE 1% OPHTH SOLN 15 ML BOTTLE OP SCH ×2 (07:00→07:15)
[2017-07-26 07:03] VITALS: TEMP 97.9
[2017-07-26] MEDS ORDERED: LIDOCAINE HCL 2% JELLY (5 ML/TUBE) ONE (07:29)
[2017-07-26] MEDS ORDERED: LIDOCAINE HCL/PF 1% SDV 5ML VIAL ONE (07:29)
[2017-07-26] MEDS ORDERED: EPINEPHrine/PF 1 MG/1 ML (1:1,000) AMPULE ONE (07:29)
[2017-07-26] MEDS ORDERED: TOBRAMYCIN/DEXAMETHASONE OPHTH. OINTMENT 1 TUBE ONE (07:29)
[2017-07-26] MEDS ORDERED: POVIDONE-IODINE 5% OPHTHALMIC PREP 30 ML SOLUTION ONE (07:30)
[2017-07-26] MEDS ORDERED: BSS (NA/CA/MG/K) BALANCED SALT SOLUTION OPHTH SOLN 15 ML BOTTLE ONE (07:30)
[2017-07-26] MEDS ORDERED: BUPIVACAINE HCL/PF 0.75% 10 ML VIAL ONE (07:37)
[2017-07-26] MEDS ORDERED: LIDOCAINE HCL/PF 2% SDV 5ML VIAL ONE (07:37)
[2017-07-26] MEDS ORDERED: PROPOFOL 20 ML ONE ×2 (07:45)
[2017-07-26] MEDS ORDERED: SUCCINYLCHOLINE CHLORIDE 200 MG/10 ML VIAL ONE (07:46)
[2017-07-26] MEDS ORDERED: LIDOCAINE HCL/PF 2% SDV 5ML VIAL PNB ONE (07:55)
[2017-07-26] MEDS ORDERED: BUPIVACAINE HCL/PF 0.75% 10 ML VIAL PNB ONE (07:55)
[2017-07-26] MEDS ORDERED: LIDOCAINE HCL 2% JELLY (5 ML/TUBE) TP ONE (08:00)
[2017-07-26] MEDS ORDERED: LIDOCAINE HCL 1% PRESERVATIVE FREE - 30ML VIAL IO ONE (08:06)
[2017-07-26] MEDS ORDERED: CHONDROITIN SU A/HYALUR SOD 1 KIT IO ONE (08:07)
[2017-07-26] MEDS ORDERED: TOBRAMYCIN/DEXAMETHASONE OPHTH. OINTMENT 1 TUBE TP ONE (08:30)
--- NOTE | 2017-07-26 08:38 | OP ---
Ophthalmology Operative Note Pre-Operative Diagnosis: Cataract Affected Eye: Right Operation: Phacoemulsification and cataract extraction with PCIOL Findings: cataract od Post-Operative Diagnosis: Same as Pre-op Field Tech: None Anesthesiologist: Poly Ortega MD Anesthesia: Local, Topical Specimens Removed: none Drains & Tubes with Location: < 1 cc
[2017-07-26 09:55] VITALS: BP 126/65; PULSE 64
--- NOTE | 2017-07-27 07:04 | OP ---
DATE OF OPERATION: DATE OF DICTATION: 07/26/2017 PREOPERATIVE DIAGNOSIS: Cataract, right eye. POSTOPERATIVE DIAGNOSIS: Cataract, right eye. PROCEDURE: Phacoemulsification and cataract extraction with insertion of posterior chamber intraocular lens, right eye. SURGEON: Apolonia Bianchi MD STOCKBROKER: None. ANESTHESIA: Topical. ANESTHESIOLOGIST: Poly Ortega MD OPERATIVE PROCEDURE: Following satisfactory intravenous sedation, the patient received local anesthesia using a 50:50 mixture of lidocaine 2% and Marcaine 0.75%. A Van Lint lid block was delivered to the right eye using 4 mL of the mixture. A retrobulbar injection was then attempted; however, was unable to be completed due to the patient's anatomy. Therefore, viscous lidocaine gel 2% was placed on the eye and the patient was prepped and draped in the usual sterile fashion so as to expose only the right eye. Ophthalmic Betadine was instilled into the inferior fornix and the lashes were taped out of the surgical field. An eyelid speculum was placed into the right eye. A paracentesis was made in superior clear cornea at the limbus. Nonpreserved lidocaine, 0.5 mL, was injected into the anterior chamber. Viscoelastic material was instilled into the anterior chamber via the paracentesis. The 2.4-mm keratome was then used to create the main incision in temporal clear cornea at the limbus. A continuous curvilinear capsulorrhexis was performed using a cystotome and Utrata forceps. Hydrodissection of the lens cortex was performed using BSS on a cannula until the nucleus was noted to be freely rotating. The phacoemulsification tip was inserted via the main wound and used to sculpt 2 perpendicular grooves into the lens nucleus. The nucleus was cracked into 4 quadrants using 2 instruments. Each quadrant was lifted out of the capsule into the iris plane and individually phacoemulsified. The remaining cortical material was then aspirated using the irrigation and aspiration port. The capsular bag was inflated using Provisc and a preloaded Hoya lens model 251, power +17.0 diopters, was injected into the capsular bag and centered using a Sinskey hook. The residual viscoelastic material was removed from the anterior chamber using irrigation and aspiration. The wound edges were hydrated using BSS. The wound was tested for leakage and was found to be watertight. TobraDex ointment was placed into the eye. The speculum was removed from the eye and the eyelid was closed. A sterile dressing and shield were placed over the eye and the patient was transferred to the recovery room in stable condition. Told to follow up in 1 day. APOLONIA BIANCHI M.D. [id number]
== END 2017-07-26 09:54 | disposition home or self-care (01) ==
LOC: JASU-SURG 06:38
PROVIDERS: ATTEND Ophthalmology
PROC: 08RJ3JZ Replacement of Right Lens with Synthetic Substitute, Percutaneous Approach (ICD-10-PCS; principal; 2017-07-26 07:30)
DX: H26.9 Unspecified cataract (principal)

== ENCOUNTER 2017-09-27 06:59 | Day surgery (SDC) | payer OTHER, BC ==
[2017-08-14 12:19] VITALS: BMI 30.2
--- NOTE | 2017-09-26 17:18 | HP ---
- Patient Scheduled date of Surgery: 09/27/17 Scheduled Surgical Procedure: Phacoemulsification and cataract extraction with PCIOL Affected Eye: Left Chief Complaint (Indication for surgery): Decreased vision affecting ADLs - Ocular History Other Eye History: Other (epithelial dystrophy, KCN OS.) Eye Medications: cipro 0/4, ketorolac 0/4 Previous Eye Surgery: s/p ce/pciol OD +17.5 d hoya 251 - Medical History Illnesses: Cardiac Disorders (Chest pain, SOB, CA, Valve disease) (s/p CABG), Hypertension, Hypercholesterolemia, Diabetes, Other (knee sx, torn quad repair) Current Medications: Ambulatory Orders Losartan/Hydrochlorothiazide [Losartan-Hctz 100-25 mg Tab] 25 - 100 mg PO DAILY 10/12/15 Metoprolol Tartrate [Lopressor -] 50 mg PO BID 10/12/15 Simvastatin 40 mg PO HS 10/12/15 Sitagliptin Phos/Metformin HCl [Janumet 50-500 mg Tablet] 50 - 500 mg PO HS 08/28 Paroxetine HCl [Paxil -] 10 mg PO DAILY 12/13/15 Aspirin [ASA -] 81 mg PO HS 12/14/16 Docusate Sodium [Colace -] 100 mg PO BID PRN 07/24/17 Multivit-Min/FA/Lycopen/Lutein [Centrum Silver Men Tablet] 1 each PO DAILY 07/26 Allergies/Adverse Reactions: Allergies Allergy/AdvReac Type Severity Reaction Status Date / Time shellfish derived Allergy Severe Vomiting Verified 07/26/17 07:10 Fish Containing Products AdvReac Mild Nausea Verified 07/26/17 07:10 No Known Drug Allergies AdvReac Unknown Verified 07/26/17 07:10 SEAFOOD AdvReac Severe Vomiting Uncoded 07/26/17 07:10 FISH AdvReac Mild Nausea Uncoded 07/26/17 07:10 Ocular Examination - Best Corrected Visual Acuity Distance: Right eye: 20/60 Distance: Left eye: 20/20 - External/Slit Lamp Examination Abnormalities: MDF superior third, pigment on endo - Intraocular Pressure Intraocular Pressure - Right eye: 8 Intraocular Pressure-Left eye: 8 - Lens Lens: 2-3 + NS with vacuoles - Vitreous/Retina Vitreous/Retina: C:D 0.2 m/v/p wnl - Special Examination M - Right eye: +0.50-0.50 x 115 M - Left eye: -3.00 K - Right eye: 43.75/44.75 x 035 K - Left eye: 44.25/45.75 x 107 AL - Right eye: 24.41 AL - Left eye: 24.41 IOL bag: +17.5 d hoya 251 IOL sulcus: +17.0 d hoya 251 IOL AC: +15.0 d MTA 4uo - Impression Impression: Cataract Left Eye - Plan Plan: Phacoemulsification and cataract extraction - IOL Left eye Post-hospital care will be provided in office on: 09/28/17
--- NOTE | 2017-09-26 17:28 | HP ---
History & Physical Update - History History: No Change - Physical Physical: No Change - Assessment Assessment: No Change - Plan Plan: No Change
[~2017-09-27 06:59] MED LIST changes: -ACETAMINOPHEN 325 MG TABLET (FP) PO PRN; +TOBRAMYCIN/DEXAMETHASONE OPHTH. OINTMENT 1 TUBE TP ONE
[2017-09-27] MEDS ORDERED: TROPICAMIDE 1% OPHTH SOLN 15 ML BOTTLE OP SCH (07:00)
[2017-09-27 08:06] VITALS: TEMP 98.1
[2017-09-27] MEDS ORDERED: CIPROFLOXACIN 0.3% EYE DROPS 5 ML BOTTLE ONE (08:09)
[2017-09-27] MEDS ORDERED: PHENYLEPHRINE 2.5% OPHTH SOLN 15 ML BOTTLE ONE (08:09)
[2017-09-27] MEDS ORDERED: DICLOFENAC SODIUM 0.1% OPHTHALMIC 2.5ML BOTTLE ONE (08:09)
[2017-09-27] MEDS: TROPICAMIDE 0.5% OPHTHALMIC SOLN 15 ML BOTTLE ONE ×3 (08:10→08:20)
[2017-09-27] MEDS: PHENYLEPHRINE 2.5% OPHTH SOLN 15 ML BOTTLE OP SCH ×3 (08:10→08:20)
[2017-09-27] MEDS: CIPROFLOXACIN HCL 0.3% OPHTH 2.5ML BOTTLE OP SCH ×3 (08:10→08:20)
[2017-09-27] MEDS: DICLOFENAC SODIUM 0.1% OPHTHALMIC 2.5ML BOTTLE OP SCH ×3 (08:10→08:20)
[2017-09-27] MEDS: CYCLOPENTOLATE HCL 1% OPHTH SOLN 2 ML BOTTLE ONE ×3 (08:10→08:20)
[2017-09-27] MEDS ORDERED: EPINEPHrine/PF 1 MG/1 ML (1:1,000) AMPULE ONE ×2 (08:18→08:53)
[2017-09-27] MEDS ORDERED: TOBRAMYCIN/DEXAMETHASONE OPHTH. OINTMENT 1 TUBE ONE (08:18)
[2017-09-27] MEDS ORDERED: LIDOCAINE HCL 2% JELLY (5 ML/TUBE) ONE (08:18)
[2017-09-27] MEDS ORDERED: POVIDONE-IODINE 5% OPHTHALMIC PREP 30 ML SOLUTION ONE (08:19)
[2017-09-27] MEDS ORDERED: LIDOCAINE HCL/PF 1% SDV 5ML VIAL ONE (08:19)
[2017-09-27] MEDS ORDERED: BSS (NA/CA/MG/K) BALANCED SALT SOLUTION OPHTH SOLN 15 ML BOTTLE ONE (08:19)
[2017-09-27] MEDS ORDERED: ACETAMINOPHEN 325 MG TABLET (FP) PO PRN (08:30)
[2017-09-27] MEDS ORDERED: LIDOCAINE HCL 2% JELLY (5 ML/TUBE) TP ONE (08:35)
[2017-09-27] MEDS ORDERED: MIDAZOLAM HCL 2 MG/2 ML SINGLE DOSE VIAL ONE (08:41)
[2017-09-27] MEDS ORDERED: POVIDONE-IODINE 5% OPHTHALMIC PREP 30 ML SOLUTION OS ONE (08:45)
[2017-09-27] MEDS ORDERED: LIDOCAINE HCL 1% PRESERVATIVE FREE - 30ML VIAL IO ONE (08:54)
[2017-09-27] MEDS ORDERED: EPINEPHrine/PF 1 MG/1 ML (1:1,000) AMPULE SQ ONE ×2 (08:54→09:04)
[2017-09-27] MEDS ORDERED: CHONDROITIN SU A/HYALUR SOD 1 KIT IO ONE (08:54)
[2017-09-27] MEDS ORDERED: BSS (NA/CA/MG/K) BALANCED SALT SOLUTION OPHTH SOLN 15 ML BOTTLE OS ONE (08:54)
[2017-09-27] MEDS ORDERED: TOBRAMYCIN/DEXAMETHASONE OPHTH. OINTMENT 1 TUBE TP ONE (09:19)
--- NOTE | 2017-09-27 09:29 | OP ---
Ophthalmology Operative Note Pre-Operative Diagnosis: Cataract Affected Eye: Left Operation: Phacoemulsification and cataract extraction with PCIOL Findings: NS cataract Post-Operative Diagnosis: Same as Pre-op Animal Caretaker: None Anesthesiologist: Poly Ortega MD Anesthesia: Topical Specimens Removed: none Estimated blood loss: none Drains & Tubes with Location: none Operative Report Dictated: Yes
[2017-09-27] MEDS ORDERED: CYCLOPENTOLATE HCL 1% OPHTH SOLN 2 ML BOTTLE OS SCH (09:30)
--- NOTE | 2017-09-27 10:20 | OP ---
DATE OF OPERATION: 09/27/2017 PREOPERATIVE DIAGNOSIS: Nuclear sclerotic cataract, left eye. POSTOPERATIVE DIAGNOSIS: Nuclear sclerotic cataract, left eye. PROCEDURE: Phacoemulsification and cataract extraction with insertion of posterior chamber intraocular lens, left eye. SURGEON: Apolonia Bianchi MD SPINDLE SETTER: None. ANESTHESIA: Topical. ANESTHESIOLOGIST: Poly Ortega MD OPERATIVE PROCEDURE: The patient received lidocaine gel 2% in the holding area and then was gently sedated and prepped and draped in the usual sterile fashion so as to expose only the left eye. Ophthalmic Betadine was instilled into the inferior fornix, and the lashes were taped out of the surgical field. An eyelid speculum was placed into the left eye. A paracentesis was made in inferior clear cornea at the limbus. Next, 0.5 mL of nonpreserved lidocaine 1% was injected into the anterior chamber, and 1 mL of dilute epinephrine 1:10,000 was injected into the anterior chamber. Viscoelastic material was instilled into the anterior chamber via the paracentesis. A 2.4-mm keratome was then used to create the main incision in temporal clear cornea at the limbus. A continuous curvilinear capsulorrhexis was performed using a cystotome and Utrata forceps. Hydrodissection of the lens cortex was performed using BSS on a cannula until the nucleus was noted to be freely rotating. The phacoemulsification tip was inserted via the main wound and used to sculpt 2 perpendicular grooves into the lens nucleus. The nucleus was crackled into 4 quadrants. Each quadrant was lifted out of the capsule into the iris plane and individually phacoemulsified. The remaining cortical material was then aspirated using the irrigation and aspiration port. The capsular bag was inflated using Provisc, and a preloaded Hoya lens model 251, power +17.5 diopters was injected into the capsular bag and centered using a Sinskey hook. The residual viscoelastic material was removed from the anterior chamber using irrigation and aspiration. The wound edges were hydrated using BSS. The wound was tested for leakage. It was found to be watertight. Therefore, TobraDex ointment was placed in the eye, and the speculum was removed from the eye. A sterile dressing and shield were placed over the eye, and the patient was transferred to the recovery room in stable condition, told to follow up in 1 day. APOLONIA BIANCHI M.D. [id number]
[2017-09-27 11:38] VITALS: BP 137/61; PULSE 60
== END 2017-09-27 10:35 | disposition home or self-care (01) ==
LOC: JASU-SURG 06:59
PROVIDERS: ATTEND Ophthalmology
PROC: 08RK3JZ Replacement of Left Lens with Synthetic Substitute, Percutaneous Approach (ICD-10-PCS; principal; 2017-09-27 08:15)
DX: H25.12 Age-related nuclear cataract, left eye (principal)
CPT/HCPCS: 82962